=== PATIENT | male | born 1950 | race Caucasian/White ===

== ENCOUNTER → 2016-11-13 | Outpatient (CLI) | payer MEDICARE | LOC: BFHH 12:23 | PROVIDERS: ATTEND Family Medicine | DX: I10 Essential (primary) hypertension (principal); N42.9 Disorder of prostate, unspecified | CPT/HCPCS: 80053; 80061; 84443; 85025; G0103 ==

== ENCOUNTER → 2016-11-16 | Outpatient (CLI) | payer MEDICARE | LOC: GMAM 14:31 | PROVIDERS: ATTEND Family Medicine | DX: D64.9 Anemia, unspecified (principal); R82.99 Other abnormal findings in urine ==

== ENCOUNTER → 2016-12-18 | Outpatient (CLI) | payer MEDICARE | END | disposition home or self-care (01) | LOC: BFHH 16:48 | PROVIDERS: ATTEND Family Medicine | DX: D64.9 Anemia, unspecified (principal) ==

== ENCOUNTER → 2017-01-18 | Outpatient (CLI) | payer MEDICARE | END | disposition home or self-care (01) | LOC: BFHH 13:40 | PROVIDERS: ATTEND Family Medicine | DX: D64.9 Anemia, unspecified (principal) ==

== ENCOUNTER → 2017-03-27 | Outpatient (CLI) | payer MEDICARE | END | disposition home or self-care (01) | LOC: GMAM 14:52 | PROVIDERS: ATTEND Family Medicine | DX: D64.9 Anemia, unspecified (principal); I10 Essential (primary) hypertension ==

== ENCOUNTER → 2017-07-20 | Outpatient (CLI) | payer MEDICARE ==
--- NOTE | 2017-07-21 08:29 | CT ---
PROCEDURE: Head HISTORY: CVA Indication: Same as above Comparison: 05/06/2016 Technique: CT of the head was done without intravenous contrast was done in the orthogonal planes. This exam was performed according to our departmental dose-optimization program, which includes automated exposure control, adjustment of the mA and/or KV according to the patient's size and/or use of iterative reconstruction technique. FINDINGS: There is no intracranial hemorrhage, midline shift, mass effect or acute focal infarct. Stable symmetric prominence of the ventricular system is again noted. Surgical coils are again seen at the level of the third ventricle and the left lateral ventricle If clinical concern exists regarding an acute ischemic/vascular pathology being responsible for patient's symptomatology, an MRI of the brain is more sensitive than the current study, in ruling out such a possibility. There is good stock/white matter differentiation. The mastoid air cells are unremarkable . The paranasal sinuses are unremarkable . There is no visualization of acute fractures involving the calvarium or the skull base. IMPRESSION: There is no intracranial hemorrhage, midline shift, mass effect or acute focal infarct. Stable symmetric prominence of the ventricular system is again noted, unchanged since 07/17/2016. Surgical coils are again seen at the level of the third ventricle and the left lateral ventricle Electronically signed by: Khoa Nicole MD 07/21/2017 8:28 AM CDT Workstation: [id number]
--- NOTE | 2017-07-23 08:54 | US ---
EXAM DESCRIPTION: Carotid Duplex CLINICAL HISTORY: CVA COMPARISON: None TECHNIQUE: Grayscale and color Doppler ultrasound examination of the carotid and vertebral artery systems bilaterally. Maximum peak systolic velocity (PSV) / end diastolic velocity (EDV) measurements were obtained. FINDINGS: RIGHT:Mild calcified plaque identified within the common carotid artery.. The common carotid, proximal, mid and distal internal carotid and external carotid arteries are patent without elevated systolic velocities. Vertebral artery flow is antegrade. LEFT: Mild calcified plaque identified within the common carotid artery.. The common carotid, proximal, mid and distal internal carotid and external carotid arteries are patent without elevated systolic velocities.. Vertebral artery flow is antegrade. IMPRESSION: Mild calcified atherosclerotic disease bilateral common carotid arteries. No hemodynamically significant rate limiting stenosis is present by NASCET criteria. Electronically signed by: Billy James MD 07/23/2017 8:52 AM CDT
== END ==
LOC: MRI 11:02
PROVIDERS: ATTEND Family Medicine
DX: H53.123 Transient visual loss, bilateral (principal); I63.9 Cerebral infarction, unspecified; I65.23 Occlusion and stenosis of bilateral carotid arteries; H53.2 Diplopia; J44.9 Chronic obstructive pulmonary disease, unspecified

== ENCOUNTER → 2017-08-27 | Outpatient (CLI) | payer MEDICARE | END | disposition home or self-care (01) | LOC: GMAM 17:15 | PROVIDERS: ATTEND Family Medicine | DX: R53.83 Other fatigue (principal) ==

== ENCOUNTER → 2018-08-20 | Outpatient (CLI) | payer MEDICARE | LOC: GMAM 13:33 | PROVIDERS: ATTEND Family Medicine | DX: D64.9 Anemia, unspecified (principal); R53.83 Other fatigue ==

== ENCOUNTER → 2018-08-22 | Outpatient (CLI) | payer MEDICARE, OTHER ==
--- NOTE | 2018-08-22 17:27 | CT ---
Procedure: CT LUNG SCREENING Exam Date: 08/22/2018. Ordering Provider: Jose Barajas Clinical Indication: Z87.891 This patient meets eligibility criteria for low-dose CT lung cancer screening. Comparison: Chest CT scan 07/23/2018. Technique: Using a multislice scanner, sequential helical axial imaging was obtained in the thorax, 2.5 mm thickness, 2.5 mm separation, from the level of the thoracic inlet through the lung bases without IV contrast. A low dose protocol was utilized: CTDI: 1.76 mGy. 120. kVp. 45 mA. 2D sagittal and coronal reconstructed images, 6.0 mm thickness, were obtained. This exam was performed according to our departmental dose optimization program which includes use of automated exposure control, adjustment of the mA and/or kV according to patient size and/or use of iterative reconstruction technique. FINDINGS: Lungs and large airways: 1.8 x 0.8 cm semisolid complex associated with asymmetric pleural thickening projecting into the right apex, from the posterior pleura, compared to the contralateral left apex. The nodular components more dense than the adjacent pleural thickening, and measure 7 mm and 6 mm. Axial sequence, images 8-10. Solid nodule abutting the right anterolateral upper lobe associated with pleural thickening measuring 6 mm on image 26. 3 mm solid nodule associated with pleural thickening posterior medial left upper lobe just above the apex images 14-17. Bilateral emphysematous blebs in a centrilobular pattern. Bibasilar scarring. Minimal perihilar peribronchial wall cuffing. No infiltrate or mass bilaterally. Mild hyperinflation.. Pleura: Pleural abnormalities as previously noted. No effusion or pneumothorax bilaterally. Mediastinum and madiha: evaluation limited by low dose technique and lack of IV contrast. Azygos nodes short axis diameter 10 mm. Right paratracheal nodes short axis diameter 11 mm. Other smaller paratracheal nodes. AP window nodes short axis diameter 8 mm. Right hilar short axis lymph node 10 mm. Subcarinal lymph node short axis XI mm. Smaller left hilar nodes. Heart and great vessels: Atherosclerotic calcifications in the proximal brachiocephalic vessels aortic arch and descending thoracic aorta. Coronary artery calcifications. Chest wall, lower neck, axillae: Evaluation also limited by same factors as described above. Small lymph nodes in the neck base bilateral axilla but no soft tissue masses on the chest wall. Upper abdomen: Included peritoneal cavity with no fluid. Bones: Evaluation limited by screening MIP technique. Multiple levels of spondylosis on the resting spine. Arthrosis bilateral sternoclavicular joints. No distinct lytic or blastic bone lesions bilaterally. IMPRESSION: 1. 1.8 cm semisolid complex which is associated with the right posterior apical pleura. 7 mm and 6 mm solid components. 6 mm solid nodule also associated with the pleura of the anterior lateral right upper lobe. Bilateral centrilobular emphysema more prevalent in the upper lung prabhakar. Borderline enlarged nodes in the mediastinum and hilum. Please see below for Lung RADS category and FOLLOW-UP.* *Lung RADS category Category 4a - Findings for which additional diagnostic testing and/or tissue sampling is recommended (5 - 15% malignancy probability). Nodules: Part solid nodule measuring more than 6mm in total with a solid component 6mm to less than 8mm, or with a new or growing less than 4mm solid component. Follow-up: Please return for a Low Dose Chest CT in 3 months for re-evaluation. PET/CT may be used when there is an 8 mm or greater solid component. Electronically signed by: Erick Harman MD 08/22/2018 5:25 PM CDT
== END ==
LOC: CT 09:00
PROVIDERS: ATTEND Family Medicine
DX: Z87.891 Personal history of nicotine dependence (principal)

== ENCOUNTER 2018-10-25 16:25 | Emergency (ER) | payer MEDICARE, OTHER ==
[2018-10-25] MEDS ORDERED: SODIUM CHLORIDE 0.9% 1000ML 1,000 ML IVS ONE (17:02)
--- NOTE | 2018-10-25 17:05 | ED.PDOC ---
History of Present Illness - General Chief Complaint: Respiratory Problem Stated Complaint: SHORTNESS OF BREATH Time Seen by Provider: 10/25/18 16:30 Source: patient, family - History of Present Illness Comments: Has had cough x 2 days and today has had fever , weakness, and confusion Cough Quality/Degree: productive cough Possible Cause: chronic episodes Improving Factors: nothing Worsening Factors: nothing Associated Symptoms: chest pain/soreness, cough, fever/chills, headache, shortness of breath Allergies/Adverse Reactions: Allergies Alprazolam Allergy (Verified 06/01/18 19:51) Hydromorphone [From Dilaudid] Allergy (Verified 06/01/18 19:51) Home Medications: Ambulatory Orders Acetaminophen [Tylenol] 650 mg PO Q6H PRN tab 06/04/18 Albuterol Sulfate Nebs [Proventil Nebs] 2.5 mg NEB Q4H PRN #120 vial 06/04/18 Cefdinir 300 mg PO BID #14 capsule 06/04/18 Escitalopram [Lexapro] 10 mg PO DAILY #30 tab 06/04/18 Ferrous Sulfate [Feosol Tab] 325 mg PO BIDFD #60 tab 06/04/18 Folic Acid 1 mg PO DAILY #30 tab 06/04/18 Gentamicin 0.3% Ophth Ruth Ann [Garamycin Opthalmic Solution] 1 drop BOTH_EYES QID drops 06/04/18 Ipratropium/Albuterol [Duoneb] 3 ml NEB RTQID #120 vial 06/04/18 Nicotine Patch 14 mg [Habitrol Patch 14mg] 1 ea TD DAILY patch 06/04/18 Polyethylene Glycol 3350 [Miralax] 17 gm PO DAILY pckt 06/04/18 levoFLOXacin [Levaquin] 500 mg PO DAILY #7 tab 10/25/18 Review of Systems - Review of Systems Constitutional: States: fever EENTM: States: no symptoms reported Respiratory: States: cough, short of breath Cardiology: States: chest pain Gastrointestinal/Abdominal: Denies: abdominal pain, diarrhea, nausea, vomiting Genitourinary: States: no symptoms reported Musculoskeletal: States: no symptoms reported Skin: States: no symptoms reported Neurological: States: headache Endocrine: States: no symptoms reported Hematologic/Lymphatic: States: no symptoms reported Past Medical History (General) - Patient Medical History Hx Seizures: No Hx Stroke: Yes Hx Asthma: Yes Hx of COPD: Yes Hx Cardiac Disorders: No - per family Hx Congestive Heart Failure: No Hx Pacemaker: No Hx Hypertension: No Hx Thyroid Disease: No Hx Diabetes: No Hx Gastroesophageal Reflux: No Hx Renal Disease: No Hx Cancer: No Hx of HIV: No Hx Hepatitis C: No Hx MRSA: No Surgical History: other - Vaccination History Hx Tetanus, Diphtheria Vaccination: No Hx Influenza Vaccination: Yes Hx Pneumococcal Vaccination: Yes - 2018 - Social History Hx Tobacco Use: Yes Hx Alcohol Use: Yes - in past Hx Substance Use: No Hx Substance Use Treatment: No Hx Depression: No Hx Physical Abuse: No Hx Emotional Abuse: No - Activities of Daily Living Care Home/Assisted [facility] (if applicable)[facility] Family Medical History - Family History Mother Family History: No Known Physical Exam - Physical Exam General Appearance: Alert, Obvious distress Eye Exam: bilateral normal ENT Exam: pharynx normal, other - dry mucosa Neck: non-tender, full range of motion Respiratory: normal breath sounds, rhonchi Cardiovascular/Chest: normal peripheral pulses, regular rate, rhythm, no edema Gastrointestinal/Abdominal: normal bowel sounds, non tender, soft Extremity: normal range of motion, non-tender, normal inspection, no pedal edema Neurologic: alert, normal mood/affect, oriented x 3 Skin Exam: normal color, warm/dry Departure - Departure Clinical Impression: COPD (chronic obstructive pulmonary disease) Qualifiers: COPD type: COPD with acute lower respiratory infection Qualified Code(s): J44.0 - Chronic obstructive pulmonary disease with acute lower respiratory infection Disposition: Discharge to SNF Condition: Fair Departure Forms: ED Discharge - Pt. Copy, Patient Portal Self Enrollment Referrals: Lee Johnson MD [Primary Care Provider] - 1-2 Weeks Prescriptions: levoFLOXacin [Levaquin] 500 mg PO DAILY #7 tab Home Medications: Ambulatory Orders Acetaminophen [Tylenol] 650 mg PO Q6H PRN tab 06/04/18 Albuterol Sulfate Nebs [Proventil Nebs] 2.5 mg NEB Q4H PRN #120 vial 06/04/18 Cefdinir 300 mg PO BID #14 capsule 06/04/18 Escitalopram [Lexapro] 10 mg PO DAILY #30 tab 06/04/18 Ferrous Sulfate [Feosol Tab] 325 mg PO BIDFD #60 tab 06/04/18 Folic Acid 1 mg PO DAILY #30 tab 06/04/18 Gentamicin 0.3% Ophth Ruth Ann [Garamycin Opthalmic Solution] 1 drop BOTH_EYES QID drops 06/04/18 Ipratropium/Albuterol [Duoneb] 3 ml NEB RTQID #120 vial 06/04/18 Nicotine Patch 14 mg [Habitrol Patch 14mg] 1 ea TD DAILY patch 06/04/18 Polyethylene Glycol 3350 [Miralax] 17 gm PO DAILY pckt 06/04/18 levoFLOXacin [Levaquin] 500 mg PO DAILY #7 tab 10/25/18
--- NOTE | 2018-10-25 17:11 | RAD ---
EXAM DESCRIPTION: Chest,1 View CLINICAL HISTORY: Chest discomfort COMPARISON: Chest radiograph dated June 03, 2018 TECHNIQUE: Single upright portable frontal view the chest FINDINGS: Cardiomediastinal silhouette and pulmonary vascularity are within normal limits. Lung volumes are hyperinflated, compatible with COPD. Lungs show no confluent infiltrates. No pleural effusion. No pneumothorax. No acute osseous abnormality. IMPRESSION: 1. No acute cardiopulmonary process. 2. COPD. Electronically signed by: Daron Granda MD 10/25/2018 5:09 PM [facility]
[2018-10-25] MEDS ORDERED: IPRATROPIUM/ALBUTEROL 3 ML VIAL NEB ONE (17:15)
[2018-10-25] MEDS ORDERED: ACETAMINOPHEN 500 MG TAB ONE (17:55)
[2018-10-25] MEDS ORDERED: ACETAMINOPHEN 500 MG TAB PO ONE (17:57)
[2018-10-25] MEDS ORDERED: levoFLOXacin 750MG IV 750 MG in PREMIX BAG 1 BAG IVPB ONE (19:08)
[2018-10-25 20:54] VITALS: O2SAT 94
[2018-10-25 21:53] VITALS: BP 106/54; TEMP 99.1
== END 2018-10-25 21:10 ==
LOC: ER 16:25
DX: J44.0 Chronic obstructive pulmonary disease with (acute) lower respiratory infection (principal); Z87.891 Personal history of nicotine dependence; Z86.73 Personal history of transient ischemic attack (TIA), and cerebral infarction without residual deficits; Z79.899 Other long term (current) drug therapy; Z88.8 Allergy status to other drugs, medicaments and biological substances
CPT/HCPCS: 36415; 36600; 71045; 80053; 82803; 82805; 85025; 87040; 87502; 94640; J1956; J7030; J7620

== ENCOUNTER 2018-11-19 09:52 | Inpatient (IN) | payer MEDICARE ==
--- NOTE | 2018-11-19 10:48 | RAD ---
EXAM DESCRIPTION: Chest,1 View CLINICAL HISTORY: sob, confusion COMPARISON: 25 October 2018 TECHNIQUE: AP portable chest FINDINGS: The lungs are free of acute infiltrate. A background of chronic interstitial lung disease is noted. The heart is within range of normal. No pleural fluid is seen. IMPRESSION: Findings suggestive of chronic obstructive pulmonary disease are observed. No acute infiltrate is detected. Electronically signed by: Daron Dacosta MD 11/19/2018 10:47 AM [facility]
[2018-11-19] MEDS ORDERED: IPRATROPIUM/ALBUTEROL 3 ML VIAL NEB ONE (11:11)
[2018-11-19] MEDS ORDERED: SODIUM CHLORIDE 0.9% 1000ML 500 ML IVS ONE (11:11)
[2018-11-19] MEDS ORDERED: methylPREDNISolone SODIUM SUC 125 MG/2 ML VIAL IV ONE (11:57)
[2018-11-19] MEDS ORDERED: AZITHROMYCIN IV 500 MG in SODIUM CHLORIDE 0.9% 250ML 250 ML IVPB ONE (11:57)
[2018-11-19] MEDS ORDERED: CEFEPIME 2 GM in SODIUM CHL 0.9% 50ML MIN-BAG+ 50 ML IVPB ONE (11:57)
--- NOTE | 2018-11-19 12:05 | ED.PDOC ---
History of Present Illness - General Chief Complaint: Respiratory Problem Stated Complaint: cough and congestion with some low grade fever Time Seen by Provider: 11/19/18 09:59 Source: patient Exam Limitations: no limitations - History of Present Illness Initial Comments: the patient is 68-year-old male with end-stage COPD presenting to the emergency room secondary to confusion and fevers for the last 1-3 days. He has also had a productive cough. He does have fairly advanced COPD and does have optional oxygen at the senior living. It appears however that the last few months he has not been wearing his oxygen. Oxygen saturations checked earlier today while he was off of oxygen showed saturations down around 83-85% on room air. He is requiring about 2-1/2 L to maintain oxygen saturation greater than 90% here. The patient did have some significant confusion upon arrival here but once we got Oxygen after 30 minutes to an hour his confusion seems to have r esolved. He does have diffuse wheezes and significant decreased air movement bilaterally. He also does have scattered rales though is difficult to tell how much of this part is new. Reported fevers are up to 102 from the senior living by secondhand information. Timing/Duration: unsure Severity: moderate Improving Factors: nothing, other - Oxygen Worsening Factors: nothing Associated Symptoms: fever/chills, shortness of breath Allergies/Adverse Reactions: Allergies Alprazolam Allergy (Verified 06/01/18 19:51) Hydromorphone [From Dilaudid] Allergy (Verified 06/01/18 19:51) Home Medications: Ambulatory Orders Acetaminophen [Tylenol] 650 mg PO Q6H PRN tab 06/04/18 Albuterol Sulfate Nebs [Proventil Nebs] 2.5 mg NEB Q4H PRN #120 vial 06/04/18 Cefdinir 300 mg PO BID #14 capsule 06/04/18 Escitalopram [Lexapro] 10 mg PO DAILY #30 tab 06/04/18 Ferrous Sulfate [Feosol Tab] 325 mg PO BIDFD #60 tab 06/04/18 Folic Acid 1 mg PO DAILY #30 tab 06/04/18 Gentamicin 0.3% Ophth Ruth Ann [Garamycin Opthalmic Solution] 1 drop BOTH_EYES QID drops 06/04/18 Ipratropium/Albuterol [Duoneb] 3 ml NEB RTQID #120 vial 06/04/18 Nicotine Patch 14 mg [Habitrol Patch 14mg] 1 ea TD DAILY patch 06/04/18 Polyethylene Glycol 3350 [Miralax] 17 gm PO DAILY pckt 06/04/18 levoFLOXacin [Levaquin] 500 mg PO DAILY #7 tab 10/25/18 Review of Systems - Review of Systems Constitutional: States: fever, malaise EENTM: States: nose congestion Respiratory: States: cough, short of breath, wheezing Cardiology: States: no symptoms reported Gastrointestinal/Abdominal: States: no symptoms reported Genitourinary: States: no symptoms reported Musculoskeletal: States: no symptoms reported Skin: States: no symptoms reported Neurological: States: other - mild confusion Endocrine: States: no symptoms reported All other Systems: No Change from Baseline Past Medical History (General) - Patient Medical History Hx Seizures: No Hx Stroke: Yes Hx Asthma: Yes Hx of COPD: Yes Hx Cardiac Disorders: No - per family Hx Congestive Heart Failure: No Hx Pacemaker: No Hx Hypertension: No Hx Thyroid Disease: No Hx Diabetes: No Hx Gastroesophageal Reflux: No Hx Renal Disease: No Hx Cancer: No Hx of HIV: No Hx Hepatitis C: No Hx MRSA: No - Vaccination History Hx Tetanus, Diphtheria Vaccination: Yes Hx Influenza Vaccination: Yes Hx Pneumococcal Vaccination: Yes Immunizations Up to Date: Yes - Social History Hx Tobacco Use: Yes Hx Alcohol Use: No Hx Substance Use: No Hx Substance Use Treatment: No Hx Depression: No Hx Physical Abuse: No Hx Emotional Abuse: No - Activities of Daily Living Detention/[facility]isted [facility] (if applicable)[facility] Family Medical History - Family History Mother Family History: No Known Physical Exam - Physical Exam General Appearance: Alert, Frail, Ill Appearing Eye Exam: right normal, left other - he keeps his left eye closed most the time Ears, Nose, Throat: hearing grossly normal - chronically decreased bilaterally, normal pharynx, nasal congestion Neck: full range of motion, supple Respiratory: accessory muscle use - moderate, crackles, rales, rhonchi, wheezing Cardiovascular/Chest: normal peripheral pulses, regular rate, rhythm, no edema Peripheral Pulses: radial,right: 2+, radial,left: 2+, dorsalis pedis,right: 2+, dorsalis pedis,left: 2+ Gastrointestinal/Abdominal: non tender, soft Rectal Exam: deferred Back Exam: no CVA tenderness, no vertebral tenderness Extremity: normal range of motion, non-tender, normal inspection, no pedal edema, normal capillary refill Neurologic: printmaker II-XII nml as tested, alert, normal mood/affect, oriented x 3 Skin Exam: normal color Comments: Vital Signs - 24 hr 11/19/18 11/19/18 11/19/18 10:08 10:16 11:36 Temperature 98.8 F Pulse Rate 82 Pulse Rate [ 78 monitor] Respiratory 20 20 18 Rate Blood Pressure 140/62 [LA] O2 Sat by Pulse 86 L 96 Oximetry Progress - Progress Progress: 11/19/18 12:07 the patient is a 68-year-old male presenting with what appears to be a hypoxic encephalopathy. His mental status did clear significantly after an hour of appropriate oxygen application. The patient appears to have a least a significant COPD exacerbation going. He does need to remain on at least a couple of liters of oxygen for the next few days. He has received breathing treatments, steroids, cefepime and azithromycin. Blood and sputum cultures are being done and a urine is currently being collected. He has tested negative for influenza. Admit for further care. - Results/Orders Results/Orders: chest x-rays consistent with chronic changes from COPD. No obvious large lobar pneumonia. Laboratory Tests 11/19/18 11/19/18 11/19/18 10:22 10:22 10:22 WBC 11.7 H RBC 4.13 L Hgb 12.3 L Hct 39.1 L MCV 94.7 H MCH 29.7 MCHC 31.4 L RDW 14.6 H Plt Count 174 MPV 9.3 Absolute Neuts (auto) 9.30 H Absolute Lymphs (auto) 0.60 L Absolute Monos (auto) 1.70 H Absolute Eos (auto) 0.10 Absolute Basos (auto) 0.00 Neutrophils % 79.3 H Lymphocytes % 5.0 L Monocytes % 14.6 H Eosinophils % 0.7 L Basophils % 0.4 Sodium 138 Potassium 4.2 Chloride 101 Carbon Dioxide 29 Anion Gap 12.2 BUN 20 H Creatinine 0.73 BUN/Creatinine Ratio 27.4 H Random Glucose 122 H Serum Osmolality 279.6 Lactic Acid 1.0 Calcium 8.7 Total Bilirubin 0.5 AST 27 ALT 21 Alkaline Phosphatase 100 Creatine Kinase 56 CK-MB (CK-2) 2.6 CK-MB (CK-2) % Not Reportable Troponin I < 0.02 B-Natriuretic Peptide 300.0 H* Serum Total Protein 6.8 Albumin 3.2 Globulin 3.6 H Albumin/Globulin Ratio 0.9 L Rapid flu is negative. Departure - Departure Clinical Impression: COPD with acute exacerbation, Hypoxic encephalopathy Disposition: Admit Patient Referrals: Lee Johnson MD [Primary Care Provider] - 1-2 Weeks Home Medications: Ambulatory Orders Acetaminophen [Tylenol] 650 mg PO Q6H PRN tab 06/04/18 Albuterol Sulfate Nebs [Proventil Nebs] 2.5 mg NEB Q4H PRN #120 vial 06/04/18 Cefdinir 300 mg PO BID #14 capsule 06/04/18 Escitalopram [Lexapro] 10 mg PO DAILY #30 tab 06/04/18 Ferrous Sulfate [Feosol Tab] 325 mg PO BIDFD #60 tab 06/04/18 Folic Acid 1 mg PO DAILY #30 tab 06/04/18 Gentamicin 0.3% Ophth Ruth Ann [Garamycin Opthalmic Solution] 1 drop BOTH_EYES QID drops 06/04/18 Ipratropium/Albuterol [Duoneb] 3 ml NEB RTQID #120 vial 06/04/18 Nicotine Patch 14 mg [Habitrol Patch 14mg] 1 ea TD DAILY patch 06/04/18 Polyethylene Glycol 3350 [Miralax] 17 gm PO DAILY pckt 06/04/18 levoFLOXacin [Levaquin] 500 mg PO DAILY #7 tab 10/25/18 Decision To Admit - Decistion To Admit Decision to Admit Reason: Medical Nature Decision to Admit Date: 11/19/18 Decision to Admit Time: 12:08
[2018-11-19] MEDS ORDERED: CEFEPIME 2 GM VIAL ONE ×2 (12:10→22:47)
[2018-11-19] MEDS ORDERED: SODIUM CHLORIDE 0.9% 250ML 250 ML ONE (12:10)
[2018-11-19] MEDS ORDERED: SODIUM CHL 0.9% 50ML MIN-BAG+ 50 ML IVPB ONE ×2 (12:10→22:47)
[2018-11-19] MEDS ORDERED: AZITHROMYCIN IV 500 MG VIAL IVPB ONE (12:10)
--- NOTE | 2018-11-19 13:16 | HP ---
SUPERVISING PHYSICIAN: Clemente Banerjee M.D. CHIEF COMPLAINT: Cough and congestion with a fever. HISTORY OF PRESENT ILLNESS: Mr. Rashid is a 68 year-old male patient that lives at [facility]. He has a history of end stage chronic obstructive pulmonary disease and he presented to the Emergency Room today secondary to confusion and fevers that have been occurring over the last 3 days. He was also noted to have a productive cough and has been using some oxygen at the [facility]. It has been noted that the patient apparently has not been using his oxygen in the last month and his oxygen saturations today were showing off oxygen to be around 83 to 85%. In the E. R., he was requiring 2.5 liters to maintain saturations of 90%. On arrival to the Emergency Room it was noted he was showing significant confusion when not on oxygen, but within 30 minutes of placement on oxygen his confusion resolved. He was also noted to have significant wheezing and decreased air movement bilaterally with scattered rales. There was reported fevers in the [facility] up to 102. His x-ray in the E. R. per radiology interpretation showed findings suggestive chronic obstructive pulmonary disease observed, but no acute infiltrate was detected. Laboratory studies showed he had a leukocytosis of 11,700 with a left shift. Hemoglobin was 12.3, hematocrit 39.1. Chemistries showed BNP elevated at 300, otherwise troponin was normal at less than 0.02 and electrolytes were showing to be within normal limits. Lactic acid was 1. Given the patient's confusion off oxygen and findings consistent with an exacerbation of COPD, Dr. Tacho Johnson, E. R. physician, requested the patient be admitted for ongoing evaluation and further treatment. He also had an Influenza swab that was negative. Prior to admission he was given breathing treatments, steroids and started on antibiotics with Cefepime and azithromycin with concerns for healthcare acquired pneumonia. The patient was admitted in stable condition. PAST MEDICAL HISTORY: 1. Chronic obstructive pulmonary disease. 2. 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 3. Dementia with depression. PAST SURGICAL HISTORY: 1. Cataract removal. 2. 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 CURRENT MEDICATIONS: 1. Vitamin C 1 tablet daily. 2. Debrox otic 6.5% both ears daily as needed. 3. Albuterol nebulizers 2.5 mg every 4 hours as needed. 4. Tylenol 650 mg every 6 hours as needed. 5. Artificial Tears both eyes as needed every 6 hours. 6. Folic acid 1 mg daily. 7. Ferrous tablet 325 mg daily. 8. Polyethylene glycol 1450 one dose daily. 9. Breo Ellipta one inhalation daily. 10. Escitalopram oxalate 10 mg daily. 11. Spiriva Respimat 2.5 mcg daily. ALLERGIES: ALPRAZOLAM AND HYDROMORPHONE. FAMILY HISTORY: Positive for COPD and alcoholism. SOCIAL HISTORY: The patient lives at [facility]. 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 He is . Has 2 children. He does have a history of alcohol usage quite heavily but quit in 2013. He is a current smoker of 1 to 5 cigarettes per day. REVIEW OF SYSTEMS: CONSTITUTIONAL: Positive for fever reported up to 102 with general malaise. No reported unintentional weight loss. Noted some generalized weakness. HEENT: History of double vision from past hemorrhagic stroke as noted in his history. Positive for nasal congestion. Negative for ear aches or sore throat. RESPIRATORY: Positive for cough, shortness of breath and wheezing. CARDIOVASCULAR: Negative for any chest pains, palpitations, syncopal episodes or peripheral edema. GASTROINTESTINAL: Negative for nausea, vomiting, diarrhea, constipation or abdominal pains. GENITOURINARY: Denies any dysuria, hematuria, polyuria or other urinary symptoms. NEUROLOGIC: Negative for ataxia, headaches, seizure activity, syncopal episodes. PHYSICAL EXAMINATION: VITAL SIGNS: Temperature 98.8, pulse 78, blood pressure 140/62, respirations 20, satting 86% on room air, improving to 96% on nasal cannula at 2 liters after a breathing treatment. Weight 58.7 kg which is significantly lower than previous admission on 06/01/18 at which time he weighed 70.4 kg. GENERAL: The patient does appear ill, frail, somewhat cathartic. He is very unkempt but he appears to be in no distress. He is alert. HEENT: Tympanic membranes were partially occluded with cerumen bilaterally. Oropharynx was pink with dry mucosal membranes but no lesions or rashes. 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 He does have notably increased hearing loss. NECK: Supple with full range of motion. No jugular venous distention. Non- tender. CHEST: Lung sounds were notable for crackles, rales, rhonchi and wheezing throughout. CARDIOVASCULAR: Regular rate and rhythm without appreciable murmurs, gallops, or rubs. ABDOMEN: Soft, non-tender. Positive bowel sounds. EXTREMITIES: No edema, clubbing or cyanosis. Nail beds both on bilateral upper extremities and lower extremities show advanced onychomycosis. NEUROLOGIC: Cranial nerves II-XII are grossly intact. He is alert and oriented times three. Facial features were symmetrical except for his left eye remains closed on exam. No other neurological deficits are noted. LABORATORY: CBC shows leukocytosis of 11,700 with hemoglobin 12.3, hematocrit 39.1, platelet count 174,000. RBC indices indicated a microcytic/hypochromic presentation likely due to chronic iron deficiency. Differential does show a left shift. Chemistries show normal electrolytes with BUN 20, creatinine 0.73, lactic acid 1.0. Liver functions showing to be within normal limits. Troponin less than 0.02. BNP was elevated at 300. Urinalysis showed just 15 of ketones, otherwise within normal limits. MICROBIOLOGY: Influenza A and B by PCR was negative. RADIOLOGY: Portable chest x-ray per radiology interpretation showed findings suggestive of chronic obstructive pulmonary disease but no acute infiltrate was detected. ASSESSMENT: 1. Hypoxic encephalopathy due to chronic obstructive pulmonary disease exacerbation improving with oxygen. 2. Exacerbation of chronic obstructive pulmonary disease with concerns for developing healthcare acquired pneumonia resulting in hypoxemia and underlying symptoms as noted in #1. 3. History of dementia and depression. 4. History of cerebrovascular accident with left eye vision loss. 5. Onychomycosis of both upper and lower extremities. 6. History of dementia and depression. PLAN: The patient is going to be admitted to the hospital for ongoing treatment of exacerbation of chronic obstructive pulmonary disease. Again, there is some concern for possible healthcare associated pneumonia, therefore will continue with more aggressive antibiotic management with Cefepime and azithromycin. He will be on aggressive pulmonary hygiene with DuoNeb treatments q.i.d. and aggressive pulmonary toiletry. Will resume his home medications once those have been updated and verified. I will go ahead and start him on some fluids with some D5 half normal saline with 20 of potassium at 80. He will be on DVT prophylaxis as per protocol. Will plan to repeat labs and x-rays in the morning. He will be provided O2 as needed and likely will need to continue with O2 therapy once discharged. Will anticipate his length of stay to be at least 2 to 3 days. Until the patient can transition to outpatient management will continue to monitor and treat as needed. #[id number] [facility]
[2018-11-19] MEDS ORDERED: SODIUM CHLORIDE 0.9% (FLUSH) 10 ML SYG IV PRN (14:44)
[2018-11-19] MEDS ORDERED: ALBUTEROL SULFATE 2.5 MG/3 ML VIAL NEB PRN (14:44)
[2018-11-19] MEDS ORDERED: IV SET AND CAP CHANGE INJ INJ SCH (15:00)
[2018-11-19] MEDS: KCL 20MEQ/D5 1/2NS 1,000 ML IVS PRN (15:29)
[2018-11-19] MEDS: IPRATROPIUM/ALBUTEROL 3 ML VIAL INH SCH ×2 (16:20→20:35)
[2018-11-19] MEDS ORDERED: CARBOXYMETHYLCELLULOSE 0.5% OPHTH SOL 0.4 ML UD ONE (22:45)
[2018-11-19] MEDS: ARTIFICIAL TEARS BOTH_EYES SCH (22:48)
[2018-11-19] MEDS ORDERED: CEFEPIME 2 GM in SODIUM CHL 0.9% 50ML MIN-BAG+ 50 ML IVPB SCH (23:30)
[2018-11-20] MEDS: ARTIFICIAL TEARS BOTH_EYES SCH ×2 (03:15→09:14)
[2018-11-20] MEDS: KCL 20MEQ/D5 1/2NS 1,000 ML IVS PRN (04:14)
--- NOTE | 2018-11-20 07:08 | RAD ---
PROCEDURE: XR Chest, 2 Views CLINICAL INDICATION: The patient is 68 years old and is Male; Pneumonia TECHNIQUE: Frontal and lateral views of the chest. COMPARISON: One day earlier and from 11/08/2018 FINDINGS: LUNGS: The lungs are clear and free of focal consolidation. Lungs are hyperinflated. There is flattening of the hemidiaphragms on the lateral view with increased A-P diameter and biapical lucency. This is compatible with the presence of chronic obstructive pulmonary disease. Pulmonary vascularity is normal. Mild prominence of the interstitial markings are noted. PLEURAL SPACE: There is a trace RIGHT pleural effusion noted. It is better seen on lateral view. There is NO pneumothorax. HEART: The heart size is top normal MEDIASTINUM: The mediastinal contour is unremarkable. BONES/JOINTS: There are degenerative changes of the spine identified. No acute abnormality. TUBES, LINES AND DEVICES: There are electrocardiogram leads present. IMPRESSION: 1. The lungs are clear and free of focal consolidation. 2. There is a trace RIGHT pleural effusion noted. It is better seen on lateral view. Electronically signed by: Jarod Meadows MD 11/20/2018 7:06 AM [employer]
[2018-11-20] MEDS: IPRATROPIUM/ALBUTEROL 3 ML VIAL INH SCH ×4 (07:56→20:28)
[2018-11-20] MEDS ORDERED: NON-FORMULARY MEDICATION 1 EA MIS (Fluticasone Furoate-Vilanterol [Breo Ellipta 100-25 Mcg IN SCH (09:00)
[2018-11-20] MEDS ORDERED: NON-FORMULARY MEDICATION 1 EA MIS (Tiotropium Bromide Monohydrate [Spiriva Respimat] 2.5 M IN SCH (09:00)
[2018-11-20] MEDS ORDERED: POLYETHYLENE GLYCOL XX SCH (09:00)
[2018-11-20] MEDS: ESCITALOPRAM 10 MG TAB PO SCH (09:06)
[2018-11-20] MEDS: FOLIC ACID 1 MG TAB PO SCH (09:06)
[2018-11-20] MEDS: FERROUS SULFATE 325 MG TAB PO SCH (09:06)
[2018-11-20] MEDS: ENOXAPARIN SODIUM 40 MG/0.4 ML SYG SUBCU SCH (09:07)
[2018-11-20] MEDS ORDERED: SODIUM CHLORIDE 0.9% 250ML 250 ML ONE (10:07)
[2018-11-20] MEDS ORDERED: AZITHROMYCIN IV 500 MG VIAL IVPB ONE (10:08)
[2018-11-20] MEDS: AZITHROMYCIN IV 500 MG in SODIUM CHLORIDE 0.9% 250ML 250 ML IVPB SCH (10:13)
[2018-11-20] MEDS ORDERED: POLYVINYL ALCOHOL 1.4% OPHTH SOL 1 DROP BOTH_EYES SCH (11:00)
[2018-11-20] MEDS ORDERED: POLYVINYL ALCOHOL 1.4% OPHTH SOL 1 DROP BOTH_EYES PRN (12:18)
[2018-11-20] MEDS ORDERED: SODIUM CHL 0.9% 50ML MIN-BAG+ 50 ML IVPB ONE ×2 (12:34→19:28)
[2018-11-20] MEDS ORDERED: CEFEPIME 2 GM VIAL ONE ×2 (12:34→19:28)
[2018-11-20] MEDS: guaiFENesin ER TAB 600 MG TAB PO SCH ×2 (12:39→20:30)
[2018-11-20] MEDS: CEFEPIME 2 GM in SODIUM CHL 0.9% 50ML MIN-BAG+ 50 ML IVPB SCH (12:45)
[2018-11-20] MEDS: BENZONATATE PERLES 100 MG CAP PO SCH (20:31)
--- NOTE | 2018-11-20 21:53 | PN ---
DATE: 11/20/18 SUPERVISING PHYSICIAN: Clemente Banerjee M.D. SUBJECTIVE: The patient is lying in bed watching television. States he feels much better. He complains of some shortness of breath with exertion but otherwise denies nausea, vomiting or chest pain. It was reported he had a very large bowel movement today. OBJECTIVE: VITAL SIGNS: Temperature 97.9, heart rate 81, blood pressure 116/64, respiratory rate 20, O2 sat is 93 on 2 liters nasal cannula. It has dropped as low as 88 on 2 liters nasal cannula. RESPIRATORY: Diminished breath sounds throughout with an expiratory wheeze in the right lower lung field. He is slightly tachypneic at times. CARDIAC: Regular rate and rhythm. GASTROINTESTINAL: Abdomen is soft, nondistended, non-tender. Bowel sounds are positive. NEUROLOGIC: He is awake. He is alert to person only. LABORATORY: Electrolytes are basically within normal limits with the exception of his calcium is slightly low at 8.2. WBCs have normalized to 9.3 with hemoglobin 10.7 and hematocrit 33.6. He does have a left shift on differential. Sputum culture is pending. Chest x-ray shows lungs that are clear and free of focal consolidation and there is a trace of right pleural effusion noted. All other labs and films have been reviewed via the EMR. ASSESSMENT: 1. Hypoxic encephalopathy due to chronic obstructive pulmonary disease exacerbation improving with oxygen. 2. Exacerbation of chronic obstructive pulmonary disease with concerns for developing healthcare acquired pneumonia resulting in hypoxemia and underlying symptoms as noted in #1. 3. History of dementia and depression. 4. History of cerebrovascular accident with left eye vision loss. 5. Onychomycosis of both upper and lower extremities. 6. History of dementia and depression. PLAN: We will continue present supportive care. He will continue on his Cefepime. He has only received 1 IV steroid dose and at this point I think he is progressing clinically well enough that he does not need them, but I will reevaluate that tomorrow. His Spiriva and Breo from the residential have been restarted. I have discontinued his primary IV fluids and will recheck his lab in the morning. I have also given him some Mucinex. I will also order some Tessalon Perles. We will continue to monitor him closely and follow as needed. Dr. Banerjee is the collaborating physician available for consultation. #[id number] [facility]
[2018-11-21] MEDS: CEFEPIME 2 GM in SODIUM CHL 0.9% 50ML MIN-BAG+ 50 ML IVPB SCH ×3 (00:06→23:30)
[2018-11-21] MEDS: ACETAMINOPHEN 325 MG TAB PO PRN ×2 (01:30→17:26)
[2018-11-21] MEDS ORDERED: SODIUM CHLORIDE 0.9% 250ML 250 ML ONE (07:50)
[2018-11-21] MEDS ORDERED: AZITHROMYCIN IV 500 MG VIAL IVPB ONE (07:51)
[2018-11-21] MEDS ORDERED: NON-FORMULARY MEDICATION 1 EA MIS (Tiotropium Bromide Monohydrate [Spiriva Respimat] 2.5 M IN SCH (08:00)
[2018-11-21] MEDS: ESCITALOPRAM 10 MG TAB PO SCH (08:29)
[2018-11-21] MEDS: ENOXAPARIN SODIUM 40 MG/0.4 ML SYG SUBCU SCH (08:29)
[2018-11-21] MEDS: FOLIC ACID 1 MG TAB PO SCH (08:29)
[2018-11-21] MEDS: guaiFENesin ER TAB 600 MG TAB PO SCH ×2 (08:29→21:04)
[2018-11-21] MEDS: POLYETHYLENE GLYCOL 3350 17 GM PCKT PO SCH (08:30)
[2018-11-21] MEDS: FERROUS SULFATE 325 MG TAB PO SCH (08:30)
[2018-11-21] MEDS: BENZONATATE PERLES 100 MG CAP PO SCH ×3 (08:32→21:04)
[2018-11-21] MEDS: NON-FORMULARY MEDICATION 1 EA MIS (Fluticasone Furoate-Vilanterol [Breo Ellipta 100-25 Mcg IN SCH (08:48)
[2018-11-21] MEDS: IPRATROPIUM/ALBUTEROL 3 ML VIAL INH SCH ×4 (08:48→20:05)
[2018-11-21] MEDS: TIOTROPIUM INHALER INH SCH (08:48)
[2018-11-21] MEDS: AZITHROMYCIN IV 500 MG in SODIUM CHLORIDE 0.9% 250ML 250 ML IVPB SCH (09:59)
[2018-11-21] MEDS ORDERED: CEFEPIME 2 GM VIAL ONE ×2 (12:53→20:59)
[2018-11-21] MEDS ORDERED: SODIUM CHL 0.9% 50ML MIN-BAG+ 50 ML IVPB ONE ×2 (12:53→20:59)
--- NOTE | 2018-11-21 13:25 | PN ---
SUPERVISING PHYSICIAN: Aaron Banerjee MD DATE: 11/21/18 SUBJECTIVE: The patient is lying in bed. He is confused although he does say he feels worse today. He has some shortness of breath. He denies any chest pain, nausea or vomiting. OBJECTIVE: VITAL SIGNS: Temperature 97.9. Heart rate 72. Blood pressure 129/64. Respiratory rate 20. O2 saturation 92% on 1 liter nasal cannula. RESPIRATORY: Diminished breath sounds throughout. He has some scattered rhonchi. No wheezing noted. He is slightly tachypneic and speaks in short phrases. CARDIAC: Regular rate and rhythm. GASTROINTESTINAL: Abdomen is soft, nondistended, nontender. Bowel sounds are positive. NEUROLOGIC: Awake, alert and oriented to person only. LABORATORY: Electrolytes are basically within normal limits. BUN slightly low at 9.2. AST 67, ALT 87. WBCs 10.1, hemoglobin 10.3, hematocrit 33.3. Differential is normal on his CBC. We are still awaiting his sputum culture. All other labs and films have been reviewed via the EMR. ASSESSMENT: 1. Hypoxic encephalopathy due to chronic obstructive pulmonary disease exacerbation improving with oxygen. 2. Exacerbation of chronic obstructive pulmonary disease with concerns for developing healthcare acquired pneumonia resulting in hypoxemia and underlying symptoms as noted in #1. 3. History of dementia and depression. 4. History of cerebrovascular accident with left eye vision loss. 5. Onychomycosis of both upper and lower extremities. 6. History of dementia and depression. 7. Elevated liver enzymes. PLAN: We will continue present supportive care including good pulmonary hygiene. I have consulted physical therapy for safety for discharge. We are continuing to monitor his sputum culture which has not been resulted yet. For some reason, his AST and ALT slightly elevated overnight and he has no history per our EMR with elevated liver enzymes, so I will repeat his CMP in the morning as well as chest x-ray and hopefully we can discharge him tomorrow back to [facility]. We will continue to monitor the patient closely and follow as needed. #[id number] [facility]
--- NOTE | 2018-11-22 07:22 | RAD ---
CHEST 11/22/2018 CLINICAL HISTORY: COPD COMPARISON: 11/20/2018 TECHNIQUE: AP and lateral Chest. FINDINGS: The cardiac size is normal. Lungs are hyperinflated with flattening of the right and left hemidiaphragm. There is minimal biapical pleural thickening. Coarse interstitial opacities are stable. There is slight blunting of the costophrenic angles posteriorly which is likely related to the hyperinflation rather than true pleural fluid Unremarkable soft tissues. Mild thoracic spondylosis. IMPRESSION: 1. COPD. Chronic interstitial lung changes. No acute disease. Electronically signed by: Merlyn Clark DO 11/22/2018 7:21 AM [facility]
[2018-11-22] MEDS ORDERED: SODIUM CHLORIDE 0.9% 250ML 250 ML ONE (07:23)
[2018-11-22] MEDS ORDERED: AZITHROMYCIN IV 500 MG VIAL IVPB ONE (07:24)
[2018-11-22] MEDS ORDERED: ALUMINUM & MAGNESIUM HYDROXIDE 30 ML UD PO PRN (08:33)
[2018-11-22] MEDS: TIOTROPIUM INHALER INH SCH (08:35)
[2018-11-22] MEDS: NON-FORMULARY MEDICATION 1 EA MIS (Fluticasone Furoate-Vilanterol [Breo Ellipta 100-25 Mcg IN SCH (08:35)
[2018-11-22] MEDS: IPRATROPIUM/ALBUTEROL 3 ML VIAL INH SCH ×2 (08:35→13:20)
[2018-11-22] MEDS: POLYETHYLENE GLYCOL 3350 17 GM PCKT PO SCH (08:37)
[2018-11-22] MEDS: ESCITALOPRAM 10 MG TAB PO SCH (08:37)
[2018-11-22] MEDS: ENOXAPARIN SODIUM 40 MG/0.4 ML SYG SUBCU SCH (08:37)
[2018-11-22] MEDS: guaiFENesin ER TAB 600 MG TAB PO SCH (08:37)
[2018-11-22] MEDS: BENZONATATE PERLES 100 MG CAP PO SCH (08:37)
[2018-11-22] MEDS: FERROUS SULFATE 325 MG TAB PO SCH (08:38)
[2018-11-22] MEDS: FOLIC ACID 1 MG TAB PO SCH (08:38)
[2018-11-22] MEDS: AZITHROMYCIN IV 500 MG in SODIUM CHLORIDE 0.9% 250ML 250 ML IVPB SCH (10:23)
[2018-11-22] MEDS ORDERED: CEFEPIME 2 GM VIAL ONE (11:58)
[2018-11-22] MEDS ORDERED: SODIUM CHL 0.9% 50ML MIN-BAG+ 50 ML IVPB ONE (11:58)
[2018-11-22] MEDS: CEFEPIME 2 GM in SODIUM CHL 0.9% 50ML MIN-BAG+ 50 ML IVPB SCH (12:32)
[2018-11-22 13:48] VITALS: BP 130/70; TEMP 98; O2SAT 92
--- NOTE | 2018-11-22 17:24 | DS ---
SUPERVISING PHYSICIAN: Clemente Banerjee M.D. DISCHARGE DIAGNOSIS: 1. Hypoxic encephalopathy due to chronic obstructive pulmonary disease exacerbation improving with oxygen. 2. Exacerbation of chronic obstructive pulmonary disease with concerns for developing healthcare acquired pneumonia resulting in hypoxemia and underlying symptoms as noted in #1. 3. History of dementia and depression. 4. History of cerebrovascular accident with left eye vision loss. 5. Onychomycosis of both upper and lower extremities. 6. History of dementia and depression. 7. Elevated liver enzymes. HISTORY OF PRESENT ILLNESS: This is a 68 year-old male patient who is a resident of [facility]. He has a history of end stage chronic obstructive pulmonary disease and came to the Emergency Room secondary to confusion and elevated temperature that had been occurring over 3 days prior to his admission. He had a productive cough and has been using some oxygen at the custodial. Although he is O2 dependent, the patient has apparently not been using his oxygen in the last month and his O2 saturations were showing to be around 83 to 85% at the custodial. In the E. R., he was requiring 2.5 liters to maintain saturations of 90%. He was also showing significant confusion as well as wheezing and decreased air movement bilaterally with scattered rales. At the custodial he was reported to have a fever up to 102. His x-ray showed findings that were suggestive of chronic obstructive pulmonary disease but no acute infiltrate was detected. Lab studies showed he had a leukocytosis of 11,700 with a left shift. Hemoglobin was 12.3, hematocrit 39.1. Chemistry showed BNP elevated at 300. Troponin was normal at less than 0.02 and electrolytes were within normal limits. Lactic acid was 1. Due to the patient's confusion off oxygen and exacerbation of COPD, he was started on Cefepime and azithromycin with concerns for healthcare acquired pneumonia. He was admitted to the hospital. HOSPITAL COURSE: The patient was treated aggressively with pulmonary hygiene, breathing treatments, Cefepime and azithromycin. He was also given some IV steroids. Over the next day or so, he continued to improve. He had less shortness of breath. He continued to be slightly confused but he was at his baseline. He could answer most simple questions without any problems. His home medications of Spiriva and Breo were restarted as well as his other medications. He was given some Mucinex. His chest x-ray during his stay showed COPD with chronic interstitial lung changes. White count normalized to 10,100 and his differential was within normal limits. H&H was stable at 10.3 and 33.3. Electrolytes continued to be within normal limits except he did have a slightly low calcium at 8.3. He will be discharged to [facility] today in stable condition. It is to be noted that his final sputum culture showed no WBCs, rare gram positive cocci with abundant mixed normal respiratory yanni. DISCHARGE PLAN: The patient will be discharged to [facility] in stable condition. He is to resume his previous activity and diet. His previous medications are to be restarted with the addition of Cefepime 2 grams IV every 12 hours for 6 additional days. He has 1 additional day of treatment of azithromycin. He is to followup with his primary care physician within 2 weeks and return to the hospital for any further problems or complications. DISCHARGE MEDICATIONS: 1. Albuterol. 2. Vitamin C. 3. Spiriva. 4. Polyethylene glycol. 5. Breo ellipta. 6. Citalopram. 7. Artificial Tears. 8. Tylenol. 9. Debrox otic. 10. Folic acid. 11. Ferrous sulfate. 12. Cefepime. 13. Azithromycin. #[id number] [facility]
== END 2018-11-22 14:00 | DRG 190 ==
LOC: ER 09:52 → MS 13:14
PROVIDERS: ADMIT Nurse Practitioner Family; ATTEND Nurse Practitioner Family
DX: J44.1 Chronic obstructive pulmonary disease with (acute) exacerbation (principal); J18.9 Pneumonia, unspecified organism; G93.1 Anoxic brain damage, not elsewhere classified; J44.0 Chronic obstructive pulmonary disease with (acute) lower respiratory infection; Y95 Nosocomial condition; I69.398 Other sequelae of cerebral infarction; H54.62 Unqualified visual loss, left eye, normal vision right eye; F03.90 Unspecified dementia, unspecified severity, without behavioral disturbance, psychotic disturbance, mood disturbance, and anxiety; F32.9 Major depressive disorder, single episode, unspecified; F17.210 Nicotine dependence, cigarettes, uncomplicated; B35.1 Tinea unguium; Z88.5 Allergy status to narcotic agent

== ENCOUNTER → 2018-12-24 | Outpatient (CLI) | payer MEDICARE, OTHER ==
--- NOTE | 2018-12-24 17:39 | CT ---
Procedure: CT LUNG SCREENING Exam Date: 12/24/2018. Ordering Provider: Jose Barajas Clinical Indication: HISTORY OF TOBACCO DEPENDENCY This patient meets eligibility criteria for low-dose CT lung cancer screening. Comparison: Low-dose CT lung cancer screening examination 08/22/2018. Technique: Using a multislice scanner, sequential helical axial imaging was obtained in the thorax, 2.5 mm thickness, 2.5 mm separation, from the level of the thoracic inlet through the lung bases without IV contrast. A low dose protocol was utilized: CTDI: 1.76 mGy. 120. kVp. 45 mA. DLP 65.6 mGy centimeters. 2D sagittal and coronal reconstructed images, 6.0 mm thickness, were obtained. This exam was performed according to our departmental dose optimization program which includes use of automated exposure control, adjustment of the mA and/or kV according to patient size and/or use of iterative reconstruction technique. Nodule measurements under 10 mm are given as mean value of 3 axes diameters. FINDINGS: Lungs and large airways: Again noted is a semisolid lesion in the posterior right lung apex with close approximation to the posterior pleura, more dense than the pleura, and extending inferiorly with areas of air density. Approximate dimensions of the solid portion are 1.6 x 0.8 cm, stable since the prior study, and again no contralateral density of similar size in the left apex. Stable dense tissue abutting the medial left lung apex measuring 10 x 6 mm.. 6 mm solid nodule abutting the pleura or pleural-based nodule, abutting the anterior lateral right upper lobe and associated with pleural thickening is stable on axial image 32. [place] 4 mm nodule posterior medial left upper lobe below the apex with extension to posterior medial pleura, axial images 16-20 is stable. Bilateral centrilobular emphysematous blebs again noted. Pleura and space: Bilateral focal areas of pleural thickening mostly upper lobes is stable. Mediastinum and madiha: evaluation limited by low dose technique and lack of IV contrast. Right pretracheal node above the level of the aortic arch short axis is 1.2 cm. AP window and azygous node, and right hilar short axis diameters stable. No new soft tissue masses. Heart and great vessels: Evaluation limited by low-dose technique and lack of IV contrast. Atherosclerotic calcifications are seen on the prior study. Chest wall, lower neck, axillae: Evaluation also limited by same factors as described above. Lymph nodes described on the prior report at the base of the neck and axilla stable. Upper abdomen: No free air or fluid in the included peritoneal space. No fatty stranding. Question of small fatty hernias bilateral posterior hemidiaphragms stable. Osseous structures: Evaluation limited by low dose MIP technique. Stable bony changes seen on the prior study. IMPRESSION: Stable pleural-based nodules in the bilateral upper lobes. Stable emphysematous changes. No new abnormal nodule. No focal infiltrate. [facility] Best Practice recommendations:. Please see below for Lung RADS category and FOLLOW-UP.* *Lung RADS category Category 3 - Probably benign (1-2% malignancy probability), short term follow-up suggested. Nodules: Solid nodule(s) 6mm to less than 8mm at baseline, or new 4mm to under 6mm solid nodule. Part solid nodule total diameter 6mm to less than 8mm with solid component less than 6mm, or new less than 6mm total diameter nodule] [ground glass nodule(s) 20mm or greater. Follow-up: Please return for a Low Dose Chest CT in 6 months for re-evaluation. Electronically signed by: Erick Harman MD 12/24/2018 5:36 PM [facility]
== END ==
LOC: CT 11-20 13:59
PROVIDERS: ATTEND Family Medicine
DX: Z87.891 Personal history of nicotine dependence (principal); R91.8 Other nonspecific abnormal finding of lung field

== ENCOUNTER 2019-04-05 16:16 | Inpatient (IN) | payer MEDICARE, OTHER ==
[2019-04-05] MEDS ORDERED: IPRATROPIUM/ALBUTEROL 3 ML VIAL NEB ONE (16:33)
--- NOTE | 2019-04-05 17:14 | RAD ---
EXAM DESCRIPTION: Chest,1 View CLINICAL HISTORY: 68 years Male sob, wheezing COMPARISON: None TECHNIQUE: AP view of the chest was obtained. FINDINGS: Cardiac size is within normal limits. Central vessels are not increased. No infiltrates or effusions seen. No consolidation. No pneumothorax. IMPRESSION: No active disease. Electronically signed by: Swetha Sharp MD 04/05/2019 5:12 PM CDT
[2019-04-05] MEDS ORDERED: predniSONE 20 MG TAB PO ONE (17:23)
[2019-04-05] MEDS ORDERED: levoFLOXacin 500 MG TAB PO ONE (17:23)
[2019-04-05] MEDS ORDERED: ACETAMINOPHEN-CAFF-BUTALBITAL 1 EA TAB PO ONE (17:23)
--- NOTE | 2019-04-05 17:56 | ED.PDOC ---
History of Present Illness - General Chief Complaint: Respiratory Problem Stated Complaint: SOB x 2 hours Time Seen by Provider: 04/05/19 16:27 Source: patient Exam Limitations: no limitations - History of Present Illness Initial Comments: the patient's 68-year-old male presenting to the emergency room secondary to what appears to be a COPD exacerbation. The patient lives at home at this time. He does have some chronic deficits from his previous stroke primarily some left-sided weakness and eye difficulties. He also has some mild chronic dysarthria. The patient does have known COPD and has been oxygen dependent in the past however over the last 6 months he has not been on oxygen. He does have very thickened nails which makes a pulse oximetry unreliable. He does feel much better on 2 L of oxygen as far as ease of breathing. He does have wheezes and rhonchi that can be heard across the room. He has markedly increased work of breathing and decreased air movement. He does have a tripod position upon arrival. He does not know if he had a fever but he has had increased sputum production. Timing/Duration: other - 2 days Severity: moderate Improving Factors: nothing Worsening Factors: movement Associated Symptoms: malaise, shortness of breath, weakness Allergies/Adverse Reactions: Allergies Alprazolam Allergy (Verified 06/01/18 19:51) Hydromorphone [From Dilaudid] Allergy (Verified 06/01/18 19:51) Home Medications: Ambulatory Orders Albuterol Sulfate Nebs [Proventil Nebs] 2.5 mg NEB Q4H PRN #120 vial 06/04/18 Fluticasone Furoate-Vilanterol [Breo Ellipta 100-25 Mcg/INH] 1 inh IN QA 11/19/18 Tiotropium Rosebud Monohydrate [Spiriva Respimat] 2.5 mcg IN QA 11/19/18 Review of Systems - Review of Systems Constitutional: States: malaise, weakness EENTM: States: no symptoms reported Respiratory: States: cough, short of breath, wheezing Cardiology: States: no symptoms reported Gastrointestinal/Abdominal: States: no symptoms reported Genitourinary: States: no symptoms reported Musculoskeletal: States: back pain - chronic Skin: States: no symptoms reported Neurological: States: see HPI - hronic All other Systems: No Change from Baseline Past Medical History (General) - Patient Medical History Hx Seizures: No Hx Stroke: Yes Hx Asthma: Yes Hx of COPD: Yes Hx Cardiac Disorders: No Hx Congestive Heart Failure: No Hx Pacemaker: No Hx Hypertension: No Hx Thyroid Disease: No Hx Diabetes: No Hx Gastroesophageal Reflux: No Hx Renal Disease: No Hx Cancer: No Hx of HIV: No Hx Hepatitis C: No Hx MRSA: No Surgical History: other - Vaccination History Hx Tetanus, Diphtheria Vaccination: No Hx Influenza Vaccination: Yes Hx Pneumococcal Vaccination: Yes - Social History Hx Tobacco Use: Yes Hx Alcohol Use: Yes Hx Substance Use: No Hx Substance Use Treatment: No Hx Depression: No Hx Physical Abuse: No Hx Emotional Abuse: No - Female History Patient is a Female of Child Bearing Age (10 -59 yrs old): No Patient : No Family Medical History - Family History Mother Family History: Unknown Living Status: Unknown Physical Exam - Physical Exam General Appearance: Alert, Frail, Obvious distress, Ill Appearing Eye Exam: right normal, left other - chronic changes. He wears a patch. Ears, Nose, Throat: hearing grossly normal, other - poor dentition. speech is somewhat dysarthric but that is a chronic finding Neck: full range of motion, supple Respiratory: respiratory distress, decreased breath sounds, accessory muscle use, crackles, rales, rhonchi, wheezing Cardiovascular/Chest: normal peripheral pulses, no edema, tachycardia Peripheral Pulses: radial,right: 2+, radial,left: 2+ Gastrointestinal/Abdominal: non tender - he is very thin, soft Rectal Exam: deferred Back Exam: no CVA tenderness, no vertebral tenderness Extremity: non-tender, normal inspection, no pedal edema, normal capillary refill Neurologic: alert, normal mood/affect, oriented x 3, other - hronic neurological changes related to his stroke. Skin Exam: normal color Comments: Vital Signs - 24 hr 04/05/19 04/05/19 04/05/19 16:34 16:41 16:56 Temperature 98.9 F Pulse Rate 95 H Pulse Rate [R 97 H ear] Respiratory 28 H 28 H 20 Rate Blood Pressure 154/74 [Left Arm] O2 Sat by Pulse 91 L 91 L Oximetry Progress - Progress Progress: 04/05/19 18:02 the patient is a 68-year-old male presenting with what appears to be a significant COPD exacerbation. The patient has been started on antibiotics and steroids. He is receiving breathing treatments. These will need to be continued frequently overnight at least. He is symptomatically improved with supplemental oxygen at this point so we will continue it. He is a CO2 retainer, though essentially compensated at this point, so we certainly do not want to over oxygenate the patient and suppress his respiratory drive. Blood culture has been performed. Admit for treatment and monitoring overnight. the patient is certainly very frail given his past medical history. There is a high probability of deterioration if sent home. Family and patient are in agreement with the plan. - Results/Orders Results/Orders: 04/05/19 16:58 BLOOD CULTURE Stat chest x-ray shows no lobar pneumonia. There are changes of COPD. Laboratory Results - last 24 hr 04/05/19 04/05/19 04/05/19 16:34 16:58 16:58 WBC 9.6 RBC 4.89 Hgb 10.0 L Hct 34.7 L MCV 70.8 L MCH 20.5 L MCHC 28.9 L RDW 19.9 H Plt Count 216 MPV 8.9 Absolute Neuts (auto) 6.20 Absolute Lymphs (auto) 1.40 Absolute Monos (auto) 1.10 H Absolute Eos (auto) 0.80 H Absolute Basos (auto) 0.10 Neutrophils % 64.6 Lymphocytes % 15.0 L Monocytes % 11.1 H Eosinophils % 7.9 H Basophils % 1.4 Normal RBC Morphology Stain quality accept pCO2 60 H pO2 170 H* HCO3 31.2 ABG pH 7.330 L ABG O2 Saturation 100.4 H ABG Base Excess 4.8 ABG Deoxyhemoglobin -0.3 L Oxyhemoglobin % 94.9 Carboxyhemoglobin % 3.0 H Methemoglobin % Sat 2.4 H Calc Total Hemoglobin 9.2 L Sodium 136 Potassium 4.7 Chloride 99 L Carbon Dioxide 29 Anion Gap 12.7 BUN 14 Creatinine 0.84 BUN/Creatinine Ratio 16.7 Random Glucose 125 H Serum Osmolality 273.9 L Calcium 8.7 Total Bilirubin 0.5 AST 18 ALT 10 Alkaline Phosphatase 85 Creatine Kinase 57 CK-MB (CK-2) 2.6 CK-MB (CK-2) % Not Reportable Troponin I < 0.02 B-Natriuretic Peptide 167.0 H Serum Total Protein 7.7 Albumin 3.8 Globulin 3.9 H Albumin/Globulin Ratio 1.0 L Departure - Departure Clinical Impression: Acute bronchitis with COPD Disposition: Admit Patient Departure Forms: ED Discharge - Pt. Copy, Patient Portal Self Enrollment Referrals: Lee Johnson MD [Primary Care Provider] - 1-2 Weeks Home Medications: Ambulatory Orders Albuterol Sulfate Nebs [Proventil Nebs] 2.5 mg NEB Q4H PRN #120 vial 06/04/18 Fluticasone Furoate-Vilanterol [Breo Ellipta 100-25 Mcg/INH] 1 inh IN QA 11/19/18 Tiotropium Rosebud Monohydrate [Spiriva Respimat] 2.5 mcg IN QA 11/19/18 Decision To Admit - Decistion To Admit Decision to Admit Reason: Medical Nature Decision to Admit Date: 04/05/19 Decision to Admit Time: 18:04
[2019-04-05] MEDS ORDERED: cefTRIAXone SODIUM 1 GM VIAL IM ONE (17:58)
[2019-04-05] MEDS ORDERED: methylPREDNISolone SODIUM SUC 40 MG/ML VIAL IV ONE (17:58)
[2019-04-05] MEDS ORDERED: AZITHROMYCIN IV 500 MG in SODIUM CHLORIDE 0.9% 250ML 250 ML IVPB ONE (17:58)
--- NOTE | 2019-04-05 18:22 | HP ---
SUPERVISING PHYSICIAN: Jalil Ontiveros MD CHIEF COMPLAINT: Shortness of breath. HISTORY OF PRESENT ILLNESS: This is a 68 year-old male patient who came to the Emergency Room at approximately 4:30 with shortness of breath the last two hours prior to arrival. He does have some chronic deficits from a previous stroke which includes some left-sided weakness and difficulty with his vision in his left eye, otherwise was without any problems. Apparently, he has a significant history for chronic obstructive pulmonary disease and he continues to smoke, however, he states he is not going to smoke anymore after today. In the Emergency Room, he was evaluated with a chest x-ray and labs. It did not appear he had pneumonia but, in fact, does have chronic obstructive pulmonary disease exacerbation. His arterial blood gases showed C02 retention which is clinically compensated which is consistent with chronic respiratory failure. He was given nebulizers and steroids in the Emergency Room is subsequently improved but still has some dyspnea. Therefore, he was referred for admission. The patient is alert and oriented. PAST MEDICAL HISTORY: 1. Chronic obstructive pulmonary disease. 2. Previous stroke after an AV malformation repair. 3. Dementia with depression. PAST SURGICAL HISTORY: 1. Cataract removal. 2. 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 CURRENT MEDICATIONS: Please see the electronic record once the medications are verified. ALLERGIES: Alprazolam and hydromorphone. FAMILY HISTORY: Chronic obstructive pulmonary disease and alcoholism. SOCIAL HISTORY: The patient is a smoker. He has cut down over the years. He cannot remember how long he has been smoking. No alcohol currently but he used to drink pretty heavily. 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 He is , has three children. REVIEW OF SYSTEMS: CONSTITUTIONAL: No fever, no chills, no recent weight loss or weight gain. . HEENT: He has vision problems in the left eye but the right eye is okay but that is chronic. No nasal drainage, no sore throat.. RESPIRATORY: Positive for cough, no hemoptysis, no pleuritic for shortness of breath and wheezing. CARDIOVASCULAR: No chest pain, palpitations, peripheral edema. GASTROINTESTINAL: No nausea, vomiting, diarrhea, constipation or abdominal pains. GENITOURINARY: No dysuria, hematuria, or flank pain. . NEUROLOGIC: Negative for syncope, seizures or paresthesias. HEMATOLOGIC: No easy bruising or transfusion reaction. ENDOCRINE: No polydipsia, polyuria or heat or cold intolerance. SKIN: No rashes, lesions or wounds. PHYSICAL EXAMINATION: VITAL SIGNS: Blood pressure 122/68, heart rate 93, respiratory rate 24, temperature 98.2, oxygen saturation 93% on room air. GENERAL: The patient is a 68 year-old male patient who is in mild to moderate respiratory distress at this time. NEUROLOGICAL: The patient is alert and oriented.. CHEST: Lungs with diffuse wheezing on expiration bilaterally. No rhonchi. CARDIOVASCULAR: Regular rate and rhythm, normal S1, S2. ABDOMEN: Soft, positive bowel sounds. No tenderness to palpation. : Deferred. EXTREMITIES: Lower extremities with no significant edema. 2+ pulses, capillary refill less than 2 seconds. LABORATORY: White count 9.6, hemoglobin 10.0, hematocrit 34.7, platelet count 216,000. There is no left shift. Arterial blood gases showed pH of 7.33, PCo2 of 60, P02 of 170, bicarb 31.2, base excess of 4.8 with 02 saturation of 100% on nasal cannula. Chemistries: sodium 136, potassium 4.7, chloride 99, C02 of 29, BUN 14, creatinine 0.84, glucose 125, calcium 8.7, BNP 167. Chest x-ray showed no pulmonary vascular congestion or infiltrates. ASSESSMENT: 1. Chronic obstructive pulmonary disease exacerbation. 2. Previous CVA with residual left-sided weakness. 3. Continuous nicotine dependence. 4. History of dementia with depression. PLAN: At this time, the patient will be admitted to the hospital for chronic obstructive pulmonary disease exacerbation. I will place him on empiric antibiotics as well as scheduled nebulizer therapy and scheduled steroids. Will taper the steroids and transfer to p.o. prednisone once he has improved symptomatically. Utilizing Lovenox for DVT prophylaxis and will start a PPI for GI prophylaxis. Will recheck labs in the morning as well as a chest x-ray to insure that he does not have any development of an infiltrate. I anticipate the patient will be here for approximately 48 hours for stabilizing of chronic obstructive pulmonary disease exacerbation. #[id number] [facility]
[2019-04-05] MEDS ORDERED: SODIUM CHLORIDE 0.9% 250ML 250 ML ONE (18:26)
[2019-04-05] MEDS ORDERED: AZITHROMYCIN IV 500 MG VIAL IVPB ONE (18:26)
[2019-04-05] MEDS ORDERED: cefTRIAXone SODIUM 1 GM in SODIUM CHL 0.9% 50ML MIN-BAG+ 50 ML IVPB ONE (18:48)
[2019-04-05] MEDS ORDERED: SODIUM CHLORIDE 0.9% (FLUSH) 10 ML SYG IV PRN (19:36)
[2019-04-05] MEDS ORDERED: ALBUTEROL SULFATE 2.5 MG/3 ML VIAL NEB PRN (19:36)
[2019-04-05] MEDS: IV SET AND CAP CHANGE INJ INJ SCH (20:00)
[2019-04-05] MEDS ORDERED: ENOXAPARIN SODIUM 40 MG/0.4 ML SYG SUBCU SCH (20:00)
[2019-04-05] MEDS ORDERED: SODIUM CHL 0.9% 50ML MIN-BAG+ 50 ML IVPB ONE (20:49)
[2019-04-05] MEDS ORDERED: cefTRIAXone SODIUM 1 GM VIAL ONE (20:49)
[2019-04-05] MEDS: IPRATROPIUM/ALBUTEROL 3 ML VIAL INH SCH (20:55)
[2019-04-05] MEDS: methylPREDNISolone SODIUM SUC 40 MG/ML VIAL IV SCH (23:23)
[2019-04-06] MEDS: IPRATROPIUM/ALBUTEROL 3 ML VIAL INH SCH ×3 (02:13→08:25)
[2019-04-06] MEDS: methylPREDNISolone SODIUM SUC 40 MG/ML VIAL IV SCH ×3 (06:10→17:31)
[2019-04-06] MEDS: OMEPRAZOLE CAP 20 MG CAP PO SCH (06:11)
--- NOTE | 2019-04-06 06:38 | RAD ---
EXAM: XR Chest, 1 View CLINICAL HISTORY: The patient is 68 years old and is Male; COPD TECHNIQUE: Frontal view of the chest. COMPARISON: Chest radiograph from 04/05/2019 FINDINGS: LUNGS: The lungs are mildly hyperinflated but clear. No consolidation visualized. PLEURAL SPACE: Unremarkable. No pneumothorax. HEART: No significant enlargement of the cardiac silhouette. MEDIASTINUM: Unremarkable. BONES/JOINTS: The bones are unchanged. IMPRESSION: No acute findings visualized in the chest. Electronically signed by: Kaela Sparks MD 04/06/2019 6:36 AM CDT
[2019-04-06] MEDS: IPRATROPIUM/ALBUTEROL 3 ML VIAL NEB SCH ×4 (08:25→20:08)
[2019-04-06] MEDS: ARFORMOTEROL TARTRATE 15 MCG/2 ML NEB NEB SCH ×2 (09:45→20:08)
--- NOTE | 2019-04-06 11:34 | PN ---
DATE: 04/06/19 SUPERVISING PHYSICIAN: Jalil Ontiveros M.D. SUBJECTIVE: He is breathing a little bit better than he was doing when he came in. He is currently on a breathing treatment. He is coughing and has had really nothing productive so far. OBJECTIVE: Blood pressure 116/63, heart rate 95, respiratory rate 14, temperature 97.6, oxygen saturation 93%. GENERAL: Mr. Rashid is a 68 year-old male patient in no active distress currently. NEUROLOGIC: The patient is alert and oriented. LUNGS: With diffuse wheezing on expiration which sounds a little bit better than he did in the E. R. last night. CARDIOVASCULAR: The patient has a regular rate and rhythm. Normal S1 and S2. ABDOMEN: Soft. Positive bowel sounds. EXTREMITIES: Lower extremities with no edema. Chest x-ray shows no active disease at this time. White blood cell count 4.0, hemoglobin 9.3, hematocrit 33.3, platelet count 198. Chemistry shows sodium 138, potassium 5.2, chloride 101, CO2 is 29, BUN 17, creatinine 0.84, glucose 131, calcium 8.5. ASSESSMENT: 1. Chronic obstructive pulmonary disease exacerbation. 2. Previous cerebrovascular accident with residual left sided weakness. 3. Continuous nicotine dependency. 4. History of dementia with depression. PLAN: At this time due to diffuse wheezing, will not reduce his steroids today. I will continue his empiric antibiotics as well. I will repeat his labs tomorrow. Chest x-ray does not need to be repeated due to consecutive x-rays with no infiltrate. As he improves we can taper the steroids, but he is not quite ready for that yet today. #[id number] [facility]
[2019-04-06] MEDS ORDERED: cefTRIAXone SODIUM 1 GM VIAL ONE (17:26)
[2019-04-06] MEDS ORDERED: SODIUM CHL 0.9% 50ML MIN-BAG+ 50 ML IVPB ONE (17:26)
[2019-04-06] MEDS ORDERED: SODIUM CHLORIDE 0.9% 250ML 250 ML ONE (17:26)
[2019-04-06] MEDS ORDERED: AZITHROMYCIN IV 500 MG VIAL IVPB ONE (17:27)
[2019-04-06] MEDS: cefTRIAXone SODIUM 1 GM in SODIUM CHL 0.9% 50ML MIN-BAG+ 50 ML IVPB SCH (17:34)
[2019-04-06] MEDS: AZITHROMYCIN IV 500 MG in SODIUM CHLORIDE 0.9% 250ML 250 ML IVPB SCH (19:00)
[2019-04-06] MEDS: ENOXAPARIN SODIUM 40 MG/0.4 ML SYG SUBCU SCH (20:56)
[2019-04-07] MEDS: methylPREDNISolone SODIUM SUC 40 MG/ML VIAL IV SCH ×3 (00:30→14:36)
[2019-04-07] MEDS: IPRATROPIUM/ALBUTEROL 3 ML VIAL NEB SCH ×6 (00:51→20:31)
[2019-04-07] MEDS: OMEPRAZOLE CAP 20 MG CAP PO SCH (06:04)
[2019-04-07] MEDS ORDERED: TIOTROPIUM INHALER INH SCH (08:00)
[2019-04-07] MEDS: ARFORMOTEROL TARTRATE 15 MCG/2 ML NEB NEB SCH ×2 (08:19→20:31)
--- NOTE | 2019-04-07 17:02 | PN ---
DATE: 04/07/19 SUPERVISING PHYSICIAN: Lee Johnson MD SUBJECTIVE: The patient is still short of breath with any lengthy conversation. We did attempt an ambulation study, however, he was only maintaining 86% on room air sitting at the edge of the bed. We did have a lengthy discussion that he needs home 02. He voiced understanding and does not know if he will be able to afford home 02. OBJECTIVE: VITAL SIGNS: Temperature 97.6, pulse 90, blood pressure 116/63, respirations 18, saturation 85% on room air, 93% on nasal cannula 2-1/2 liters at rest. Weight 58.3 kg. GENERAL: The patient is unkept but appears to be in no acute disease at time of exam. CHEST: Lung sounds continue with diffuse wheezing, more so on expiration and inspiratory effort and diminished throughout. HEART: Regular rate and rhythm. ABDOMEN: Soft, non-tender, positive bowel sounds. EXTREMITIES: Without cyanosis, clubbing, or edema. NEUROLOGIC: He is alert and oriented x3. RADIOLOGY: No additional radiographic studies today. LABORATORY: White count today is up to 13,000, hemoglobin 8.4, hematocrit 30.0. RBC indices indicate a microcytic hyperchromic presentation with a platelet count of 170,000. Differential does show a left shift. Chemistries today show a potassium of 5.2, anion gap 11, BUN 31, creatinine 142. MICROBIOLOGY: Blood cultures remain negative at 24 hours. ASSESSMENT: 1. Acute exacerbation of chronic obstructive pulmonary disease showing slow clinical improvement and requiring ongoing systemic corticosteroids with no current signs of pneumonia. 2. Microcytic anemia with history Iron Deficiency Anemia on iron therapy 2. Leukocytosis probably due to #1 and corticosteroid administration with no current signs of ongoing pneumonia. 3. Previous cerebrovascular accident with residual left sided weakness. 4. Nicotine addiction. . 5. History of dementia with depression. PLAN: Since he is continuing to have some wheezing and desaturates easily after we reduced the steroids yesterday, I am going to increase him to 60 mg Solu-Medrol every 6 hours for 2 doses and reevaluate in the morning. I have also added Pulmicort to his nebulizer treatments. We will repeat a chest x-ray in the morning to insure he is not developing an infiltrate given his white count is elevated but more likely is response to steroids. We will try to taper his steroids off and hopefully discharge tomorrow or Sunday. He is probably going to need 02 at home on discharge. We will need to continue to help arrange for this. At this point, he financially feels like he cannot afford it. Hopefully if he does improve well enough he can be discharged without supplemental oxygen. Until he can transition to outpatient therapy on oral medications, we will continue to monitor and treat as needed. #[id number] [facility]
[2019-04-07] MEDS ORDERED: SODIUM CHL 0.9% 50ML MIN-BAG+ 50 ML IVPB ONE (17:19)
[2019-04-07] MEDS ORDERED: cefTRIAXone SODIUM 1 GM VIAL ONE (17:19)
[2019-04-07] MEDS ORDERED: SODIUM CHLORIDE 0.9% 250ML 250 ML ONE (17:19)
[2019-04-07] MEDS ORDERED: AZITHROMYCIN IV 500 MG VIAL IVPB ONE (17:20)
[2019-04-07] MEDS: cefTRIAXone SODIUM 1 GM in SODIUM CHL 0.9% 50ML MIN-BAG+ 50 ML IVPB SCH (17:30)
[2019-04-07] MEDS: methylPREDNISolone SODIUM SUC 125 MG/2 ML VIAL IV SCH ×2 (17:30→23:28)
[2019-04-07] MEDS: AZITHROMYCIN IV 500 MG in SODIUM CHLORIDE 0.9% 250ML 250 ML IVPB SCH (18:05)
[2019-04-07] MEDS: NON-FORMULARY MEDICATION 1 EA MIS (Fluticasone Furoate-Vilanterol [Breo Ellipta 100-25 Mcg IN SCH ×2 (19:15→19:16)
[2019-04-07] MEDS: BUDESONIDE NEBS 0.5 MG/2 ML INH NEB SCH (20:31)
[2019-04-07] MEDS: ENOXAPARIN SODIUM 40 MG/0.4 ML SYG SUBCU SCH (21:15)
[2019-04-08] MEDS: IPRATROPIUM/ALBUTEROL 3 ML VIAL NEB SCH ×6 (00:05→20:48)
[2019-04-08] MEDS ORDERED: ACETAMINOPHEN 325 MG TAB PO PRN (02:39)
[2019-04-08] MEDS: OMEPRAZOLE CAP 20 MG CAP PO SCH (06:08)
[2019-04-08] MEDS ORDERED: ACETAMINOPHEN 325 MG TAB PO ONE (07:34)
[2019-04-08] MEDS ORDERED: diphenhydrAMINE HCL 50 MG/ML VIAL IV ONE (07:34)
[2019-04-08] MEDS ORDERED: SODIUM CHLORIDE 0.9% 500ML 500 ML IVS SCH (08:00)
[2019-04-08] MEDS ORDERED: TIOTROPIUM INHALER INH SCH (08:00)
[2019-04-08] MEDS: ARFORMOTEROL TARTRATE 15 MCG/2 ML NEB NEB SCH ×2 (08:30→20:48)
[2019-04-08] MEDS: BUDESONIDE NEBS 0.5 MG/2 ML INH NEB SCH ×2 (08:30→20:48)
[2019-04-08] MEDS: TIOTROPIUM INHALER INH SCH (13:00)
[2019-04-08] MEDS ORDERED: SODIUM CHLORIDE 0.9% 250ML 250 ML ONE (18:18)
[2019-04-08] MEDS ORDERED: SODIUM CHL 0.9% 50ML MIN-BAG+ 50 ML IVPB ONE (18:19)
[2019-04-08] MEDS ORDERED: AZITHROMYCIN IV 500 MG VIAL IVPB ONE (18:19)
[2019-04-08] MEDS ORDERED: cefTRIAXone SODIUM 1 GM VIAL ONE (18:19)
[2019-04-08] MEDS: cefTRIAXone SODIUM 1 GM in SODIUM CHL 0.9% 50ML MIN-BAG+ 50 ML IVPB SCH (18:21)
[2019-04-08] MEDS: AZITHROMYCIN IV 500 MG in SODIUM CHLORIDE 0.9% 250ML 250 ML IVPB SCH (18:57)
--- NOTE | 2019-04-08 20:59 | PN ---
DATE: 04/08/19 SUPERVISING PHYSICIAN: Lee Johnson M.D. SUBJECTIVE: The patient still remains short of breath but he is anemic as noted with his labs this morning, therefore he is going to get 2 units of packed RBCs. He has been afebrile overnight. He is still with the ongoing discussion of his need for oxygen at home. Archana is currently working on the situation to secure the need if possible. OBJECTIVE: VITAL SIGNS: Temperature 98.1, pulse 99, blood pressure 130/66, respirations 18, satting 96% on 2.5 liters nasal cannula. Weight is 60.1 kg. GENERAL: The patient appears to be in no acute distress. He is unkempt, disheveled but alert. CHEST: Lung sounds are slightly improved today, just diminished towards the bases. No obvious wheezing. HEART: Regular rate and rhythm. ABDOMEN: Soft, non-tender. Positive bowel sounds. EXTREMITIES: Without any clubbing, cyanosis or edema. NEUROLOGIC: He is alert and oriented times three. No additional radiographic studies were completed today. LABORATORY: H&H has dropped to 7.8 and 28.0 overnight with a white count staying the same at 13,000. Differential is showing a continued left shift. RBC indices indicate a microcytic anemia. Chemistries show normal electrolytes with BUN 36, creatinine 1.05, calcium 8.3, magnesium 2.2. MICROBIOLOGY: Blood cultures remain negative at 3 days. ASSESSMENT: 1. Acute exacerbation of chronic obstructive pulmonary disease requiring aggressive corticosteroid management. No current signs of pneumonia and showing some improvement clinically today. 2. Microcytic anemia with history Iron Deficiency Anemia on iron therapy showing a hemoglobin of 7.8 requiring transfusion of 2 units of packed RBCs. 3. 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 4. History of dementia with depression. 5. History of chronic nicotine addiction. PLAN: I am going to go ahead and transfuse 2 units of packed RBCs today his current hemoglobin. Hopefully this will improve his oxygenation and maybe not result in a need for home O2. He will need a home O2 study again in the morning. Again he is refusing to pay for his oxygen, but I have reinforced to him again that he more likely will need it. I did increase his steroids yesterday to 60 every 6 hours for 2 doses and he is now transitioned to p.o. prednisone. He remains on azithromycin and Rocephin. Hopefully be able to discharge tomorrow. At this point there is no clinical evidence of acute loss resulting in his hemoglobin change and he has not apparently been taking his iron therapy. I talked to Dr. Johnson. Will resume iron on discharge and again recheck his H&H tomorrow. Should he show improvement, more likely he will be able to discharge to continue with outpatient management. Until then will continue to monitor and treat as needed. #[id number] [facility]
[2019-04-08] MEDS: ENOXAPARIN SODIUM 40 MG/0.4 ML SYG SUBCU SCH (21:03)
[2019-04-08] MEDS: IV SET AND CAP CHANGE INJ INJ SCH (21:06)
[2019-04-09] MEDS: IPRATROPIUM/ALBUTEROL 3 ML VIAL NEB SCH ×6 (02:07→20:01)
[2019-04-09] MEDS: OMEPRAZOLE CAP 20 MG CAP PO SCH (06:12)
--- NOTE | 2019-04-09 07:30 | RAD ---
EXAM DESCRIPTION: Chest,2 Views CLINICAL HISTORY: 68 years Male copd COMPARISON: Portable chest dated 04/06/2019 TECHNIQUE: PA and lateral views of the chest are obtained. Heart: The heart is normal in size and configuration. Vasculature: []There is no evidence of aortic aneurysm or acute findings. The pulmonary vascularity is normal. Mediastinum: Unremarkable otherwise. No evidence of mass or adenopathy. Lungs: Lungs are hyperinflated and hyperlucent indicating centrilobular emphysema. There is diffuse interstitial prominence There is mild peribronchial thickening. There is no focal consolidation in the lungs. Pleural spaces: There is blunting of the bilateral costophrenic angles suggesting very small pleural effusions. There are no pneumothoraces. Osseous structures: There is no evidence of acute fracture, osseous destruction or osteoblastic lesions. Degenerative changes are present in the spine and shoulders. Tubes and catheters: None Upper abdomen: No acute findings. Chest wall: Unremarkable. IMPRESSION: Centrilobular emphysema. Nonspecific interstitial prominence may be acute or chronic as from interstitial edema or an acute lower respiratory tract viral illness versus fibrosis. There is no evidence of acute consolidative pneumonia. Minimal pleural effusions in the setting of centrilobular emphysema can indicate cardiac insufficiency. Electronically signed by: Jailene Samaniego MD 04/09/2019 7:29 AM CDT
[2019-04-09] MEDS ORDERED: (Fluticasone Furoate-Vilanterol [Breo Ellipta 100-25 Mcg IN SCH (08:00)
[2019-04-09] MEDS: predniSONE 20 MG TAB PO SCH (08:22)
[2019-04-09] MEDS: TIOTROPIUM INHALER INH SCH (08:22)
[2019-04-09] MEDS: ARFORMOTEROL TARTRATE 15 MCG/2 ML NEB NEB SCH ×2 (08:22→20:00)
[2019-04-09] MEDS: FERROUS GLUCONATE 325 MG TAB PO SCH ×2 (08:22→18:03)
[2019-04-09] MEDS: BUDESONIDE NEBS 0.5 MG/2 ML INH NEB SCH ×2 (08:22→20:00)
--- NOTE | 2019-04-09 12:01 | PN ---
SUPERVISING PHYSICIAN: Lee Johnson MD DATE: 04/09/19 SUBJECTIVE: The patient is lying in bed. He says he is very weak and short of breath. Earlier, he had refused to pay for his home oxygen, but after discussing the importance of having oxygen as well as possible readmission without his O2, he decided he would pay for it. He also said he continues to feel weak, but feels like it may be slightly improving. OBJECTIVE: VITAL SIGNS: Temperature 99. Heart rate 93. Blood pressure 138/71. Respiratory rate 20. O2 saturation 90% on 2.5 liters nasal cannula. RESPIRATORY: Diminished breath sounds throughout. He is slightly tachypneic at times, especially when speaking. CARDIAC: Regular rate and rhythm. GASTROINTESTINAL: Abdomen is soft, nondistended, nontender. Bowel sounds are positive. NEUROLOGIC: Awake, alert and oriented times three. LABORATORY: Hemoglobin 10.4, hematocrit 36. Electrolytes are basically within normal limits with the exception of calcium slightly low at 8.1. Preliminary blood cultures show no growth after 3 days. Chest x-ray shows central lobular emphysema, nonspecific interstitial prominence, may be acute or chronic, as from interstitial edema or acute lower respiratory tract viral illness versus fibrosis. There is no evidence of acute consolidative pneumonia. Minimal pleural effusions in the setting of central lobular emphysema can indicate cardiac insufficiency. All other labs and films have been reviewed via the EMR. ASSESSMENT: 1. Acute exacerbation of chronic obstructive pulmonary disease requiring aggressive corticosteroid management. No current signs of pneumonia and showing some improvement clinically. 2. Microcytic anemia with history iron deficiency anemia on iron therapy showing a hemoglobin of 7.8 requiring transfusion of 2 units of packed RBCs. 3. 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 4. History of dementia with depression. 5. History of chronic nicotine addiction. PLAN: We will continue present supportive care. I will recheck his hemoglobin and hematocrit in the morning. Otherwise, his other labs are stable. I have ordered his home oxygen and hopefully that can be set up this afternoon or in the morning as he has agreed to pay the monthly fee at [facility] which is $30 a month. He already has a followup with Dr. Johnson. We will continue to monitor his cultures and follow him closely as needed. #[id number] [facility]
[2019-04-09] MEDS ORDERED: cefTRIAXone SODIUM 1 GM VIAL ONE (17:57)
[2019-04-09] MEDS ORDERED: SODIUM CHL 0.9% 50ML MIN-BAG+ 50 ML IVPB ONE (17:57)
[2019-04-09] MEDS ORDERED: SODIUM CHLORIDE 0.9% 250ML 250 ML ONE (17:58)
[2019-04-09] MEDS ORDERED: AZITHROMYCIN IV 500 MG VIAL IVPB ONE (17:58)
[2019-04-09] MEDS: cefTRIAXone SODIUM 1 GM in SODIUM CHL 0.9% 50ML MIN-BAG+ 50 ML IVPB SCH (18:03)
[2019-04-09] MEDS: AZITHROMYCIN IV 500 MG in SODIUM CHLORIDE 0.9% 250ML 250 ML IVPB SCH (18:38)
[2019-04-09] MEDS: ENOXAPARIN SODIUM 40 MG/0.4 ML SYG SUBCU SCH (20:43)
[2019-04-10] MEDS: IPRATROPIUM/ALBUTEROL 3 ML VIAL NEB SCH ×3 (00:02→08:52)
[2019-04-10] MEDS: OMEPRAZOLE CAP 20 MG CAP PO SCH (06:07)
[2019-04-10] MEDS ORDERED: (Fluticasone Furoate-Vilanterol [Breo Ellipta 100-25 Mcg INH SCH (08:00)
[2019-04-10] MEDS: FERROUS GLUCONATE 325 MG TAB PO SCH (08:14)
[2019-04-10] MEDS: predniSONE 20 MG TAB PO SCH (08:14)
[2019-04-10] MEDS: TIOTROPIUM INHALER INH SCH (08:52)
[2019-04-10] MEDS: BUDESONIDE NEBS 0.5 MG/2 ML INH NEB SCH (08:52)
[2019-04-10] MEDS: ARFORMOTEROL TARTRATE 15 MCG/2 ML NEB NEB SCH (08:52)
[2019-04-10 10:12] VITALS: BP 138/71; TEMP 98.7; O2SAT 91
--- NOTE | 2019-04-10 11:53 | DS ---
SUPERVISING PHYSICIAN: Lee Johnson MD DISCHARGE DIAGNOSIS: 1. Acute exacerbation of chronic obstructive pulmonary disease requiring aggressive corticosteroid management. No current signs of pneumonia and showing some improvement clinically. 2. Microcytic anemia with history iron deficiency anemia on iron therapy showing a hemoglobin of 7.8 requiring transfusion of 2 units of packed red blood cells. 3. 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 4. History of dementia with depression. 5. History of chronic nicotine addiction. HISTORY OF PRESENT ILLNESS: This is a 68-year-old male patient who presented to the Emergency Room on the date of admission with shortness of breath that started approximately two hours prior to arrival. He does have some chronic deficits from a previous stroke which include some left-sided weakness and difficulty with his vision in his left eye, otherwise was without any problems. He also has a significant history of chronic obstructive pulmonary disease, although he continues to smoke. He did say he was going to quit smoking. Chest x-ray and labs were done in the Emergency Room. His initial vital signs showed temperature 98.9, heart rate 97, blood pressure 165/74. He was tachypneic with a respiratory rate of 28. His O2 saturations were 91% on 4 liters of oxygen per nasal cannula. Lab was done and his WBCs were 9.6 with hemoglobin of 10, hematocrit 34.7. Blood gas showed CO2 60, but with supplemental oxygen, his pO2 was 170. His pH was 7.33. His bicarb was 31.2. Sodium 36, potassium 4.7, chloride 99, carbon dioxide 29, BUN 14, creatinine 0.84, glucose 125. BNP 167. Chest x-ray showed no active disease. He was given multiple nebulizers treatments as well as steroids in the Emergency Room and was referred for admission at that time. The patient was admitted to the Medical/Surgical Floor in stable condition. HOSPITAL COURSE: The patient was given Rocephin and azithromycin. He also was put on an IV steroid taper. He was given Lovenox for DVT prophylaxis as well as proton pump inhibitor for GI prophylaxis. His home medications were restarted. As he improved, his Solu-Medrol was discontinued and he was placed on a p.o. prednisone taper. He continued with good pulmonary hygiene. He slowly improved. An ambulation study was done for O2 qualification which he met the home oxygen qualifications. Initially, the patient refused to pay for his home O2. It was discussed that he desaturates very easily and that it would be difficult for him to do well if he went home without his oxygen. At this point, he has been tapered to oral steroid therapy. He has agreed to pay for oxygen at home, which is approximately $30 a month. He will be discharged home today in stable condition. LABORATORY: Sodium remained stable between 136 and 141 during his stay. Potassium did get as 5.2 and today is 4. Chloride was low on admission at 99 and today is 106. BUN did get as high as 36, but today is 29. Creatinine remained stable during his stay. It did get as high as 1.05, today it is 0.74. Glucose ran between 117 and 142. Magnesium was 2.2. Liver function tests were within normal limits. MICROBIOLOGY: Preliminary blood cultures showed no growth after 4 days. Flu swab for influenza A and B by PCR were both negative. RADIOLOGY: X-rays remained stable throughout his stay. His last chest x-ray showed central lobular emphysema, nonspecific interstitial prominence, may be acute or chronic as from interstitial edema or an acute lower respiratory tract viral illness versus fibrosis. There is no evidence of acute consolidative pneumonia. Minimal pleural effusions in the setting of central lobular emphysema can indicate insufficiency. DISCHARGE PLAN: The patient will be discharged home in stable condition. He will now have home oxygen and has agreed to pay for that. He has refused home health, but primary care referral was initiated here in the hospital to assist with his activities of daily living. He will continue with his previous home medications. He received 4 doses of Zithromax 500 mg IV as well as 4 doses of Rocephin IV here in the hospital. I have discharged him on his previous medications as well as 7 days of Keflex and a prednisone taper. He was worried about the cost and the cost at [facility] should be less than $16. He has a followup with his primary care physician, Dr. Johnson on 04/16/19 at 3 PM. He was instructed to return to the hospital or call Dr. Johnson's office for any problems or complications. DISCHARGE MEDICATIONS: 1. Albuterol nebulizers. 2. Spiriva. 3. Breo Ellipta. 4. Cephalexin. 5. Prednisone taper. #[id number] [facility]
== END 2019-04-10 12:29 | disposition home or self-care (01) | DRG 191 ==
LOC: ER 16:16 → MS 18:20
PROVIDERS: ADMIT Nurse Practitioner; ATTEND Family Medicine
PROC: 30233N1 Transfusion of Nonautologous Red Blood Cells into Peripheral Vein, Percutaneous Approach (ICD-10-PCS; principal; 2019-04-08)
DX: J44.1 Chronic obstructive pulmonary disease with (acute) exacerbation (principal); I69.354 Hemiplegia and hemiparesis following cerebral infarction affecting left non-dominant side; J96.12 Chronic respiratory failure with hypercapnia; D50.9 Iron deficiency anemia, unspecified; F03.90 Unspecified dementia, unspecified severity, without behavioral disturbance, psychotic disturbance, mood disturbance, and anxiety; F32.9 Major depressive disorder, single episode, unspecified; F17.210 Nicotine dependence, cigarettes, uncomplicated; Z88.8 Allergy status to other drugs, medicaments and biological substances; Z88.5 Allergy status to narcotic agent; J44.0 Chronic obstructive pulmonary disease with (acute) lower respiratory infection; J20.9 Acute bronchitis, unspecified

== ENCOUNTER 2019-07-06 14:57 | Emergency (ER) | payer MEDICARE ==
[2019-07-06] MEDS ORDERED: IPRATROPIUM/ALBUTEROL 3 ML VIAL INH ONE (15:07)
[2019-07-06] MEDS ORDERED: levoFLOXacin 500MG IV 500 MG in PREMIX BAG 1 BAG IVPB ONE (15:07)
[2019-07-06] MEDS ORDERED: SODIUM CHLORIDE 0.9% (FLUSH) 10 ML SYG IV PRN (15:07)
[2019-07-06] MEDS ORDERED: methylPREDNISolone SODIUM SUC 125 MG/2 ML VIAL IV ONE (15:09)
--- NOTE | 2019-07-06 15:12 | ED.PDOC ---
History of Present Illness - General Time Seen by Provider: 07/06/19 15:07 - History of Present Illness Initial Comments: 69 y/o male with h/o COPD on home O2 is here with severe sob since 1 day : getting worse now associated with wheezes , no cough or fever Allergies/Adverse Reactions: Allergies Alprazolam Allergy (Verified 04/08/19 21:19) Unknown Hydromorphone [From Dilaudid] Allergy (Verified 04/08/19 21:19) Unknown Home Medications: Ambulatory Orders Albuterol Sulfate Nebs [Proventil Nebs] 2.5 mg NEB Q4H PRN #120 vial 06/04/18 Fluticasone Furoate-Vilanterol [Breo Ellipta] 1 inh IN DAILY 07/06/19 Prednisone 50 mg PO DAILY 7 Days #7 tab 07/06/19 Review of Systems - Review of Systems Constitutional: States: see HPI, weakness EENTM: States: no symptoms reported Respiratory: States: see HPI Cardiology: States: no symptoms reported Gastrointestinal/Abdominal: States: no symptoms reported Genitourinary: States: no symptoms reported Musculoskeletal: States: no symptoms reported Skin: States: no symptoms reported Neurological: States: no symptoms reported Endocrine: States: no symptoms reported Hematologic/Lymphatic: States: no symptoms reported All other Systems: Reviewed and Negative Past Medical History (General) - Patient Medical History Hx Seizures: No Hx Stroke: No Hx Asthma: Yes Hx of COPD: Yes Hx Cardiac Disorders: No Hx Congestive Heart Failure: No Hx Pacemaker: No Hx Hypertension: No Hx Thyroid Disease: No Hx Diabetes: No Hx Gastroesophageal Reflux: No Hx Renal Disease: No Hx Cancer: No Hx of HIV: No Hx Hepatitis C: No Hx MRSA: No - Vaccination History Hx Tetanus, Diphtheria Vaccination: No Hx Influenza Vaccination: Yes Hx Pneumococcal Vaccination: Yes - Social History Hx Tobacco Use: Yes Hx Alcohol Use: No Hx Substance Use: No Hx Substance Use Treatment: No Hx Depression: No Hx Physical Abuse: No Hx Emotional Abuse: No - Female History Patient : No Family Medical History - Family History Mother Family History: Unknown Living Status: Unknown Physical Exam - Physical Exam General Appearance: Anxious, Ill Appearing Eyes, Ears, Nose, Throat Exam: PERRL/EOMI, normal ENT inspection Neck: full range of motion, supple Respiratory: chest non-tender, respiratory distress, decreased breath sounds Cardiovascular/Chest: normal peripheral pulses, regular rate, rhythm Gastrointestinal/Abdominal: non tender, soft, no organomegaly Extremity: normal range of motion, non-tender, normal inspection Neurologic: no motor/sensory deficits, alert, normal mood/affect Skin Exam: normal color, warm/dry Lymphatic: no adenopathy Progress - Progress Progress: 07/06/19 16:56 Pt reviewed and he is much better after breathing tx .SOB improved - EKG/XRAY/CT EKG: no ST T wave changes XRAY: chest Xray Comments: Normal CT: Normal Departure - Departure Clinical Impression: Acute exacerbation of chronic obstructive airways disease, COPD with acute exacerbation Time of Disposition: 16:58 Disposition: Discharge to Home or Self Care Condition: Good Instructions: DI for Hypoxia, DI for Asthma -- Adult Diet: resume usual diet Referrals: Lee Johnson MD [Primary Care Provider] - 1-2 Weeks Prescriptions: Prednisone 50 mg PO DAILY 7 Days #7 tab Home Medications: Ambulatory Orders Albuterol Sulfate Nebs [Proventil Nebs] 2.5 mg NEB Q4H PRN #120 vial 06/04/18 Fluticasone Furoate-Vilanterol [Breo Ellipta] 1 inh IN DAILY 07/06/19 Prednisone 50 mg PO DAILY 7 Days #7 tab 07/06/19 Additional Instructions: Refer to Pulmonology
[2019-07-06] MEDS ORDERED: levoFLOXacin 500MG IV 100 ML IVPB ONE (15:28)
--- NOTE | 2019-07-06 15:58 | RAD ---
EXAM DESCRIPTION: Chest, x-ray 1 View CLINICAL HISTORY: sob COMPARISON: April 09, 2019 FINDINGS: Cardiac silhouette is within normal limits. There is no focal parenchymal or pleural disease. There is no acute osseous process visualized. IMPRESSION: No evidence of acute cardiopulmonary disease. Electronically signed by: Roger Ibarra MD 07/06/2019 3:56 PM CDT
--- NOTE | 2019-07-06 17:22 | CT ---
PROCEDURE: CTA Chest CLINICAL HISTORY: 69 years Male elevated d dimer COMPARISON: CT chest lung screening study from 12/24/2018. TECHNIQUE: Contiguous axial images obtained through the chest during the infusion of IV contrast. Reformatted images obtained. MIP reformatted images obtained. This exam was performed according to our department optimization program which includes automated exposure control, adjustment of the mA and/or kv according to patient size and/or use of iterative reconstruction technique. FINDINGS: The visualized upper abdominal organs appear unremarkable. Coronary artery calcifications. Small pericardial effusion. Small lymph nodes in the mediastinum. These appear similar compared to the prior study. Mild atherosclerotic changes in the thoracic aorta. No pulmonary emboli are identified. No consolidating infiltrates or pleural effusions. No pneumothorax. Scarring in the lung apices. Spiculated nodular density along the anterolateral chest wall on image 22/110 which is similar compared to the prior study. There is also pleural-based nodular density in the left upper lung on axial image 13/110 which appears similar. There are emphysematous changes most pronounced in the upper lungs. IMPRESSION: No pulmonary emboli are identified. Spiculated appearing nodular density along the anterior lateral chest wall on the right and pleural-based nodular density in the left upper lung on the left. The lesions appear stable compared to the previous study. Follow-up in one year is recommended. Emphysematous changes. Electronically signed by: Sawyer Arana MD 07/06/2019 5:21 PM CDT
[2019-07-06 18:03] VITALS: BP 128/69; TEMP 98.6; O2SAT 95
== END 2019-07-06 18:02 | disposition home or self-care (01) ==
LOC: ER 14:57
DX: J44.1 Chronic obstructive pulmonary disease with (acute) exacerbation (principal); Z99.81 Dependence on supplemental oxygen; Z87.891 Personal history of nicotine dependence; Z79.899 Other long term (current) drug therapy; Z88.8 Allergy status to other drugs, medicaments and biological substances; Z88.5 Allergy status to narcotic agent
CPT/HCPCS: 36415; 71045; 71275; 80053; 83880; 84484; 85025; 85379; 87040; 93005; 94640; 94760; J1956; J2930; J7620

== ENCOUNTER 2019-10-28 09:29 | Emergency (ER) | payer MEDICARE ==
[2019-10-28] MEDS ORDERED: AZITHROMYCIN 250 MG TAB PO ONE (09:41)
[2019-10-28] MEDS ORDERED: IPRATROPIUM/ALBUTEROL 3 ML VIAL NEB ONE ×2 (09:41→11:08)
[2019-10-28] MEDS ORDERED: DEXAMETHASONE 1 MG/ML BTTL PO ONE (09:41)
[2019-10-28] MEDS ORDERED: ACETAMINOPHEN 500 MG TAB PO ONE (09:43)
--- NOTE | 2019-10-28 09:47 | ED.PDOC ---
History of Present Illness - General Chief Complaint: Respiratory Problem Stated Complaint: shortness of breath Time Seen by Provider: 10/28/19 09:34 Source: patient, family - History of Present Illness Initial Comments: 69 M +pmh presents with family to ED c/o 2 days of progressively worsening SOB with associated CP and headache. Pt has COPD and is on 4-5L O2 by nasal canula for maintenance at all times but has been unable to control his symptoms. Pt has taken x2 nebulized albuterol treatments today with no relief. + h/o similar sx's. He currently denies n/v/d, f/c, abd pain, bodyaches, and/or acute changes in bowels/urination. Pt is otherwise without other complaints. Allergies/Adverse Reactions: Allergies Alprazolam Allergy (Verified 04/08/19 21:19) Unknown Hydromorphone [From Dilaudid] Allergy (Verified 04/08/19 21:19) Unknown Home Medications: Ambulatory Orders RX: Albuterol Sulfate Nebs [Proventil Nebs] 2.5 mg NEB Q4H PRN #120 vial 06/04/18 Fluticasone Furoate-Vilanterol [Breo Ellipta] 1 inh IN DAILY 07/06/19 Albuterol Sulfate [Proair Hfa] 2 puff INH Q6H PRN 10/28/19 Azithromycin [Zithromax Z-John] 250 mg PO DAILY 5 Days #6 tab 10/28/19 Benzonatate Perles [Tessalon Perles] 200 mg PO Q8HR PRN #30 cap 10/28/19 RX: Prednisone 10 mg PO DAILY #1 john 10/28/19 Tiotropium Girard Monohydrate [Spiriva Handihaler] 18 mcg INH DAILY 10/28/19 Review of Systems - Review of Systems Constitutional: Denies: chills, diaphoresis, fever EENTM: Denies: double vision, throat pain Respiratory: States: cough, short of breath Cardiology: States: chest pain. Denies: palpitations, syncope Gastrointestinal/Abdominal: Denies: abdominal pain, constipation, diarrhea, nausea, vomiting Genitourinary: Denies: dysuria, frequency Musculoskeletal: Denies: back pain, joint pain, neck pain Skin: Denies: rash Neurological: States: headache. Denies: numbness Endocrine: Denies: unexplained weight gain Past Medical History (General) - Patient Medical History Hx Seizures: No Hx Stroke: No Hx Asthma: Yes Hx of COPD: Yes Hx Cardiac Disorders: No Hx Congestive Heart Failure: No Hx Pacemaker: No Hx Hypertension: No Hx Thyroid Disease: No Hx Diabetes: No Hx Gastroesophageal Reflux: No Hx Renal Disease: No Hx Cancer: No Hx of HIV: No Hx Hepatitis C: No Hx MRSA: No - Vaccination History Hx Tetanus, Diphtheria Vaccination: No Hx Influenza Vaccination: Yes Hx Pneumococcal Vaccination: Yes - Social History Hx Tobacco Use: Yes Hx Alcohol Use: No Hx Substance Use: No Hx Substance Use Treatment: No Hx Depression: No Hx Physical Abuse: No Hx Emotional Abuse: No - Female History Patient : No Family Medical History - Family History Mother Family History: Unknown Living Status: Unknown Physical Exam - Physical Exam General Appearance: Alert, Other - Mild distress, thin Eyes, Ears, Nose, Throat Exam: PERRL/EOMI, pharynx normal, other - no scleral icterus Neck: non-tender, supple Respiratory: respiratory distress - mild, accessory muscle use - trace, wheezing - diffuse, expiratory, other - no rales, rhonchi, and/or stridor Cardiovascular/Chest: regular rate, rhythm, no edema, no gallop, no JVD, no murmur Gastrointestinal/Abdominal: normal bowel sounds, non tender, soft, no pulsatile mass Rectal Exam: deferred Extremity: normal inspection, no pedal edema Neurologic: no motor/sensory deficits, alert, normal mood/affect, oriented x 3 Skin Exam: warm/dry, pallor - mild Progress - Progress Progress: Presents with COPD exacerbation. I will evaluate labs, imaging, EKG, provide appropriate pharmacotherapy, and continue to monitor/reassess. Disposition will depend on findings and pt's clinical course in ED. Multiple rechecks of pt throughout ED course. Pt continued to show improvement throughout course with resolution of respiratory distress, improved air movement with decreased wheezing on auscultation. Pt voiced feeling better and wanting to go home. I discussed diagnosis along with my clinical findings. I have instructed pt and family member on ED return precautions, discharge, follow up, education, and prescriptions. Pt and family member voice understanding, agree with plan, and all questions answered. - Results/Orders Results/Orders: EKG @1004: ED physician read @1005: NSR @ 94 with artifact. Nl axis, intervals wnl, no ST elevations/depressions, nonspecific ST/T-wave changes. No STEMI. Compared with 07/06/2019 EKG: no changes concerning for acute ischemia. Laboratory Tests 10/28/19 10/28/19 10/28/19 09:57 09:57 09:57 WBC 11.2 H RBC 3.65 L Hgb 10.1 L Hct 33.3 L MCV 91.4 MCH 27.7 MCHC 30.3 L RDW 17.6 H Plt Count 200 MPV 8.7 Absolute Neuts (auto) 8.70 H Absolute Lymphs (auto) 0.90 L Absolute Monos (auto) 1.10 H Absolute Eos (auto) 0.40 Absolute Basos (auto) 0.10 Neutrophils % 77.9 Lymphocytes % 7.7 L Monocytes % 9.7 H Eosinophils % 3.8 Basophils % 0.9 Sodium 138 Potassium 4.4 Chloride 100 L Carbon Dioxide 30 Anion Gap 12.4 BUN 15 Creatinine 0.81 BUN/Creatinine Ratio 18.5 Random Glucose 100 Serum Osmolality 276.6 Calcium 8.9 Magnesium 1.8 Troponin I < 0.02 EXAM DESCRIPTION: Chest,1 View CLINICAL HISTORY: 69 years Male, SOB COMPARISON: CT chest dated July 06, 2019 chest radiograph dated November 2018. TECHNIQUE: AP radiograph of the chest was obtained. FINDINGS: The trachea appears midline. The cardiomediastinal silhouette is within normal limits. The pulmonary vascular appears unremarkable. No acute consolidation or pleural effusion. Emphysematous changes are noted. Right lower lobe atelectatic densities are noted. IMPRESSION: 1. Emphysematous changes with no acute consolidation or pleural effusion. 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 Copy, Patient Portal Self Enrollment Instructions: Exacerbation of COPD (DC) Diet: resume usual diet Referrals: Lee Johnson MD [Primary Care Provider] - 1-2 Weeks Prescriptions: Benzonatate Perles [Tessalon Perles] 200 mg PO Q8HR PRN #30 cap PRN Reason: Cough Azithromycin [Zithromax Z-John] 250 mg PO DAILY 5 Days #6 tab RX: Prednisone 10 mg PO DAILY #1 john Home Medications: Ambulatory Orders RX: Albuterol Sulfate Nebs [Proventil Nebs] 2.5 mg NEB Q4H PRN #120 vial 06/04/18 Fluticasone Furoate-Vilanterol [Breo Ellipta] 1 inh IN DAILY 07/06/19 Albuterol Sulfate [Proair Hfa] 2 puff INH Q6H PRN 10/28/19 Azithromycin [Zithromax Z-John] 250 mg PO DAILY 5 Days #6 tab 10/28/19 Benzonatate Perles [Tessalon Perles] 200 mg PO Q8HR PRN #30 cap 10/28/19 RX: Prednisone 10 mg PO DAILY #1 john 10/28/19 Tiotropium Girard Monohydrate [Spiriva Handihaler] 18 mcg INH DAILY 10/28/19
[2019-10-28] MEDS ORDERED: DEXAMETHASONE INJ 10 MG/ML VIAL PO ONE (09:58)
--- NOTE | 2019-10-28 10:37 | RAD ---
EXAM DESCRIPTION: Chest,1 View CLINICAL HISTORY: 69 years Male, SOB COMPARISON: CT chest dated July 06, 2019 chest radiograph dated November 2018. TECHNIQUE: AP radiograph of the chest was obtained. FINDINGS: The trachea appears midline. The cardiomediastinal silhouette is within normal limits. The pulmonary vascular appears unremarkable. No acute consolidation or pleural effusion. Emphysematous changes are noted. Right lower lobe atelectatic densities are noted. IMPRESSION: 1. Emphysematous changes with no acute consolidation or pleural effusion. Electronically signed by: Epi Talbert MD 10/28/2019 10:36 AM [facility]
[2019-10-28 13:12] VITALS: BP 108/62; TEMP 98.2; O2SAT 96
== END 2019-10-28 12:12 | disposition home or self-care (01) ==
LOC: ER 09:29
DX: J44.1 Chronic obstructive pulmonary disease with (acute) exacerbation (principal); Z87.891 Personal history of nicotine dependence; Z79.899 Other long term (current) drug therapy; Z88.8 Allergy status to other drugs, medicaments and biological substances; Z88.5 Allergy status to narcotic agent
CPT/HCPCS: 36415; 71045; 80048; 83735; 84484; 85025; 93005; 94640; J1100; J7620; Q0144

== ENCOUNTER 2019-11-01 15:27 | Inpatient (IN) | payer MEDICARE ==
[2019-11-01] MEDS ORDERED: IPRATROPIUM/ALBUTEROL 3 ML VIAL NEB ONE (15:53)
[2019-11-01] MEDS ORDERED: methylPREDNISolone SODIUM SUC 125 MG/2 ML VIAL IV ONE (15:53)
[2019-11-01] MEDS ORDERED: SODIUM CHLORIDE 0.9% 1000ML 1,000 ML IVS PRN (15:53)
--- NOTE | 2019-11-01 15:56 | ED.PDOC ---
History of Present Illness - General Chief Complaint: Respiratory Problem Stated Complaint: cough Time Seen by Provider: 11/01/19 15:43 Source: patient, RN notes reviewed, Vital Signs reviewed, family Exam Limitations: no limitations Additional Information: this is a 69-year-old gentleman who presents today with his granddaughter with complaints of shortness of breath and cough. He was seen here on [facility] and declined admission for his copd exacerbation. He was sent home on zpak and prednisone. He states that he has had chills but no fever. He is unsure if he had a flu shot this year. His granddaughter states that he called her to come and check on him and that is unusual for him. When she arrived he did not have his oxygen on. She reports that he is still a smoker. She states that the family is considering prison placement for him. They deny that he has had any recent GI symptoms. He denies any pain anywhere presently. He also denies having any recent swelling. - History of Present Illness Allergies/Adverse Reactions: Allergies Alprazolam Allergy (Verified 11/01/19 16:01) Unknown Hydromorphone [From Dilaudid] Allergy (Verified 11/01/19 16:01) Unknown Home Medications: Ambulatory Orders Albuterol Sulfate Nebs [Proventil Nebs] 2.5 mg NEB Q4H PRN #120 vial 06/04/18 Fluticasone Furoate-Vilanterol [Breo Ellipta] 1 inh IN DAILY 07/06/19 Albuterol Sulfate [Proair Hfa] 2 puff INH Q6H PRN 10/28/19 Azithromycin [Zithromax Z-John] 250 mg PO DAILY 5 Days #6 tab 10/28/19 Benzonatate Perles [Tessalon Perles] 200 mg PO Q8HR PRN #30 cap 10/28/19 Prednisone 10 mg PO DAILY #1 john 10/28/19 Tiotropium Savage Monohydrate [Spiriva Handihaler] 18 mcg INH DAILY 10/28/19 Review of Systems - Review of Systems Constitutional: States: chills, malaise. Denies: fever EENTM: States: no symptoms reported, other - wears a patch over his right eye, previous avm Respiratory: States: cough, short of breath, wheezing. Denies: orthopnea, stridor Cardiology: States: no symptoms reported. Denies: chest pain, edema, palpitations Gastrointestinal/Abdominal: States: no symptoms reported Genitourinary: States: no symptoms reported Musculoskeletal: States: no symptoms reported Skin: States: no symptoms reported, other - dystrophic nails Neurological: States: no symptoms reported, other - confusion when not wearing his oxygen Endocrine: States: no symptoms reported Hematologic/Lymphatic: States: no symptoms reported All other Systems: Reviewed and Negative Past Medical History (General) - Patient Medical History Hx Seizures: No Hx Stroke: No Hx Asthma: Yes Hx of COPD: Yes Hx Cardiac Disorders: No Hx Congestive Heart Failure: No Hx Pacemaker: No Hx Hypertension: No Hx Thyroid Disease: No Hx Diabetes: No Hx Gastroesophageal Reflux: No Hx Renal Disease: No Hx Cancer: No Hx of HIV: No Hx Hepatitis C: No Hx MRSA: No - Vaccination History Hx Tetanus, Diphtheria Vaccination: No Hx Influenza Vaccination: Yes Hx Pneumococcal Vaccination: Yes - Social History Hx Tobacco Use: Yes Hx Alcohol Use: No Hx Substance Use: No Hx Substance Use Treatment: No Hx Depression: No Hx Physical Abuse: No Hx Emotional Abuse: No - Female History Patient : No Family Medical History - Family History Mother Family History: Unknown Living Status: Unknown Physical Exam - Physical Exam General Appearance: Alert, No apparent distress Eye Exam: left other - wears a patch ENT Exam: normal ENT inspection, other - dry op Neck: non-tender, full range of motion, supple, normal inspection, trachea midline Respiratory: chest non-tender, no respiratory distress, no accessory muscle use, rales, rhonchi, wheezing, expiration, other - noted bilaterally Cardiovascular/Chest: normal peripheral pulses, regular rate, rhythm, no edema, no gallop, no JVD, no murmur Gastrointestinal/Abdominal: normal bowel sounds, non tender, soft, no organomegaly Extremity: normal range of motion, non-tender, normal inspection, no pedal edema, no calf tenderness Neurologic: manager shift II-XII nml as tested, no motor/sensory deficits, alert, normal mood/affect, oriented x 3 Skin Exam: other - dystrophic nails noted, Lymphatic: no adenopathy Progress - Progress Progress: 11/01/19 16:04 MDM: Patient differential includes pneumonia, COPD exacerbation, fluid, respiratory failure, electrolyte disturbance, leukocytosis, influenza. Patient will be evaluated with x-rays as well as laboratory studies. We will get blood cultures on him as well. Will start IV Solu-Medrol and DuoNeb's. Patient will likely be admitted for further evaluation and treatment. He is a failed outpatient treatment of COPD exacerbation. 11/01/19 16:37 Initiating abx treatment. 11/01/19 17:32 Notified pt and family that we are just waiting on his flu test. His Sa02 is now 97 % on 2L nc. 11/01/19 17:38 11/01/19 18:07 Discussed case with LAZ Hernandez and he is in agreement to admit for further treatment of copd exacerbation. - Results/Orders Results/Orders: TECHNIQUE: AP view of the chest was obtained. FINDINGS: Cardiac size is within normal limits. Central vessels are not increased. Right hilar fullness now identified. No infiltrates or effusions seen. No consolidation. No pneumothorax. IMPRESSION: Right hilar fullness which may be related to prominent vasculature however underlying adenopathy not excluded. Correlation with standard PA view of the chest would be suggested for further characterization. No new infiltrates seen. Chronic change. Electronically signed by: Swetha Sharp MD 11/01/2019 4:34 PM [employer] Negative FLU a and b Departure - Departure Clinical Impression: COPD with acute exacerbation, Hypoxemia Dyspnea Qualifiers: Dyspnea type: shortness of breath Qualified Code(s): R06.02 - Shortness of breath; R06.00 - Dyspnea, unspecified; R06.01 - Orthopnea Time of Disposition: 18:09 Disposition: Admit Patient Departure Forms: ED Discharge - Pt. Copy, Patient Portal Self Enrollment Referrals: Lee Johnson MD [Primary Care Provider] - 1-2 Weeks Home Medications: Ambulatory Orders Albuterol Sulfate Nebs [Proventil Nebs] 2.5 mg NEB Q4H PRN #120 vial 06/04/18 Fluticasone Furoate-Vilanterol [Breo Ellipta] 1 inh IN DAILY 07/06/19 Albuterol Sulfate [Proair Hfa] 2 puff INH Q6H PRN 10/28/19 Azithromycin [Zithromax Z-John] 250 mg PO DAILY 5 Days #6 tab 10/28/19 Benzonatate Perles [Tessalon Perles] 200 mg PO Q8HR PRN #30 cap 10/28/19 Prednisone 10 mg PO DAILY #1 john 10/28/19 Tiotropium Savage Monohydrate [Spiriva Handihaler] 18 mcg INH DAILY 10/28/19 Decision To Admit - Decistion To Admit Decision to Admit Reason: Admit from ER Decision to Admit Date: 11/01/19 Decision to Admit Time: 18:06
[2019-11-01] MEDS ORDERED: PIPERACILLIN/TAZOBACTAM 4.5 GM in SODIUM CHLORIDE 0.9% 100ML 100 ML IVPB ONE (16:36)
--- NOTE | 2019-11-01 16:36 | RAD ---
EXAM DESCRIPTION: Chest,1 View CLINICAL HISTORY: 69 years Male sob COMPARISON: October 28, 2019. TECHNIQUE: AP view of the chest was obtained. FINDINGS: Cardiac size is within normal limits. Central vessels are not increased. Right hilar fullness now identified. No infiltrates or effusions seen. No consolidation. No pneumothorax. IMPRESSION: Right hilar fullness which may be related to prominent vasculature however underlying adenopathy not excluded. Correlation with standard PA view of the chest would be suggested for further characterization. No new infiltrates seen. Chronic change. Electronically signed by: Swetha Sharp MD 11/01/2019 4:34 PM [facility]
[2019-11-01] MEDS ORDERED: SODIUM CHLORIDE 0.9% 100ML 0 ML IVPB ONE (16:44)
[2019-11-01] MEDS ORDERED: PIPERACILLIN/TAZOBACTAM 2.25 GM VIAL IVPB ONE (16:44)
--- NOTE | 2019-11-01 19:11 | HP ---
SUPERVISING PHYSICIAN: WING MUSTAFA MD CHIEF COMPLAINT: Shortness of breath. HISTORY OF PRESENT ILLNESS: Mr. Rashid is a 69 year-old male patient who lives at home with his granddaughter. The patient is a very poor historian and no family is present at time of admission, therefore, history was obtained from Emergency Room charts and past medical records. He was brought to the Emergency Room with complaints of worsening shortness of breath and increasing cough. He was seen in the Emergency Room on and evaluated and was offered admission for exacerbation of chronic obstructive pulmonary disease and he declined at that time. He was sent home on Z-John and prednisone. He noted he started having some chills but denied any actual fever. His granddaughter endorses that he called her to come check on him which is not usual for him. When she arrived, she noted that his oxygen was not on which he is 02 dependent and he still smokes. She brought him to the Emergency Room for evaluation at which time he was found to be off 02, saturation in the low 70s and in the high 80s back on 2 liter nasal cannula. After breathing treatments he was showing improvement into the low 90s. Laboratory studies showed he had a normal white count with an early left shift. Chemistries showed an elevated C02 at 33 with BUN 19, creatinine 0.67. Lactic acid was normal at 2.2. A chest x-ray was completed and per radiology interpretation there was note of right hilar fullness which could represent prominent vasculature, however, underlying adenopathy could not be excluded. In the Emergency Room, he was treated with Duoneb treatments, given a dose of Solu-Medrol and antibiotic coverage initially with Zosyn. Given that he failed outpatient treatment plan within the last week and been on antibiotic coverage and has advanced chronic obstructive pulmonary disease and is showing some mental status changes in regards to his normal baseline, the patient is going to be admitted for further evaluation and treatment of underlying exacerbation of chronic obstructive pulmonary disease. He is admitted in stable condition. PAST MEDICAL HISTORY: 1. Chronic obstructive pulmonary disease, 02 dependent. 2. 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 3. Dementia with depression. PAST SURGICAL HISTORY: 1. Cataract removal. 2. 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 CURRENT MEDICATIONS: Please see updated list of verified medications that accompanies medical record. Medications were not updated at time of admission. ALLERGIES: Alprazolam and hydromorphone. FAMILY HISTORY: Positive for chronic obstructive pulmonary disease and alcoholism. SOCIAL HISTORY: The patient is a current smoker. He is unable to tell me how long he has been smoking. He does not drink alcohol currently but has drank heavily in the past. 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 He is , has three children and apparently lives by himself but is cared for by his granddaughter. REVIEW OF SYSTEMS: CONSTITUTIONAL: Denied fevers but positive for chills. Patient is unsure if he has lost any weight. HEENT: He has vision problems in the left eye due to past stroke and wears an eye patch. Reported no vision changes in the right eye. No sore throat, earaches, nasal congestion, headaches. RESPIRATORY: Positive for ongoing cough as noted in hematocrit of but no hemoptysis. He does have some wheezing with a nonproductive cough. CARDIOVASCULAR: Denies chest pain, palpitations, syncopal episodes or peripheral edema. GASTROINTESTINAL: Denies nausea, vomiting, diarrhea, constipation or abdominal pains. GENITOURINARY: Denies dysuria, hematuria, or polyuria. NEUROLOGIC: Negative for syncope episodes, seizures or paresthesias, ataxia or other focal neurological deficits. HEMATOLOGIC: No easy bruising or transfusion reaction. SKIN: No reported rashes, lesions or changes. PHYSICAL EXAMINATION: VITAL SIGNS: Temperature 97.6, pulse 76, blood pressure 147/66, respirations are significant at 24 to 26 with room air, oxygen saturations ranging from 75 to 85, improving with nasal cannula and breathing treatment to 93% on 2 liter nasal cannula. Admission weight 54 kg. GENERAL: The patient appears to be in no acute obvious distress. He is unkept. He is alert. He is very thin in appearance. HEENT: Left eye has a patch. Oropharynx is pink with notably dry mucous membranes. NECK: Supple, non-tender with full range of motion. CHEST: Lung sounds were diminished towards the bases with notable inspiratory and expiratory wheezing bilaterally. No rhonchi or rales noted. CARDIOVASCULAR: Regular rate and rhythm without appreciable murmurs, rubs, or gallops. ABDOMEN: Soft, non-tender, positive bowel sounds. EXTREMITIES: Without cyanosis, clubbing, or edema. SKIN: Warm, dry and pink with no dystrophic nails to both hands. NEUROLOGIC: Cranial nerves II through XII are grossly intact. He is alert to himself, has difficulty answering questions but family members are not present at time of exam. He does not appear to be confused but has some difficulty articulating his thoughts. LABORATORY: White count 9.600, hemoglobin 11.3, hematocrit 37.0, platelet count 210,000. Differential shows a developing left shift. Chemistries show normal sodium and potassium. His carbon dioxide is elevated at 33. BUN 19, creatinine 0.67, lactic acid 2.2. Liver functions all within normal limits. MICROBIOLOGY: Influenza A and B by PCR was negative. RADIOLOGY: Chest x-ray, single view, shows right hilar fullness which may be related to chronic vasculature, however, underlying adenopathy is not excluded. No infiltrates are seen. There is note of chronic changes. ASSESSMENT: 1. Hypoxic encephalopathy due to chronic obstructive pulmonary disease with exacerbation with hypercapnic presentation on a patient 02 dependent and having failed recent treatment within the last week. 2. Exacerbation of chronic obstructive pulmonary disease without any signs of pneumonia currently, having failed to respond to recent treatment for exacerbation. 3. History of dementia with depression. 4. History of cerebrovascular accident with left eye vision loss. 5. Onychomycosis of both upper and lower extremities. PLAN: The patient is going to be admitted to the hospital for continued treatment and evaluation of exacerbation of chronic obstructive pulmonary disease. At this point, he does not appear to have any signs or symptoms of pneumonia, although he has failed the treatment plan. This does appear to be more of an exacerbation, although we will continue to cover with antibiotics given his history and previous treatment with antibiotics in the past. He will be on aggressive pulmonary hygiene with Duoneb treatments and aggressive toiletry. We will resume his home medications once they are updated and verified. Will go ahead and start him on some IV fluids with D5 normal saline at 80 an hour. He will be on DVT prophylaxis per protocol. We will repeat his labs and x-rays in the morning. He will remain on 02 as he is 02 dependent. I would anticipate his length of stay to be at least 2 to 3 days. At this point, I think his course of treatment is going to be antibiotics and steroids. He was given Solu-Medrol 125 mg. Will continue with 60 mg every 6 hours for 3 doses and reevaluate in the morning with anticipation of transitioning him to oral prednisone at discharge. Until we can discharge him to outpatient management, we will continue to monitor and treat as needed. #[id number] [facility]
[2019-11-01] MEDS ORDERED: ACETAMINOPHEN 325 MG TAB PO PRN (19:54)
[2019-11-01] MEDS ORDERED: ALBUTEROL SULFATE 2.5 MG/3 ML VIAL NEB PRN (19:54)
[2019-11-01] MEDS ORDERED: SODIUM CHLORIDE 0.9% (FLUSH) 10 ML SYG IV PRN (19:54)
[2019-11-01] MEDS ORDERED: ONDANSETRON INJ 4 MG/2 ML VIAL IV PRN (19:54)
[2019-11-01] MEDS ORDERED: IV SET AND CAP CHANGE INJ INJ SCH (20:00)
[2019-11-01] MEDS ORDERED: IPRATROPIUM/ALBUTEROL 3 ML VIAL INH SCH (20:00)
[2019-11-01] MEDS ORDERED: cefTRIAXone SODIUM 1 GM VIAL ONE (21:13)
[2019-11-01] MEDS ORDERED: SODIUM CHLORIDE 0.9% 100ML 100 ML IVPB ONE (21:14)
[2019-11-01] MEDS: cefTRIAXone SODIUM 1 GM in SODIUM CHL 0.9% 50ML MIN-BAG+ 50 ML IVPB SCH (21:14)
[2019-11-01] MEDS ORDERED: SODIUM CHLORIDE 0.9% 50ML 50 ML ONE (21:15)
[2019-11-01] MEDS: BUDESONIDE NEBS 0.5 MG/2 ML INH NEB SCH (21:24)
[2019-11-01] MEDS: DEX 5% W/NACL 0.45% 1000ML 1,000 ML IVS PRN (21:39)
[2019-11-01] MEDS ORDERED: AZITHROMYCIN IV 500 MG VIAL IVPB ONE (21:57)
[2019-11-01] MEDS ORDERED: SODIUM CHLORIDE 0.9% 250ML 250 ML ONE (21:57)
[2019-11-01] MEDS: AZITHROMYCIN IV 500 MG in SODIUM CHLORIDE 0.9% 250ML 250 ML IVPB SCH (21:59)
[2019-11-01] MEDS: methylPREDNISolone SODIUM SUC 125 MG/2 ML VIAL IV SCH (22:26)
[2019-11-02] MEDS: methylPREDNISolone SODIUM SUC 125 MG/2 ML VIAL IV SCH ×3 (00:28→17:47)
[2019-11-02] MEDS ORDERED: PANTOPRAZOLE SODIUM IV 40 MG VIAL ONE (03:54)
[2019-11-02] MEDS: PANTOPRAZOLE SODIUM IV 40 MG VIAL IV SCH (06:37)
[2019-11-02] MEDS ORDERED: BUDESONIDE NEBS 0.25 MG/2 ML INH ONE (07:29)
[2019-11-02] MEDS: BUDESONIDE NEBS 0.5 MG/2 ML INH NEB SCH ×2 (08:33→20:28)
[2019-11-02] MEDS: IPRATROPIUM/ALBUTEROL 3 ML VIAL NEB SCH ×4 (08:33→20:28)
--- NOTE | 2019-11-02 09:40 | RAD ---
EXAM: XR Chest, 2 Views CLINICAL HISTORY: Pneumonia TECHNIQUE: Frontal and lateral views of the chest. COMPARISON: 11/01/2019 and CTA chest 07/06/2019. FINDINGS: Lungs: Stable prominent right hilar vasculature. Stable emphysematous disease and chronic interstitial scarring. No confluent consolidation. Pleural space: Unremarkable. No pneumothorax. Heart: Unremarkable. No cardiomegaly. Mediastinum: Unremarkable. Bones/joints: Unremarkable. IMPRESSION: No acute findings in the chest. Stable chronic changes. Electronically signed by: Kristan Luna MD 11/02/2019 9:39 AM [employer]
[2019-11-02] MEDS: DEX 5% W/NACL 0.45% 1000ML 1,000 ML IVS PRN (13:01)
[2019-11-02] MEDS ORDERED: SODIUM CHLORIDE 0.9% 250ML 250 ML ONE (19:40)
[2019-11-02] MEDS ORDERED: SODIUM CHL 0.9% 50ML MIN-BAG+ 50 ML IVPB ONE (19:40)
[2019-11-02] MEDS ORDERED: cefTRIAXone SODIUM 1 GM VIAL ONE (19:41)
[2019-11-02] MEDS ORDERED: AZITHROMYCIN IV 500 MG VIAL IVPB ONE (19:41)
[2019-11-02] MEDS: cefTRIAXone SODIUM 1 GM in SODIUM CHL 0.9% 50ML MIN-BAG+ 50 ML IVPB SCH (19:45)
--- NOTE | 2019-11-02 20:04 | PN ---
DATE: 11/02/19 SUPERVISING PHYSICIAN: Abraham Lane M.D. SUBJECTIVE: The patient is much more alert and oriented this morning. He said he rested overnight and feels much better. He is still significantly short of breath and has a productive cough. OBJECTIVE: VITAL SIGNS: He remains afebrile with temperature 97.8, pulse 71, blood pressure 140/72, respirations 18, satting 94% on 2 liters nasal cannula. GENERAL: The patient appears to be in no acute distress. His appearance is unkempt. CHEST: Lung sounds are quite diminished towards the bases but no obvious wheezing is noted today. There is no rhonchi or rales. HEART: Regular rate and rhythm. ABDOMEN: Soft, non-tender. Positive bowel sounds. EXTREMITIES: Without any edema. NEUROLOGIC: He is alert and oriented times three with no obvious focal motor deficits. LABORATORY: White count 3,700, hemoglobin 9.7, hematocrit 31.2, platelet count 203,000. Differential does show a developing left shift. Chemistries today show normal electrolytes, BUN 25, creatinine 0.72, calcium 8.6. MICROBIOLOGY: Influenza A and B by PCR is negative. Blood cultures are pending. RADIOLOGY: Repeat chest x-ray this morning per radiology interpretation showed no acute findings in the chest. No confluent consolidations. ASSESSMENT: 1. Hypoxic encephalopathy on admission due to chronic obstructive pulmonary disease exacerbation with hypercapnic presentation on a patient 02 dependent having failed to respond to recent treatment as an outpatient. 2. Exacerbation of chronic obstructive pulmonary disease having failed to respond to recent treatment as an outpatient showing good response to parenteral antibiotics and current treatment plan. 3. History of dementia with depression. 4. Severe deconditioning from chronic illness and exacerbated by acute illness within the last week. 5. History of previous cerebrovascular accident with left eye vision loss. 6. Onychomycosis of both upper and lower extremities. PLAN: Will continue with current plan at this point with aggressive pulmonary hygiene and antibiotic coverage with Rocephin and azithromycin. I will continue with Solu-Medrol at 60 mg every 6 hours for an additional 3 doses and hopefully be able to titrate him to oral prednisone within the next 24 hours. He is significantly deconditioned and due to his dementia he is nowhere safe at home by himself. I think he would benefit from a Social consultation and physical therapy in efforts to put him in a senior living unit if possible once he is clinically stable. His family is in agreement to this. He is also in agreement to it, although he is a little confused he is aware of the situation and he knows he is not safe at home. I have not had seen his family today to discuss their options of which facility they would want to pursue. We can deal with that tomorrow. I have ordered a Social consultation as well as a Physical Therapy consultation. Until we can transition him to outpatient management will continue to monitor and treat as needed. #[id number] [facility]
[2019-11-02] MEDS: ENOXAPARIN SODIUM 40 MG/0.4 ML SYG SUBCU SCH (20:10)
[2019-11-02] MEDS: AZITHROMYCIN IV 500 MG in SODIUM CHLORIDE 0.9% 250ML 250 ML IVPB SCH (20:31)
[2019-11-03] MEDS: methylPREDNISolone SODIUM SUC 125 MG/2 ML VIAL IV SCH ×2 (00:04→06:20)
[2019-11-03] MEDS: DEX 5% W/NACL 0.45% 1000ML 1,000 ML IVS PRN ×2 (04:04→19:33)
[2019-11-03] MEDS: PANTOPRAZOLE SODIUM IV 40 MG VIAL IV SCH (06:25)
[2019-11-03] MEDS: IPRATROPIUM/ALBUTEROL 3 ML VIAL NEB SCH ×4 (08:45→20:15)
[2019-11-03] MEDS: BUDESONIDE NEBS 0.5 MG/2 ML INH NEB SCH ×2 (08:45→20:15)
--- NOTE | 2019-11-03 18:28 | PCM.PROG ---
PCM Subjective - Review of Systems Events since last encounter: The patient feels as though he is breathing better. No events overnight per nurses. He is in no distress. Tolerating diet well. Objective - Exam Vitals and I&O: Vital Signs Temp 98.5 F 11/03/19 17:53 Pulse 79 11/03/19 17:53 Resp 20 11/03/19 17:53 BP 128/64 11/03/19 17:53 Pulse Ox 97 11/03/19 17:53 Intake & Output 11/02/19 11/03/19 11/03/19 18:59 06:59 18:59 Intake Total 1500 1250 620 Output Total 450 950 275 Balance 1050 300 345 Weight 121 lb 9.6 oz 127 lb 8 oz Intake: IV 1000 1000 D5 1/2NS 1000ml 1,000 ML 1000 1000 @ 80 mls/hr IVS .QD PRN Rx#:[id number] Oral 500 250 620 Output: Urine 450 950 275 Other: # Voids 1 1 General: Alert, Cooperative, No acute distress HEENT: Mucous membr. moist/pink, Other - Patch over left eye Neck: Supple, No JVD Lungs: Other - diffusely diminished, but otherwise CTA Cardiovascular: Regular rate, Normal S1, Normal S2 Abdomen: Normal bowel sounds, Soft, No tenderness Extremities: No edema Psych/Mental Status: Other - confused - Results Results: Laboratory Results WBC 3.7 K/mm3 (4.8-10.8) L 11/02/19 05:48 RBC 3.51 M/mm3 (4.70-6.10) L 11/02/19 05:48 Hgb 9.7 gm/dL (14.0-18.0) L 11/02/19 05:48 Hct 31.2 % (42.0-52.0) L 11/02/19 05:48 MCV 88.9 fl (80.0-94.0) 11/02/19 05:48 MCH 27.7 pg (27.0-31.0) 11/02/19 05:48 MCHC 31.2 g/dL (33.0-37.0) L 11/02/19 05:48 RDW 17.5 % (11.5-14.5) H 11/02/19 05:48 Plt Count 203 K/mm3 (130-400) 11/02/19 05:48 MPV 9.3 fl (7.40-10.4) 11/02/19 05:48 Absolute Neuts (auto) 3.30 K/uL (1.8-6.8) 11/02/19 05:48 Absolute Lymphs (auto) 0.30 K/uL (1.0-3.4) L 11/02/19 05:48 Absolute Monos (auto) 0.00 K/uL (0.2-0.8) L 11/02/19 05:48 Absolute Eos (auto) 0.00 K/uL (0.0-0.4) 11/02/19 05:48 Absolute Basos (auto) 0.00 K/uL (0.0-0.1) 11/02/19 05:48 Neutrophils % 89.7 % (42.0-78.0) H 11/02/19 05:48 Lymphocytes % 8.9 % (20.0-50.0) L 11/02/19 05:48 Monocytes % 1.2 % (2.0-9.0) L 11/02/19 05:48 Eosinophils % 0.0 % (1.0-5.0) L 11/02/19 05:48 Basophils % 0.2 % (0.0-2.0) 11/02/19 05:48 Sodium 137 mmol/L (135-145) 11/02/19 05:48 Potassium 4.0 mmol/L (3.6-5.0) 11/02/19 05:48 Chloride 101 mmol/L (101-111) 11/02/19 05:48 Carbon Dioxide 29 mmol/L (21-31) 11/02/19 05:48 Anion Gap 11.0 (12-18) L 11/02/19 05:48 BUN 25 mg/dL (7-18) H D 11/02/19 05:48 Creatinine 0.72 mg/dL (0.6-1.3) 11/02/19 05:48 BUN/Creatinine Ratio 34.7 (10-20) H 11/02/19 05:48 Random Glucose 214 mg/dL (70-105) H D 11/02/19 05:48 Serum Osmolality 284.6 mOsm/L (275-295) 11/02/19 05:48 Lactic Acid 2.2 mmol/L (0.5-2.2) 11/01/19 15:52 Calcium 8.6 mg/dL (8.4-10.2) 11/02/19 05:48 Total Bilirubin 0.8 mg/dL (0.2-1.0) 11/01/19 15:52 AST 24 IU/L (10-42) 11/01/19 15:52 ALT 11 IU/L (10-60) 11/01/19 15:52 Alkaline Phosphatase 49 IU/L (42-121) 11/01/19 15:52 Serum Total Protein 6.8 gm/dL (6.4-8.2) 11/01/19 15:52 Albumin 3.7 g/dl (3.2-5.5) 11/01/19 15:52 Globulin 3.1 gm/dL (2.3-3.5) 11/01/19 15:52 Albumin/Globulin Ratio 1.2 (1.1-1.9) 11/01/19 15:52 Assessment/Plan - Assessment Assessment: 1. COPD exacerbation. 2. Acute delirium on chronic dementia. 3. Disuse myopathy. 4. History of stroke with left eye vision loss. - Plan for Current Visit Plan: Will continue nebs and supportive care. Plan for Melquiades Romero after discharge given his inability to care for himself at home due to dementia, COPD, and diminished physical conditioning. Goal for discharge tomorrow.
[2019-11-03] MEDS ORDERED: SODIUM CHL 0.9% 50ML MIN-BAG+ 50 ML IVPB ONE (19:09)
[2019-11-03] MEDS ORDERED: SODIUM CHLORIDE 0.9% 250ML 250 ML ONE (19:09)
[2019-11-03] MEDS ORDERED: cefTRIAXone SODIUM 1 GM VIAL ONE (19:10)
[2019-11-03] MEDS ORDERED: AZITHROMYCIN IV 500 MG VIAL IVPB ONE (19:10)
[2019-11-03] MEDS: cefTRIAXone SODIUM 1 GM in SODIUM CHL 0.9% 50ML MIN-BAG+ 50 ML IVPB SCH (20:31)
[2019-11-03] MEDS: AZITHROMYCIN IV 500 MG in SODIUM CHLORIDE 0.9% 250ML 250 ML IVPB SCH (21:15)
[2019-11-03] MEDS: ENOXAPARIN SODIUM 40 MG/0.4 ML SYG SUBCU SCH (21:15)
[2019-11-04] MEDS: PANTOPRAZOLE SODIUM IV 40 MG VIAL IV SCH (06:00)
[2019-11-04] MEDS: IPRATROPIUM/ALBUTEROL 3 ML VIAL NEB SCH ×3 (08:51→15:57)
[2019-11-04] MEDS: BUDESONIDE NEBS 0.5 MG/2 ML INH NEB SCH (08:51)
[2019-11-04 14:16] VITALS: O2SAT 97
--- NOTE | 2019-11-04 14:36 | PCM.PROG ---
PCM Subjective - Review of Systems Events since last encounter: Patient is breathing fine, no complaints this morning. No significant shortness of breath. Tolerating diet well. Objective - Exam Vitals and I&O: Vital Signs Temp 97.8 F 11/04/19 12:00 Pulse 92 H 11/04/19 12:50 Resp 16 11/04/19 12:50 BP 142/80 11/04/19 12:00 Pulse Ox 97 11/04/19 12:50 Intake & Output 11/03/19 11/04/19 11/04/19 18:59 06:59 18:59 Intake Total 1620 400 350 Output Total 275 800 575 Balance 1345 -400 -225 Weight 129 lb Intake: IV 1000 50 D5 1/2NS 1000ml 1,000 ML 1000 @ 80 mls/hr IVS .QD PRN Rx#:[id number] Rocephin 1 GM In NS 50ml 50 MINI-BAG+ 50 ML @ 100 mls /hr IVPB Q24H ANDREA Rx#: [id number] Oral 620 350 350 Output: Urine 275 800 575 Other: # Voids 1 1 General: Cooperative, No acute distress HEENT: PERRLA, Mucous membr. moist/pink Neck: Supple, No JVD Lungs: Other - diminished Cardiovascular: Regular rate, Normal S1, Normal S2 Abdomen: Normal bowel sounds, Soft, No tenderness Extremities: No edema Psych/Mental Status: Other - confused - Results Results: Assessment/Plan - Assessment Assessment: 1. COPD exacerbation. 2. Delirium on chronic dementia. 3. Disuse myopathy. 4. History of a stroke with left eye vision loss. - Plan for Current Visit Plan: I have stopped the IV antibiotics, and the IV fluid. I have resumed home inhalers. He was denied [facility] and [facility]. So, we are awaiting family decision for placement.
[2019-11-04 16:20] VITALS: BP 145/82; TEMP 97.1
[2019-11-04] MEDS ORDERED: TIOTROPIUM INHALER INH SCH (16:27)
--- NOTE | 2019-11-04 20:39 | DS ---
SUPERVISING PHYSICIAN: Lee Johnson M.D. ADMISSION DIAGNOSIS: 1. Hypoxic encephalopathy due to chronic obstructive pulmonary disease with exacerbation with hypercapnic presentation on a patient O2 dependent and having failed recent treatment within the last week. 2. Exacerbation of chronic obstructive pulmonary disease without any signs of pneumonia having failed to respond to recent treatment for exacerbation. 3. History of dementia with depression. 4. History of cerebrovascular accident with left vision loss. 5. Onychomycosis of both the upper and lower extremities. DISCHARGE DIAGNOSIS: 1. Chronic obstructive pulmonary disease exacerbation, improved. 2. Delirium on chronic dementia, improved. 3. Disuse myopathy. 4. History of stroke with left eye vision loss. HOSPITAL COURSE: This is a 69 year-old male patient who is debilitated from his chronic obstructive pulmonary disease. He lives at home with his granddaughter. He is a poor historian. He has chronic dementia. He came into the Emergency Room with shortness of breath including cough. Apparently he was seen in the Emergency Room on as well but declined admission at that time. When he arrived he had O2 saturations in the 70s and 80s on 2 liters nasal cannula. After breathing treatments and steroids, the patient did have improvement. Chest x-ray was not indicative of any pneumonia. He was referred for admission for those reasons. In the inpatient setting the patient was placed on medications and steroids, and step amato improved. He is also on empiric antibiotics with azithromycin and Rocephin. He step amato improved, however given his debilitation and inability to care for himself, it was felt that he should go to the [facility]. [facility] done to [facility] but they ended up declining him. The same was done at [facility], also they declined him as well. Therefore on the day of discharge today the family decided to take him home to utilize home health. He is being discharged in stable condition. I have resumed his home medications. There is no need for outpatient antibiotics at this time. Additionally, there is no need for any kind of tapering steroids as the patient responded to the IV steroids and has not been on them for the last 24 hours or so. He will need to followup with his primary care physician in the next 1 to 2 weeks. #[id number] [facility]
[2019-11-05] MEDS ORDERED: OMEPRAZOLE CAP 20 MG CAP PO SCH (06:30)
[2019-11-05] MEDS ORDERED: TIOTROPIUM INHALER INH SCH (09:00)
[2019-11-05] MEDS ORDERED: NON-FORMULARY MEDICATION 1 EA MIS (Fluticasone Furoate-Vilanterol [Breo Ellipta 100-25 Mcg IN SCH (09:00)
== END 2019-11-04 18:15 | disposition home health service (06) | DRG 190 ==
LOC: ER 15:27 → MS 19:10 → OBSVTOIN 19:10
PROVIDERS: ADMIT Nurse Practitioner Family; ATTEND Nurse Practitioner
DX: J44.1 Chronic obstructive pulmonary disease with (acute) exacerbation (principal); Q28.2 Arteriovenous malformation of cerebral vessels; G93.1 Anoxic brain damage, not elsewhere classified; F05 Delirium due to known physiological condition; I69.354 Hemiplegia and hemiparesis following cerebral infarction affecting left non-dominant side; I69.398 Other sequelae of cerebral infarction; F32.9 Major depressive disorder, single episode, unspecified; F03.90 Unspecified dementia, unspecified severity, without behavioral disturbance, psychotic disturbance, mood disturbance, and anxiety; H53.9 Unspecified visual disturbance; B35.1 Tinea unguium; G72.89 Other specified myopathies; F17.210 Nicotine dependence, cigarettes, uncomplicated; Z99.81 Dependence on supplemental oxygen; Z88.5 Allergy status to narcotic agent; Z88.8 Allergy status to other drugs, medicaments and biological substances; Z79.52 Long term (current) use of systemic steroids; Z79.899 Other long term (current) drug therapy

== ENCOUNTER 2019-12-22 07:05 | Inpatient (IN) | payer MEDICARE ==
[2019-12-22] MEDS ORDERED: IPRATROPIUM/ALBUTEROL 3 ML VIAL NEB ONE ×2 (07:12→07:17)
[2019-12-22] MEDS ORDERED: SODIUM CHLORIDE 0.9% 1000ML 1,000 ML ONE (08:01)
[2019-12-22] MEDS ORDERED: methylPREDNISolone SODIUM SUC 125 MG/2 ML VIAL IV ONE (08:21)
[2019-12-22] MEDS ORDERED: CETIRIZINE HCL 10 MG TAB PO ONE ×2 (08:21→08:22)
[2019-12-22] MEDS ORDERED: cefTRIAXone SODIUM 1 GM in SODIUM CHL 0.9% 50ML MIN-BAG+ 50 ML IVPB ONE (08:21)
[2019-12-22] MEDS ORDERED: SODIUM CHL 0.9% 50ML MIN-BAG+ 50 ML IVPB ONE (08:27)
[2019-12-22] MEDS ORDERED: cefTRIAXone SODIUM 1 GM VIAL ONE (08:27)
--- NOTE | 2019-12-22 08:54 | RAD ---
EXAM DESCRIPTION: Chest,1 View CLINICAL HISTORY: COPD FINDINGS/ IMPRESSION: Comparison 11/02/2019 Normal heart size and mediastinal contour. Lungs are hyperinflated, emphysema. Mild perihilar peribronchial thickening, bronchitis No focal alveolar consolidation No pneumothorax. No acute bony abnormality Electronically signed by: Lee Mckeon MD 12/22/2019 8:52 AM [facility]
[2019-12-22] MEDS ORDERED: AZITHROMYCIN IV 500 MG in SODIUM CHLORIDE 0.9% 250ML 250 ML IVPB ONE (08:59)
[2019-12-22] MEDS ORDERED: SODIUM CHLORIDE 0.9% 250ML 250 ML ONE (09:01)
[2019-12-22] MEDS ORDERED: AZITHROMYCIN IV 500 MG VIAL IVPB ONE (09:01)
--- NOTE | 2019-12-22 09:05 | ED.PDOC ---
History of Present Illness - General Chief Complaint: Respiratory Problem Stated Complaint: shortness of breath Time Seen by Provider: 12/22/19 07:16 Source: patient Exam Limitations: no limitations - History of Present Illness Initial Comments: The patient is a 69-year-old male presented emergency room secondary to what appears to be another COPD exacerbation. The patient does have a history of significant COPD and does wear oxygen normally at 2 L. The patient reports that he is had an exacerbation going on for the last week with an increase in productive sputum. He is uncertain about fever. He does feel very short of breath. He does report doing his breathing treatments. His oxygen saturation 78% on the 2 L when EMS arrived. He did receive a Xopenex treatment with EMS and was put on a nonrebreather which did help correct the hypoxia. The patient is cooperative. He does have coarse rhonchi and wheezes that can be heard across the room. Air movement is markedly decreased from normal, but he is at least moving enough air to hear the abnormal sounds. He denies any runny nose or sore throat. No real chest pain except with cough. He does feel weak. He does think he is a little dehydrated. Again symptoms have been progressive over the last week. Timing/Duration: 1 week Severity: severe Improving Factors: nothing Worsening Factors: movement Associated Symptoms: cough, malaise, shortness of breath, weakness Allergies/Adverse Reactions: Allergies Alprazolam Allergy (Verified 12/22/19 07:26) Unknown Hydromorphone [From Dilaudid] Allergy (Verified 12/22/19 07:26) Unknown Home Medications: Ambulatory Orders Albuterol Sulfate Nebs [Proventil Nebs] 2.5 mg NEB Q4H PRN #120 vial 06/04/18 Fluticasone Furoate-Vilanterol [Breo Ellipta 100-25 Mcg/INH] 1 inh IN DAILY 07/06/19 Albuterol Sulfate [Proair Hfa] 2 puff INH Q6H PRN 10/28/19 Benzonatate Perles [Tessalon Perles] 200 mg PO Q8HR PRN #30 cap 10/28/19 Tiotropium [place] Monohydrate [Spiriva Handihaler] 18 mcg INH DAILY 10/28/19 Review of Systems - Review of Systems Constitutional: States: malaise EENTM: States: no symptoms reported Respiratory: States: cough, short of breath, wheezing Cardiology: States: no symptoms reported Gastrointestinal/Abdominal: States: no symptoms reported Genitourinary: States: no symptoms reported Musculoskeletal: States: no symptoms reported Skin: States: no symptoms reported Neurological: States: no symptoms reported Endocrine: States: no symptoms reported Hematologic/Lymphatic: States: no symptoms reported All other Systems: No Change from Baseline Past Medical History (General) - Patient Medical History Hx Seizures: Yes Hx Stroke: Yes Hx Asthma: Yes Hx of COPD: Yes Hx Cardiac Disorders: No Hx Congestive Heart Failure: No Hx Pacemaker: No Hx Hypertension: Yes Hx Thyroid Disease: No Hx Diabetes: No Hx Gastroesophageal Reflux: No Hx Renal Disease: No Hx Cancer: No Hx of HIV: No Hx Hepatitis C: No Hx MRSA: No - Vaccination History Hx Tetanus, Diphtheria Vaccination: No Hx Influenza Vaccination: No Hx Pneumococcal Vaccination: Yes - Social History Hx Tobacco Use: Yes Hx Alcohol Use: No Hx Substance Use: No Hx Substance Use Treatment: No Hx Depression: No Hx Physical Abuse: No Hx Emotional Abuse: No - Female History Patient is a Female of Child Bearing Age (10 -59 yrs old): No Patient : No - Triage Comment ED Triage Comment: pt transported into ED via EMS stretcher. pt on NRB with O2 sat at 100%. pt conversing appropriately and with ease. pt respirations even/shallow at this time. Family Medical History - Family History Mother Family History: Unknown Living Status: Unknown Hx Family;Other: Patient unable to remember this information at this time. Physical Exam - Physical Exam General Appearance: Alert, Obvious distress, Unkempt Eye Exam: bilateral normal Ears, Nose, Throat: hearing grossly normal, other - Poor dentition Neck: full range of motion, supple Respiratory: decreased breath sounds, accessory muscle use, rhonchi, wheezing Cardiovascular/Chest: normal peripheral pulses, no edema, tachycardia Peripheral Pulses: radial,right: 2+, radial,left: 2+ Gastrointestinal/Abdominal: non tender, soft Rectal Exam: deferred Back Exam: no CVA tenderness, no vertebral tenderness Extremity: non-tender, normal inspection, no pedal edema, normal capillary refill Neurologic: chief minister II-XII nml as tested, alert, normal mood/affect, oriented x 3 Skin Exam: normal color Comments: Vital Signs - 24 hr 12/22/19 12/22/19 12/22/19 07:17 07:19 07:39 Temperature 97.7 F Pulse Rate 115 H Pulse Rate [ 115 H 115 H brachial] Respiratory 22 22 Rate Blood Pressure 109/76 [Left Arm] O2 Sat by Pulse 100 98 Oximetry 12/22/19 12/22/19 07:42 08:06 Temperature 97.7 F Pulse Rate 111 H 103 H Pulse Rate [ 103 H brachial] Respiratory 23 20 Rate Blood Pressure 120/71 [Left Arm] O2 Sat by Pulse 97 97 Oximetry Progress - Progress Progress: 12/22/19 09:07 The patient is a 69-year-old male with a significant COPD exacerbation. Initial oxygenation on 2 L at his home was 78% with EMS. He received a Xopenex treatment with EMS in route and 2 DuoNeb treatments here. He is doing a little better, at least keeping oxygen saturations above 90% on 3 and half liters. Chest x-ray shows no obvious pneumonia but white blood cell count is elevated at 14,000. He does have a productive sputum which has been collected. The patient is being placed on Rocephin and azithromycin. Blood culture has been performed. He has received a dose of IV Solu-Medrol additionally. The patient is going to require a breathing treatment every hour to at least for the next day or 2. Obviously no smoking. Admit for continued care. He is also receiving low flow normal saline for mild dehydration related to the COPD exacerbation. No evidence of any CHF exacerbation at this time. [email or web address] [id number] - Results/Orders Results/Orders: Vital Signs - 24 hr 12/22/19 12/22/19 12/22/19 07:17 07:19 07:39 Temperature 97.7 F Pulse Rate 115 H Pulse Rate [ 115 H 115 H brachial] Respiratory 22 22 Rate Blood Pressure 109/76 [Left Arm] O2 Sat by Pulse 100 98 Oximetry 12/22/19 12/22/19 07:42 08:06 Temperature 97.7 F Pulse Rate 111 H 103 H Pulse Rate [ 103 H brachial] Respiratory 23 20 Rate Blood Pressure 120/71 [Left Arm] O2 Sat by Pulse 97 97 Oximetry Abnormal Lab Results 12/22/19 12/22/19 07:15 07:35 WBC 14.3 H RBC 3.98 L Hgb 11.1 L Hct 36.3 L MCHC 30.6 L RDW 18.1 H Absolute Neuts (auto) 8.60 H Absolute Monos (auto) 1.60 H Absolute Eos (auto) 1.90 H Absolute Basos (auto) 0.20 H Lymphocytes % 13.7 L Monocytes % 11.3 H Eosinophils % 13.6 H Anion Gap 11.4 L Laboratory Tests 12/22/19 12/22/19 12/22/19 07:15 07:15 07:35 WBC RBC Hgb Hct MCV MCH MCHC RDW Plt Count MPV Absolute Neuts (auto) Absolute Lymphs (auto) Absolute Monos (auto) Absolute Eos (auto) Absolute Basos (auto) Neutrophils % Lymphocytes % Monocytes % Eosinophils % Basophils % PT 10.1 INR 1.02 PTT (SP) 26.3 Sodium 143 Potassium 4.4 Chloride 107 Carbon Dioxide 29 Anion Gap 11.4 L BUN 16 Creatinine 0.89 BUN/Creatinine Ratio 18.0 Random Glucose 99 Serum Osmolality 286.2 Lactic Acid 0.8 Calcium 9.2 Magnesium 1.8 Total Bilirubin 0.4 AST 18 ALT 12 Alkaline Phosphatase 75 Creatine Kinase 86 CK-MB (CK-2) 4.2 CK-MB (CK-2) % Not Reportable Troponin I < 0.02 B-Natriuretic Peptide 43.0 Serum Total Protein 7.4 Albumin 3.9 Globulin 3.5 Albumin/Globulin Ratio 1.1 TSH 1.70 12/22/19 07:35 WBC 14.3 H RBC 3.98 L Hgb 11.1 L Hct 36.3 L MCV 91.3 MCH 28.0 MCHC 30.6 L RDW 18.1 H Plt Count 276 MPV 8.9 Absolute Neuts (auto) 8.60 H Absolute Lymphs (auto) 1.90 Absolute Monos (auto) 1.60 H Absolute Eos (auto) 1.90 H Absolute Basos (auto) 0.20 H Neutrophils % 60.0 Lymphocytes % 13.7 L Monocytes % 11.3 H Eosinophils % 13.6 H Basophils % 1.4 PT INR PTT (SP) Sodium Potassium Chloride Carbon Dioxide Anion Gap BUN Creatinine BUN/Creatinine Ratio Random Glucose Serum Osmolality Lactic Acid Calcium Magnesium Total Bilirubin AST ALT Alkaline Phosphatase Creatine Kinase CK-MB (CK-2) CK-MB (CK-2) % Troponin I B-Natriuretic Peptide Serum Total Protein Albumin Globulin Albumin/Globulin Ratio TSH Rapid flu was negative. Chest x-ray shows COPD. No obvious large infiltrate. No pneumothorax. No fluid overload. EKG shows sinus tachycardia at 112 bpm. Normal axis. Small Q waves in lead III. Borderline slow R wave progression. No ST segment or T wave changes indicative of acute ischemia. Mild left atrial dilation. Normal QT interval. Departure - Departure Clinical Impression: COPD with acute exacerbation Disposition: Admit Patient Condition: Serious Departure Forms: ED Discharge - Pt. Copy, Patient Portal Self Enrollment Referrals: Lee Maynard MD [Primary Care Provider] - 1-2 Weeks Home Medications: Ambulatory Orders Albuterol Sulfate Nebs [Proventil Nebs] 2.5 mg NEB Q4H PRN #120 vial 06/04/18 Fluticasone Furoate-Vilanterol [Breo Ellipta 100-25 Mcg/INH] 1 inh IN DAILY 07/06/19 Albuterol Sulfate [Proair Hfa] 2 puff INH Q6H PRN 10/28/19 Benzonatate Perles [Tessalon Perles] 200 mg PO Q8HR PRN #30 cap 10/28/19 Tiotropium [place] Monohydrate [Spiriva Handihaler] 18 mcg INH DAILY 10/28/19 Decision To Admit - Decistion To Admit Decision to Admit Reason: Medical Nature Decision to Admit Date: 12/22/19 Decision to Admit Time: 09:09
--- NOTE | 2019-12-22 09:29 | HP ---
SUPERVISING PHYSICIAN: Abraham Lane MD CHIEF COMPLAINT: Wheezing and shortness of breath. HISTORY OF PRESENT ILLNESS: Mr. Rashid is a 69-year-old male patient who presented to the Emergency Room today secondary to increased shortness of breath and questionable chronic obstructive pulmonary disease exacerbation. He does have a longstanding history of significant COPD and normally wears oxygen at home at 2 liters. He does endorse that he has been having exacerbation going on now for a little over a week with increasing productive sputum. He is not certain if he had a fever. He does have significant dyspnea with rest and has been utilizing albuterol updraft treatments. On arrival of EMS this morning with 2 liters nasal cannula, they reported saturation 78%. He was actually given a Xopenex treatment by EMS and put on a non-rebreather which did improve his clinical presentation. On initial presentation, the ER physician noted he had significantly coarse rhonchi with wheezing that could be audibly heard without auscultation of the chest. He had markedly decreased air movement with some tripoding and intercostal retraction. After several breathing treatments, his clinical presentation did improve and he was able to maintain O2 saturation with nasal cannula. Initial chest x-ray in the Emergency Room per radiologic interpretation showed some mild perihilar peribronchial thickening and bronchitis, but no focal alveolar consolidation. His initial laboratory studies showed CBC with leukocytosis of 14,300 with a left shift. Chemistries were essentially within normal limits with a normal lactic acid. He was started on antibiotics with Rocephin and azithromycin for his COPD exacerbation with concerns for developing community acquired pneumonia. He is now going to be admitted for treatment of exacerbation of chronic obstructive pulmonary disease. He was admitted in stable condition. PAST MEDICAL HISTORY: 1. Chronic obstructive pulmonary disease, O2 dependent. 2. Previous stroke with arteriovenous malformation repair with residual left sided weakness. 3. Dementia with depression. PAST SURGICAL HISTORY: 1. Cataract removal bilaterally. 2. Arteriovenous malformation coiling resulting in hemorrhagic stroke. CURRENT MEDICATIONS: 1. Spiriva Handihaler 18 mcg inhaled daily. 2. Breo Ellipta 100-25 mcg 1 inhaled daily. 3. Tessalon Perles 200 mg q.8h. p.r.n. 4. Albuterol nebulizers 2.5 mg q.4h. as needed. 5. Albuterol inhaler 2 puffs as needed q.6h. ALLERGIES: ALPRAZOLAM, HYDROMORPHONE. FAMILY HISTORY: Positive for chronic obstructive pulmonary disease and alcoholism. SOCIAL HISTORY: The patient is a current smoker. Unsure how long he has actually been smoking. He does not drink any alcohol, but does have a longstanding history of excessive alcohol in the past. 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 He is with three children. He lives by himself, but is cared for by his granddaughter. REVIEW OF SYSTEMS: CONSTITUTIONAL: Negative for any fevers, but positive chills. He is not sure if he has had any unintentional weight loss. HEENT: Chronic vision problems with the left eye due to past stroke and he wears a patch, but reports no vision in the right eye. Negative for sore throats, earaches. He does have some nasal congestion. He denies headaches. RESPIRATORY: Positive for cough, but no hemoptysis. He does have some wheezing reportedly with cough, but has not had much production. CARDIOVASCULAR: Negative for chest pain, palpitations, peripheral edema or syncopal episodes. GASTROINTESTINAL: Negative for nausea, vomiting, diarrhea, constipation or abdominal pain. GENITOURINARY: Negative for dysuria, hematuria, polyuria. NEUROLOGIC: Negative for syncopal episodes, seizures, paresthesias, ataxia or other focal deficits other than mentioned current residuals from stroke as noted in history of present illness, past medical history as well as HEENT findings. HEMATOLOGIC: No easy bruising, unexplained bleeding or transfusion reaction. SKIN: No reported rashes, lesions or unexplained changes. PHYSICAL EXAMINATION: VITAL SIGNS: Temperature on presentation to the Emergency Room was 97.7. He was tachycardic at 115 with respirations 22 to 28, saturation 100% on non- rebreather with blood pressure 109/76. Admission weight 57.7 kg. GENERAL: The patient appears to be well-nourished, well-hydrated at time of exam on the Medical/Surgical Floor. He is in no acute distress. He was alert. HEENT: He does wear an eye patch on the left eye. Tympanic membranes clear bilaterally. Oropharynx is pink, moist without any lesions. There is note of poor dentition. NECK: Supple, nontender with full range of motion. No jugular venous distention noted. RESPIRATORY: Decreased breath sounds throughout with no obvious rhonchi, wheezing or rales at time of admission to Medical/Surgical Floor. CARDIOVASCULAR: Regular rate and rhythm without any appreciable murmurs, gallops, or rubs. ABDOMEN: Soft, nontender. Positive bowel sounds. BACK: Without any CVA or vertebral tenderness. EXTREMITIES: There is no cyanosis, clubbing or edema. NEUROLOGIC: Cranial nerves II-XII are grossly intact as tested. Facial features are symmetrical. Extraocular movements are within normal limits expected for the patient with left eye patch and residual effects from previous hemorrhagic stroke. The patient is alert and oriented times three. SKIN: Warm, pink and dry. LABORATORY: CBC showed leukocytosis with white count 14,300, hemoglobin 11.9, hematocrit 36.3, platelet count 276,000. Differential did show a left shift. Coagulation studies showed normal PT, PTT. Chemistries were within normal limits. BUN 16, creatinine 16.8. Liver functions all within normal limits. Troponin less than 0.02. BNP normal at 43. Urinalysis unremarkable. MICROBIOLOGY: Influenza A and B by PCR negative. Blood cultures pending. Sputum culture pending. Urine culture pending. RADIOLOGY: Chest x-ray in the Emergency Room per radiologic interpretation of single view shows no focal alveolar consolidations, just hyperinflated lungs with emphysema and mild perihilar peribronchial thickening with bronchitis. ASSESSMENT: 1. Acute exacerbation of chronic obstructive pulmonary disease with concerns for developing community acquired pneumonia with bronchitis noted on x-ray initially. 2. Leukocytosis with concerns for developing community acquired pneumonia secondary to #1. 3. Chronic nicotine addiction in a current smoker. 4. Hypoxic respiratory failure secondary to #1 with the patient dependent on home O2. 5. History of dementia with depression. 6. History of previous cerebrovascular accident with left eye vision lesion, wearing a patch. 7. Chronic onychomycosis of both upper and lower extremity nail beds. PLAN: The patient is going to be admitted for initiation of treatment for acute exacerbation of chronic obstructive pulmonary disease. He will be on aggressive bronchial hygiene with breathing treatments. Blood cultures were collected. I started him on antibiotics and will continue with Rocephin and azithromycin. We will resume his home medications as those are updated and verified as appropriate to care. He is on DVT prophylaxis per protocol with Lovenox. At this point, he seems to be well hydrated. We will hold off on any additional IV fluids as he is taking oral intake adequately. He will remain on O2 as needed to maintain O2 saturations above 92%. I anticipate his length of stay to be at least two to three days. We will also put him on continued Solu-Medrol as he was given initial dose in the ER and we will do 40 mg IV q.12h. He will also be on Zyrtec for seasonal allergies as he did have quite high eosinophil count on his differential. Until the patient can transition to outpatient management, we will continue to monitor and treat as needed. #[id number] [facility]
[2019-12-22] MEDS ORDERED: ONDANSETRON INJ 4 MG/2 ML VIAL IV PRN (09:58)
[2019-12-22] MEDS ORDERED: IBUPROFEN 400 MG TAB PO PRN (09:58)
[2019-12-22] MEDS ORDERED: ALBUTEROL SULFATE 2.5 MG/3 ML VIAL NEB PRN (09:58)
[2019-12-22] MEDS ORDERED: ACETAMINOPHEN 325 MG TAB PO PRN (09:58)
[2019-12-22] MEDS ORDERED: MAGNESIUM HYDROXIDE 30 ML UD PO PRN (09:58)
[2019-12-22] MEDS ORDERED: IV SET AND CAP CHANGE INJ INJ SCH (10:00)
[2019-12-22] MEDS: IPRATROPIUM/ALBUTEROL 3 ML VIAL INH SCH ×3 (13:12→20:05)
[2019-12-22] MEDS ORDERED: PANTOPRAZOLE SODIUM IV 40 MG VIAL ONE (19:37)
[2019-12-22] MEDS: methylPREDNISolone SODIUM SUC 40 MG/ML VIAL IV SCH (20:31)
[2019-12-22] MEDS: SODIUM CHLORIDE 0.9% (FLUSH) 10 ML SYG IV PRN (20:32)
[2019-12-22] MEDS: ENOXAPARIN SODIUM 40 MG/0.4 ML SYG SUBCU SCH (20:32)
[2019-12-23] MEDS: PANTOPRAZOLE SODIUM IV 40 MG VIAL IV SCH (06:03)
--- NOTE | 2019-12-23 06:06 | RAD ---
EXAM: XR Chest, 2 Views CLINICAL HISTORY: The patient is 69 years old and is Male; Pneumonia TECHNIQUE: Frontal and lateral views of the chest. COMPARISON: Chest radiograph December 22, 2019 FINDINGS: LUNGS: The lungs are hyperinflated with coarse interstitial markings. There is no lobar consolidation. PLEURAL SPACE: Unremarkable. No pneumothorax. HEART: Unremarkable. No cardiomegaly. MEDIASTINUM: Unremarkable. BONES/JOINTS: Unremarkable. IMPRESSION: Stable chest. Electronically signed by: Lexy Hussein MD 12/23/2019 6:04 AM [facility]
[2019-12-23] MEDS: IPRATROPIUM/ALBUTEROL 3 ML VIAL INH SCH ×4 (07:30→21:06)
[2019-12-23] MEDS ORDERED: SODIUM CHL 0.9% 50ML MIN-BAG+ 50 ML IVPB ONE (09:16)
[2019-12-23] MEDS ORDERED: AZITHROMYCIN IV 500 MG VIAL IVPB ONE (09:16)
[2019-12-23] MEDS ORDERED: SODIUM CHLORIDE 0.9% 250ML 250 ML ONE (09:16)
[2019-12-23] MEDS ORDERED: cefTRIAXone SODIUM 1 GM VIAL ONE (09:16)
[2019-12-23] MEDS: methylPREDNISolone SODIUM SUC 40 MG/ML VIAL IV SCH ×2 (09:34→20:33)
[2019-12-23] MEDS: AZITHROMYCIN IV 500 MG in SODIUM CHLORIDE 0.9% 250ML 250 ML IVPB SCH (09:35)
[2019-12-23] MEDS: cefTRIAXone SODIUM 1 GM in SODIUM CHL 0.9% 50ML MIN-BAG+ 50 ML IVPB SCH (09:35)
[2019-12-23] MEDS ORDERED: NON-FORMULARY MEDICATION 1 EA MIS (Fluticasone Furoate-Vilanterol [Breo Ellipta 100-25 Mcg IN SCH (14:30)
--- NOTE | 2019-12-23 15:05 | PN ---
SUPERVISING PHYSICIAN: Abraham Lane MD DATE: 12/23/19 SUBJECTIVE: The patient is sitting up in bed. He continues to have some shortness of breath with exertion. He is also quite worried that he cannot afford his inhalers at home, which are Breo and Spiriva. Archana Javed, our social media specialist, is assisting him with getting his medications and we will try to find an affordable alternative for him. Otherwise, no constipation, abdominal pain, nausea, vomiting or chest pain. OBJECTIVE: VITAL SIGNS: Temperature 98.5. Heart rate 91. Blood pressure 121/60. Respiratory rate 20. O2 saturation 97% on 2 liters nasal cannula. RESPIRATORY: Scattered crackles throughout, diminished at the bases. CARDIAC: Regular rate and rhythm. GASTROINTESTINAL: Abdomen is soft, nondistended, nontender. Bowel sounds are positive. NEUROLOGIC: Awake, alert. He sometimes gets slightly confused with questioning, but is oriented to person and place. LABORATORY: WBCs improved to 9.8 with hemoglobin 9, hematocrit 29.5. He has a left shift on his differential. Electrolytes are basically within normal limits. BUN 23, creatinine 0.82. Preliminary blood cultures show no growth after 24 hours. Sputum culture pending. Urine culture pending. Chest x-ray shows stable chest. All other labs and films have been reviewed via the EMR. ASSESSMENT: 1. Acute exacerbation of chronic obstructive pulmonary disease with concerns for developing community acquired pneumonia with bronchitis noted on x-ray initially. 2. Leukocytosis with concerns for developing community acquired pneumonia secondary to #1. It has improved although he does have a left shift on his differential. 3. Chronic nicotine addiction in a current smoker. 4. Hypoxic respiratory failure secondary to #1 with the patient dependent on home O2. 5. History of dementia with depression. 6. 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 7. Chronic onychomycosis of both upper and lower extremity nail beds. PLAN: We will continue present supportive care. At this point his IV steroids are being titrated down and hopefully he can go on oral prednisone tomorrow. He does not want home health, but he does have Meals on Wheels and those have been stopped at this time while he is in the hospital. I have restarted his home medications and I will attempt to get him on some inhaler medications that he can afford. I will work with Archana Javed in doing that. I have ordered lab for in the morning. I have encouraged him to stop smoking as well as encouraged good pulmonary hygiene. We will continue to monitor the patient closely and follow as needed. #[id number] [facility]
[2019-12-23] MEDS: TIOTROPIUM INHALER INH SCH (15:58)
[2019-12-23] MEDS: SODIUM CHLORIDE 0.9% (FLUSH) 10 ML SYG IV PRN (20:30)
[2019-12-23] MEDS: ENOXAPARIN SODIUM 40 MG/0.4 ML SYG SUBCU SCH (20:31)
[2019-12-24] MEDS: PANTOPRAZOLE SODIUM IV 40 MG VIAL IV SCH (06:15)
[2019-12-24] MEDS ORDERED: AZITHROMYCIN IV 500 MG VIAL IVPB ONE (08:28)
[2019-12-24] MEDS ORDERED: SODIUM CHLORIDE 0.9% 250ML 250 ML ONE (08:28)
[2019-12-24] MEDS ORDERED: cefTRIAXone SODIUM 1 GM VIAL ONE (08:28)
[2019-12-24] MEDS ORDERED: SODIUM CHL 0.9% 50ML MIN-BAG+ 50 ML IVPB ONE (08:28)
[2019-12-24] MEDS: cefTRIAXone SODIUM 1 GM in SODIUM CHL 0.9% 50ML MIN-BAG+ 50 ML IVPB SCH (08:32)
[2019-12-24] MEDS: TIOTROPIUM INHALER INH SCH (08:35)
[2019-12-24] MEDS: IPRATROPIUM/ALBUTEROL 3 ML VIAL INH SCH ×3 (08:35→17:26)
[2019-12-24] MEDS ORDERED: predniSONE 20 MG TAB PO SCH (09:00)
[2019-12-24] MEDS: AZITHROMYCIN IV 500 MG in SODIUM CHLORIDE 0.9% 250ML 250 ML IVPB SCH (10:10)
[2019-12-24 14:23] VITALS: O2SAT 97
[2019-12-24 17:10] VITALS: BP 132/72; TEMP 98.5
--- NOTE | 2019-12-27 12:46 | DS ---
SUPERVISING PHYSICIAN: Abraham Lane MD DISCHARGE DIAGNOSES: 1. Acute exacerbation of chronic obstructive pulmonary disease with concerns for developing community acquired pneumonia with bronchitis noted on x-ray initially. 2. Leukocytosis with concerns for developing community acquired pneumonia secondary to #1. It has improved although he does have a left shift on his differential. 3. Chronic nicotine addiction in a current smoker. 4. Hypoxic respiratory failure secondary to #1 with the patient dependent on home O2. 5. History of dementia with depression. 6. 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 7. Chronic onychomycosis of both upper and lower extremity nail beds. HISTORY OF PRESENT ILLNESS: This is a 69-year-old male patient who presented to the Emergency Room secondary to increased shortness of breath and questionable chronic obstructive pulmonary disease exacerbation. He has a longstanding history of chronic obstructive pulmonary disease and he wears oxygen at home at 2 liters. He has been having symptoms with increasing productive sputum and shortness of breath for three weeks. He was unsure it he had a fever. He does have significant dyspnea with rest and had been utilizing his albuterol treatments. When he arrived to the hospital he was on 2 liters nasal cannula and his oxygen saturation was 78%. He was given a Xopenex treatment by EMS and then placed on a non-rebreather which improved his clinical presentation. The ER physician said he had wheezing that was audibly heard without auscultation of the chest. He had markedly decreased air movement with some tripoding and intercostal retraction. He got several breathing treatments and his clinical presentation did improve slightly and then was able to maintain O2 saturation in the low 90s with 2 liters nasal cannula. Initial chest x-ray showed mild perihilar peribronchial thickening and bronchitis but no focal alveolar consolidation. His initial laboratory studies showed CBC with leukocytosis of 14,300 with a left shift. Chemistries were essentially within normal limits, he had a normal lactic acid. He was started on Rocephin and azithromycin for his chronic obstructive pulmonary disease exacerbation and was admitted to the hospital in stable condition. HOSPITAL COURSE: He was placed on aggressive pulmonary hygiene that included scheduled and p.r.n. nebulizer treatments. His blood cultures were monitored, he was continued on the Rocephin and azithromycin. His home medications were restarted. He is on DVT prophylaxis with Lovenox. Over the next 2 days, his IV steroids were tapered until he was placed on p.o. prednisone. His work of breathing improved. He actually felt like he was at baseline. It is to be noted that [id number] were stopped while he was in the hospital and they were to be contacted to resume those. There was also question if he could afford his inhalers but after research, he needed a nebulizer machine and a prescription for him to go to [facility] to chart picker a nebulizer machine and he will be discharged in stable condition. LABORATORY: His followup WBC was 9,800 with a hemoglobin of 9 and hematocrit of 29.5. His electrolytes were basically within normal limits. His preliminary blood cultures showed no growth. His urine culture was still pending. His sputum culture was still pending. His final chest x-ray showed stable chest. DISCHARGE PLAN: The patient will be discharged home in stable condition. He is to resume his previous diet and increase his activity as tolerated. In addition to his home medication, he is to have azithromycin and Cefdinir as well as a prednisone taper. He has a followup appointment with Dr. Johnson, his primary care physician, on 12/29/2019 at 2:15 PM. At that time, it may be advisable for him to review his culture results as well as to make sure he has all of his inhalers and nebulizer treatments that he has been prescribed. He did termite control representative a prescription for a nebulizer machine. He did say that he would pick it up. He is to return to the hospital or call Dr. Johnson's office for any problems or complications. DISCHARGE MEDICATIONS: 1. Albuterol 2. Breo Ellipta . 3. ProAir HFA 4. Spiriva 5. Zithromax 6. Cefdinir. 7. Prednisone taper #[id number] [facility]
== END 2019-12-24 16:30 | disposition home or self-care (01) | DRG 190 ==
LOC: ER 07:05 → OBSVTOIN 09:25 → MS 09:25
PROVIDERS: ADMIT Nurse Practitioner Family; ATTEND Nurse Practitioner Acute Care
DX: J44.1 Chronic obstructive pulmonary disease with (acute) exacerbation (principal); J18.9 Pneumonia, unspecified organism; J96.91 Respiratory failure, unspecified with hypoxia; I69.354 Hemiplegia and hemiparesis following cerebral infarction affecting left non-dominant side; J44.0 Chronic obstructive pulmonary disease with (acute) lower respiratory infection; F03.90 Unspecified dementia, unspecified severity, without behavioral disturbance, psychotic disturbance, mood disturbance, and anxiety; F32.9 Major depressive disorder, single episode, unspecified; I69.398 Other sequelae of cerebral infarction; H54.62 Unqualified visual loss, left eye, normal vision right eye; B35.1 Tinea unguium; F17.210 Nicotine dependence, cigarettes, uncomplicated; Z99.81 Dependence on supplemental oxygen; Z88.5 Allergy status to narcotic agent; Z88.8 Allergy status to other drugs, medicaments and biological substances; Z79.899 Other long term (current) drug therapy

== ENCOUNTER 2020-03-01 15:51 | Inpatient (IN) | payer MEDICARE ==
[2020-03-01] MEDS ORDERED: IPRATROPIUM/ALBUTEROL 3 ML VIAL NEB ONE ×2 (15:59→16:02)
[2020-03-01] MEDS ORDERED: predniSONE 20 MG TAB PO ONE (16:02)
--- NOTE | 2020-03-01 16:39 | RAD ---
EXAM DESCRIPTION: Chest,1 View CLINICAL HISTORY: 69 years Male, copd ex[place] COMPARISON: Previous study December 23, 2019 TECHNIQUE: AP portable chest. FINDINGS: Heart size is normal with normal pulmonary vascularity. No consolidating infiltrate. No pulmonary mass or worrisome nodule. No pneumothorax or pleural effusion. Bones are unremarkable. IMPRESSION: No acute process is identified in the chest. Electronically signed by: Kirill Torres MD 03/01/2020 4:38 PM CDT
[2020-03-01] MEDS ORDERED: cefTRIAXone SODIUM 1 GM in SODIUM CHL 0.9% 50ML MIN-BAG+ 50 ML IVPB ONE (16:52)
[2020-03-01] MEDS ORDERED: ALBUTEROL SULFATE 2.5 MG/3 ML VIAL NEB ONE (16:57)
--- NOTE | 2020-03-01 17:12 | ED.PDOC ---
History of Present Illness - General Chief Complaint: Respiratory Problem Stated Complaint: shortness of breath Time Seen by Provider: 03/01/20 15:56 Source: patient Exam Limitations: no limitations - History of Present Illness Initial Comments: The patient is a 69-year-old male well-known to the emergency room presenting with another COPD exacerbation. The patient has end-stage lung disease and does have home oxygen therapy. The patient has been unable to control symptoms adequately at home and is even becoming hypoxic with his much as 4 L by nasal cannula. The patient is essentially a short inpatient so should have essentially very low risk for acquiring coronavirus. No fever. No productive cough. His only chest discomfort is from increased work of alessandra Spavistaing. No syncope. He does feel weak in general. The patient is tripoding. Significant accessory muscle use. Significant respiratory distress. He is tachypneic and currently upon arrival on 4 L nasal cannula he is 82%. Timing/Duration: unsure, 1 week Severity: severe Improving Factors: nothing Worsening Factors: movement Associated Symptoms: malaise, shortness of breath, weakness Allergies/Adverse Reactions: Allergies Alprazolam Allergy (Verified 12/22/19 07:26) Unknown Hydromorphone [From Dilaudid] Allergy (Verified 12/22/19 07:26) Unknown Home Medications: Ambulatory Orders Albuterol Sulfate Nebs [Proventil Nebs] 2.5 mg NEB Q4H PRN #120 vial 06/04/18 Fluticasone Furoate-Vilanterol [Breo Ellipta 100-25 Mcg/INH] 1 inh IN DAILY 07/06/19 Albuterol Sulfate [Proair Hfa] 2 puff INH Q6H PRN 10/28/19 Tiotropium [place] Monohydrate [Spiriva Handihaler] 18 mcg INH DAILY 10/28/19 Azithromycin Tab [Zithromax Tab] 250 mg PO QD #3 tab 12/24/19 Cefdinir 300 mg PO BID #24 capsule 12/24/19 predniSONE See Taper PO DAILY #30 tab 12/24/19 Review of Systems - Review of Systems Constitutional: States: malaise EENTM: States: no symptoms reported Respiratory: States: cough, short of breath, wheezing Cardiology: States: no symptoms reported Gastrointestinal/Abdominal: States: no symptoms reported Genitourinary: States: no symptoms reported Musculoskeletal: States: no symptoms reported Skin: States: no symptoms reported Neurological: States: no symptoms reported Endocrine: States: no symptoms reported All other Systems: No Change from Baseline Past Medical History (General) - Patient Medical History Hx Seizures: Yes Hx Stroke: Yes - hemmorrage Hx Asthma: Yes Hx of COPD: Yes Hx Cardiac Disorders: No Hx Congestive Heart Failure: No Hx Pacemaker: No Hx Hypertension: Yes Hx Thyroid Disease: No Hx Diabetes: No Hx Gastroesophageal Reflux: No Hx Renal Disease: No Hx Cancer: No Hx of HIV: No Hx Hepatitis C: No Hx MRSA: No - Vaccination History Hx Tetanus, Diphtheria Vaccination: No Hx Influenza Vaccination: No Hx Pneumococcal Vaccination: Yes - Social History Hx Tobacco Use: Yes Hx Alcohol Use: No Hx Substance Use: No Hx Substance Use Treatment: No Hx Depression: Yes Hx Physical Abuse: No Hx Emotional Abuse: No - Female History Patient : No Family Medical History - Family History Mother Family History: Unknown Living Status: Unknown Hx Family;Other: Patient unable to remember this information at this time. Physical Exam - Physical Exam General Appearance: Alert, Frail, Obvious distress, Ill Appearing Eye Exam: right normal, left other - Covered by patch. Long-term vision loss. Ears, Nose, Throat: hearing grossly normal, normal pharynx Neck: full range of motion, supple Respiratory: respiratory distress, decreased breath sounds, accessory muscle use, rhonchi, wheezing Cardiovascular/Chest: normal peripheral pulses, no edema, other - Regular rate Peripheral Pulses: radial,right: 2+, radial,left: 2+ Gastrointestinal/Abdominal: non tender, soft Rectal Exam: deferred Back Exam: no CVA tenderness, no vertebral tenderness Extremity: normal range of motion, non-tender, normal inspection, no pedal edema, normal capillary refill Neurologic: business operations manager II-XII nml as tested, alert, normal mood/affect - He is appropriately anxious, oriented x 3 Skin Exam: diaphoresis Comments: Vital Signs - 24 hr 03/01/20 03/01/20 03/01/20 15:55 16:30 16:35 Temperature 98.9 F Pulse Rate 98 H Pulse Rate [ 96 H 93 H left brachial] Respiratory 28 H 22 27 H Rate Blood Pressure 141/76 132/66 [left brachial] O2 Sat by Pulse 96 98 99 Oximetry Progress - Progress Progress: 03/01/20 17:15 The patient is a 69-year-old patient with end-stage COPD presenting with an a cute on chronic COPD exacerbation. The patient has received 3 breathing treatments here and is oxygenating better and breathing a little easier at this point. He will likely take several days of fairly aggressive pulmonary care in order to get to the point where he can go back home. The patient obviously needs education on how to do his own breathing treatments. He was given prednisone 40 mg here and has been started on Rocephin and azithromycin in IV form. Blood culture has been performed. Continue supplemental oxygen. Patient does have end-stage disease and prognosis is less than 6 months. No known coronavirus exposure. - Results/Orders Results/Orders: Chest x-ray shows changes of emphysema. No obvious pneumonia. EKG shows mild right axis deviation. Poor R wave progression. No ST segment or T wave changes indicative of acute ischemia. Laboratory Tests 03/01/20 03/01/20 03/01/20 15:37 15:37 16:23 WBC 12.7 H RBC 3.26 L Hgb 8.3 L Hct 27.8 L MCV 85.3 MCH 25.3 L MCHC 29.7 L RDW 19.5 H Plt Count 262 MPV 8.4 Absolute Neuts (auto) 8.20 H Absolute Lymphs (auto) 1.10 Absolute Monos (auto) 1.20 H Absolute Eos (auto) 2.00 H Absolute Basos (auto) 0.20 H Neutrophils % 64.7 Lymphocytes % 8.8 L Monocytes % 9.4 H Eosinophils % 15.7 H Basophils % 1.4 Sodium 138 Potassium 4.2 Chloride 104 Carbon Dioxide 27 Anion Gap 11.2 L BUN 14 Creatinine 0.87 BUN/Creatinine Ratio 16.1 Random Glucose 99 Serum Osmolality 276.2 Lactic Acid 1.2 Calcium 8.5 Total Bilirubin 0.3 AST 16 ALT 10 Alkaline Phosphatase 58 Creatine Kinase 59 CK-MB (CK-2) 3.9 CK-MB (CK-2) % Not Reportable Troponin I < 0.02 B-Natriuretic Peptide 43.6 Serum Total Protein 7.2 Albumin 4.1 Globulin 3.1 Albumin/Globulin Ratio 1.3 Departure - Departure Clinical Impression: Acute bronchitis with COPD, Respiratory distress Disposition: Admit Patient Condition: Poor Departure Forms: ED Discharge - Pt. Copy, Patient Portal Self Enrollment Referrals: Lee Johnson MD [Primary Care Provider] - 1-2 Weeks Home Medications: Ambulatory Orders Albuterol Sulfate Nebs [Proventil Nebs] 2.5 mg NEB Q4H PRN #120 vial 06/04/18 Fluticasone Furoate-Vilanterol [Breo Ellipta 100-25 Mcg/INH] 1 inh IN DAILY 07/06/19 Albuterol Sulfate [Proair Hfa] 2 puff INH Q6H PRN 10/28/19 Tiotropium [place] Monohydrate [Spiriva Handihaler] 18 mcg INH DAILY 10/28/19 Azithromycin Tab [Zithromax Tab] 250 mg PO QD #3 tab 12/24/19 Cefdinir 300 mg PO BID #24 capsule 12/24/19 predniSONE See Taper PO DAILY #30 tab 12/24/19 Decision To Admit - Decistion To Admit Decision to Admit Reason: Medical Nature Decision to Admit Date: 03/01/20 Decision to Admit Time: 17:16
[2020-03-01] MEDS ORDERED: cefTRIAXone SODIUM 1 GM VIAL ONE (17:36)
[2020-03-01] MEDS ORDERED: AZITHROMYCIN IV 500 MG VIAL IVPB ONE (17:36)
[2020-03-01] MEDS ORDERED: SODIUM CHLORIDE 0.9% 250ML 250 ML ONE (17:36)
[2020-03-01] MEDS ORDERED: SODIUM CHL 0.9% 50ML MIN-BAG+ 50 ML IVPB ONE (17:36)
[2020-03-01] MEDS: AZITHROMYCIN IV 500 MG in SODIUM CHLORIDE 0.9% 250ML 250 ML IVPB ONE ×2 (17:40→18:16)
--- NOTE | 2020-03-01 17:49 | HP ---
SUPERVISING PHYSICIAN: Jalil Ontiveros MD CHIEF COMPLAINT: Shortness of breath. HISTORY OF PRESENT ILLNESS: Mr. Rashid is a 69-year-old male patient with a longstanding history of chronic obstructive pulmonary disease. He presents to the Emergency Room today with a COPD exacerbation. It is noted that he does have extensive end-stage lung disease and wears O2 at home continually. He endorses that he was unable to get his shortness of breath under control at home and became hypoxic even on 4 liters nasal cannula. He is not complaining of any fevers, sputum production, chest pain, syncope. He does report some generalized weakness and has been tripoding and using accessory muscles. Actually on initial presentation, he had an O2 saturation of 82% on 4 liters nasal cannula. The duration of his symptoms have been going on for about a week, worsening within the last week. He endorses he has not had any exposure to anybody that has been sick and has been staying at home trying to socially isolate, only doing essential travel to the grocery store and such back and forth. His initial labs in the Emergency Room today showed white count 12,700, hemoglobin down to 8.3, hematocrit 27.8, platelet count 252,000. Differential did show a slight left shift. Chemistries were essentially within normal limits with BUN 14, creatinine 0.87, troponin less than 0.02 and BNP 43. Lactic acid was normal at 1.2. Influenza A and B by PCR was negative. Blood cultures were drawn. He was started on p.o. prednisone initially. He is now going to be admitted for exacerbation of his COPD with continued hypoxia in a patient that has known end-stage COPD, O2 dependent, that was saturating in the low 80s even on 4 liters nasal cannula. He was stable at time of presentation after breathing treatments and was showing O2 saturations on 3 to 4 liters of 93%. He was admitted in stable condition. PAST MEDICAL HISTORY: 1. Advanced chronic obstructive pulmonary disease, O2 dependent 2. Previous stroke for an arteriovenous malformation repair with residual left sided weakness and left sided vision changes. 3. Dementia with depression. PAST SURGICAL HISTORY: 1. Bilateral cataract removal. 2. Arteriovenous malformation coiling resulting in hemorrhagic stroke. CURRENT MEDICATIONS: 1. Spiriva Handihaler. 2. Brio Ellipta. 3. Albuterol nebulizers. 4. Ibuprofen p.r.n. ALLERGIES: ALPRAZOLAM, HYDROMORPHONE. FAMILY HISTORY: Positive for chronic obstructive pulmonary disease and alcoholism. SOCIAL HISTORY: The patient continues to smoke. He is not really sure how long he has smoked, but the majority of his life. He does not drink alcohol, but has a longstanding history of excessive alcohol usage in the past. 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 He lives by himself, but has a hearing aide technician in the form of his granddaughter. REVIEW OF SYSTEMS: CONSTITUTIONAL: Negative for any fevers, chills. He does have some general malaise and generalized weakness. No reported weight loss. HEENT: He has chronic vision problems on the left side due to past stroke and wears a patch, but reports no vision changes in his right eye. Negative for sore throats, earaches, headaches. He does have chronic nasal congestion. RESPIRATORY: Positive for cough, increasing weakness, but no hemoptysis. He has had some reported wheezing, but is not having productive cough. CARDIOVASCULAR: Negative for chest pain, palpitations. He does have some chest wall pain with coughing, but no peripheral edema or syncopal episodes. GASTROINTESTINAL: Negative for nausea, vomiting, diarrhea, constipation or abdominal pain. GENITOURINARY: Negative for dysuria, hematuria, polyuria. SKIN: Negative for lesions, rashes or unexplained changes. NEUROLOGIC: Negative for syncopal episodes, seizures, paresthesias, ataxia or other focal deficits other than mentioned residual from hemorrhagic stroke from arteriovenous malformation repair as noted in past history and chronic vision changes on the left as noted. HEMATOLOGIC: Denies easy bruising, unexplained bleeding or transfusion reactions. PHYSICAL EXAMINATION: VITAL SIGNS: Initially in the Emergency Room, on 4 liters nasal cannula, saturation was 82%. After breathing treatment, he improved to 93 to 96%. He was tachypneic between 28 and 34. Blood pressure initially was 141/76 with heart rate 92, temperature 98.9. Admission weight was 59.4 kg. GENERAL: He does looks frail, ill-appearing, advanced in age, but is alert and at time of exam on the Medical/Surgical Floor, is not in any acute distress. He resting comfortably. HEENT: Right eye shows normal extraocular movements. Left eye is covered with a patch with long-term vision loss. Oropharynx is pink, moist without any lesions. NECK: Supple, nontender with full range of motion. No jugular venous distention noted. RESPIRATORY: Breath sounds decreased throughout with some noted rhonchi and mild inspiratory and expiratory wheezing. No rales noted. CARDIOVASCULAR: Regular rate and rhythm without any appreciable murmurs, gallops, or rubs. ABDOMEN: Soft, nontender. Positive bowel sounds. BACK: No CVA tenderness or vertebral tenderness. EXTREMITIES: There is no cyanosis, clubbing or edema. NEUROLOGIC: Cranial nerves II-XII are grossly intact except for noted left eye vision problems post hemorrhagic stroke. He is alert and oriented times 3. Facial features are symmetrical. Extraocular movements are within normal limits in the right eye with residual left eye abnormalities. There is no nystagmus noted. SKIN: Warm, pink and dry. LABORATORY: White count showed some mild leukocytosis at 12,700, hemoglobin down to 8.3, hematocrit 27.8 with a mild microcytic/hypochromic presentation on RBC indices, but platelet count 262,000. Differential did show a left shift with no bands. Chemistry essentially within normal limits with BUN 14, creatinine 0.87, lactic acid normal at 1.2. Liver functions all within normal limits. Troponin less than 0.02. BNP 43.6. Urinalysis was pending. MICROBIOLOGY: Blood cultures completed in the ER prior to administration of antibiotics and his influenza A and B by PCR was negative for both A and B. COVID-19 testing was collected and pending. RADIOLOGY: Chest x-ray per radiologic interpretation showed no consolidated infiltrates, no pulmonary masses or worrisome nodules. No pneumothorax or pleural effusions. Please see that report for details. ASSESSMENT: 1. Acute exacerbation of chronic obstructive pulmonary disease with severe hypoxia in a patient chronically ill on O2 with end-stage chronic obstructive pulmonary disease in a current smoker with concerns for developing community acquired pneumonia. 2. Sepsis secondary to #1 with leukocytosis and the patient being tachypneic and mildly tachycardic on admission. 3. Microcytic/hypochromic anemia likely due to chronic illness with no mention of acute blood loss. 4. 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 PLAN: Given the fact that he has end-stage chronic obstructive pulmonary disease and had some severe hypoxia on O2 and cannot completely rule out developing underlying pneumonia, we will go ahead and start him on treatment for community acquired pneumonia with azithromycin and Rocephin. He was given oral prednisone in the ER, but we will go ahead and put him on some Solu-Medrol 40 mg q.6h. for 2 doses and reassess in the morning. We will resume his home medications as appropriate to care. He will be on DVT prophylaxis per protocol. He will be on Protonix for PPI protection. He will have albuterol inhaler and nebulizer treatments q.i.d. and p.r.n. He has been tested for COVID-19 just given current state of the pandemic and inability to completely rule out, but this man has been socially isolated. We will await those results. Otherwise, suspect his exposure is minimal and risk is very minimal. He will be in airborne isolation until the testing comes back. We will anticipate length of stay to be 2 to 3 days. Until the patient can transition to outpatient management, we will continue to monitor and treat as needed. [facility][id number] [facility]
[2020-03-01] MEDS ORDERED: SODIUM CHLORIDE 0.9% (FLUSH) 10 ML SYG IV PRN (18:11)
[2020-03-01] MEDS ORDERED: ONDANSETRON INJ 4 MG/2 ML VIAL IV PRN (18:11)
[2020-03-01] MEDS ORDERED: ACETAMINOPHEN 325 MG TAB PO PRN (18:11)
[2020-03-01] MEDS ORDERED: MAGNESIUM HYDROXIDE 30 ML UD PO PRN (18:11)
[2020-03-01] MEDS ORDERED: IV SET AND CAP CHANGE INJ INJ SCH (18:30)
[2020-03-01] MEDS ORDERED: ENOXAPARIN SODIUM 40 MG/0.4 ML SYG SUBCU SCH (21:00)
[2020-03-01] MEDS ORDERED: ALBUTEROL INHALER 64 PUFF/8GM INH PRN (22:15)
[2020-03-01] MEDS: ALBUTEROL INHALER 64 PUFF/8GM INH SCH (23:30)
[2020-03-01] MEDS: methylPREDNISolone SODIUM SUC 40 MG/ML VIAL IV SCH ×2 (23:44→23:48)
[2020-03-02] MEDS: methylPREDNISolone SODIUM SUC 40 MG/ML VIAL IV SCH (05:30)
[2020-03-02] MEDS: PANTOPRAZOLE SODIUM IV 40 MG VIAL IV SCH (05:30)
[2020-03-02] MEDS ORDERED: AZITHROMYCIN IV 500 MG VIAL IVPB ONE (07:24)
[2020-03-02] MEDS ORDERED: cefTRIAXone SODIUM 1 GM VIAL ONE (07:24)
[2020-03-02] MEDS ORDERED: SODIUM CHL 0.9% 50ML MIN-BAG+ 50 ML IVPB ONE (07:24)
[2020-03-02] MEDS ORDERED: SODIUM CHLORIDE 0.9% 250ML 250 ML ONE (07:24)
[2020-03-02] MEDS: ALBUTEROL INHALER 64 PUFF/8GM INH SCH ×4 (08:15→20:10)
[2020-03-02] MEDS ORDERED: FUROSEMIDE INJ 40 MG/4 ML VIAL IV ONE (08:21)
[2020-03-02] MEDS ORDERED: ACETAMINOPHEN 325 MG TAB PO ONE (08:21)
[2020-03-02] MEDS ORDERED: diphenhydrAMINE HCL 50 MG/ML VIAL IV ONE (08:21)
[2020-03-02] MEDS ORDERED: SODIUM CHLORIDE 0.9% 500ML 500 ML IVS SCH (08:30)
[2020-03-02] MEDS: cefTRIAXone SODIUM 1 GM in SODIUM CHL 0.9% 50ML MIN-BAG+ 50 ML IVPB SCH (08:30)
--- NOTE | 2020-03-02 08:43 | RAD ---
EXAM DESCRIPTION: Chest,1 View CLINICAL HISTORY: 69 years Male, Pneumonia COMPARISON: Radiograph of the chest dated 03/01/2020. TECHNIQUE: AP radiograph of the chest was obtained. FINDINGS: Trachea is midline.The cardiomediastinal silhouette is enlarged in size. Bilateral pulmonary vascular congestion. Bilateral lower lobe airspace opacities could represent atelectasis and/or pneumonia. IMPRESSION: Enlarged cardiac silhouette with pulmonary vascular congestion. Bilateral lower lobe airspace opacities could represent atelectasis and/or pneumonia. Electronically signed by: Lazara Muñoz MD 03/02/2020 8:41 AM CDT
[2020-03-02] MEDS: AZITHROMYCIN IV 500 MG in SODIUM CHLORIDE 0.9% 250ML 250 ML IVPB SCH (08:59)
--- NOTE | 2020-03-02 13:36 | PN ---
SUPERVISING PHYSICIAN: Jalil Ontiveros MD DATE: 03/02/20 SUBJECTIVE: The patient is sitting up in bed. He complains of shortness of breath and weakness. He is presently getting a blood transfusion. He is still under isolation precautions for COVID-19 and will need aggressive pulmonary hygiene. He denies chest pain, nausea or vomiting. OBJECTIVE: VITAL SIGNS: Temperature 97.5, heart rate 97, blood pressure 147/75, respiratory rate 22 to 24 breaths per minute. O2 saturation 94% on 2 liters nasal cannula. RESPIRATORY: Diminished throughout with some expiratory wheezing bilaterally. He is tachypneic and can only speak in 2 to 3 word phrases due to his shortness of breath with increased work of breathing. CARDIAC: Regular rate and rhythm. GASTROINTESTINAL: Abdomen is soft, nondistended, nontender. Bowel sounds are positive. NEUROLOGIC: Awake, alert and oriented times three. LABORATORY: WBCs 4,900, hemoglobin 7.6, hematocrit 24.9. He has a left shift on his differential. BMP is basically within normal limits with the exception of his calcium is slightly low at 8.2. His preliminary blood cultures are negative to date. We are still awaiting COVID testing. Chest x-ray shows enlarged cardiac silhouette with pulmonary vascular continue, bilateral lower lobe airspace opacities could represent atelectasis and/or pneumonia. All other labs and films have been reviewed via the EMR. ASSESSMENT: 1. Acute exacerbation of chronic obstructive pulmonary disease with severe hypoxia in a patient chronically ill on O2 with end-stage chronic obstructive pulmonary disease. 2. Bilateral community acquired pneumonia on the pneumonia guidelines and Rocephin and azithromycin. 3. Sepsis secondary to #1 and #2 with admitting leukocytosis. The patient continues to be tachypneic and at times tachycardic. 4. Microcytic/hypochromic anemia, likely due to chronic illness. He is requiring 2 units of packed red blood cells today. He has a history of transfusions. 5. High risk for COVID-19 due to his co-morbidities and age, awaiting testing results. 6. 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 PLAN: We will continue present supportive care. We are continuing to await his COVID-19 results. I have discontinued Lovenox and added SCDs for ulcer prophylaxis due to his blood loss. He is receiving 2 units of packed red blood cells and I will guaiac his stools x3. On discharge, he will need to see a GI specialist and at some point, we will need to talk to the family about hospice due to his poor outcomes as well as end-stage disease. I will taper his IV Solu-Medrol down and hopefully we can change him to oral prednisone in the next day or two. I ordered lab and chest x-ray in the morning. We will continue to monitor the patient closely and follow as needed. #[id number] [facility]
[2020-03-02] MEDS: methylPREDNISolone SODIUM SUC 125 MG/2 ML VIAL IV SCH ×2 (14:03→21:49)
[2020-03-02] MEDS ORDERED: methylPREDNISolone SODIUM SUC 40 MG/ML VIAL IV SCH (23:55)
[2020-03-03] MEDS: PANTOPRAZOLE SODIUM IV 40 MG VIAL IV SCH (06:01)
[2020-03-03] MEDS: methylPREDNISolone SODIUM SUC 125 MG/2 ML VIAL IV SCH (06:01)
--- NOTE | 2020-03-03 07:20 | RAD ---
EXAM: Chest,1 View HISTORY: copd COMPARISON: Chest one view 03/02/2020 TECHNIQUE: Chest one view portable AP upright FINDINGS: Bilateral lung hyperinflation reidentified. Mild hazy left lower lung field opacity again noted. Trachea midline. Heart size within normal limits. No significant pleural effusion or pneumothorax. IMPRESSION: 1. Moderate bilateral lung hyperinflation may represent asthma or emphysema. 2. Mild hazy left lower lung field opacity may represent subsegmental atelectasis or infection. Electronically signed by: Antonio Alvarez MD 03/03/2020 7:18 AM CDT
[2020-03-03] MEDS ORDERED: SODIUM CHLORIDE 0.9% 250ML 250 ML ONE (08:05)
[2020-03-03] MEDS ORDERED: cefTRIAXone SODIUM 1 GM VIAL ONE (08:06)
[2020-03-03] MEDS ORDERED: AZITHROMYCIN IV 500 MG VIAL IVPB ONE (08:06)
[2020-03-03] MEDS ORDERED: SODIUM CHL 0.9% 50ML MIN-BAG+ 50 ML IVPB ONE (08:06)
[2020-03-03] MEDS: predniSONE 20 MG TAB PO SCH (08:30)
[2020-03-03] MEDS: ALBUTEROL INHALER 64 PUFF/8GM INH SCH ×4 (08:30→20:00)
[2020-03-03] MEDS: cefTRIAXone SODIUM 1 GM in SODIUM CHL 0.9% 50ML MIN-BAG+ 50 ML IVPB SCH (08:30)
[2020-03-03] MEDS: AZITHROMYCIN IV 500 MG in SODIUM CHLORIDE 0.9% 250ML 250 ML IVPB SCH (09:25)
--- NOTE | 2020-03-03 10:50 | PN ---
SUPERVISING PHYSICIAN: Jalil Ontiveros MD DATE: 03/03/20 SUBJECTIVE: The patient is sitting up in bed. He says he feels much better since he got the blood. He is much less short of breath today. He denies nausea, vomiting or chest pain. OBJECTIVE: VITAL SIGNS: Temperature 97.6, heart rate 90, blood pressure 141/84, respiratory rate 20. O2 saturation 94% on 2 liters nasal cannula. RESPIRATORY: Diminished breath sounds throughout. CARDIAC: Regular rate and rhythm. GASTROINTESTINAL: Abdomen is soft, nondistended, nontender. Bowel sounds are positive. NEUROLOGIC: Awake, alert and oriented times three. LABORATORY: WBCs 11,200, hemoglobin 9.2, hematocrit 29.9. He has a left shift on differential. Electrolytes are basically within normal limits. Bilirubin is slightly elevated at 1.1. Preliminary blood cultures show no growth after 24 hours. COVID-19 testing is still pending. Chest x-ray shows 1) Moderate bilateral lung hyperinflation, may represent asthma or emphysema. 2) Mild hazy left lower lung field opacities may represent subsegmental atelectasis or infection. All other labs and films have been reviewed via the EMR. ASSESSMENT: 1. Acute exacerbation of chronic obstructive pulmonary disease with severe hypoxia in a patient chronically ill on O2 with end-stage chronic obstructive pulmonary disease. 2. Bilateral community acquired pneumonia on the pneumonia guidelines and Rocephin and azithromycin. 3. Sepsis secondary to #1 and #2 with admitting leukocytosis. The patient's respiratory status has improved. 4. Microcytic/hypochromic anemia, likely due to chronic illness. He received 2 units of packed red blood cells yesterday. 5. High risk for COVID-19 due to his co-morbidities and age, awaiting testing results. 6. 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 PLAN: We will continue present supportive care including his present antibiotics and monitor cultures as they become available. Hopefully, his COVID-19 testing will come back within the next day or so. His steroids have been titrated from IV to p.o. We will continue with good pulmonary hygiene. I have also ordered CBC for in the morning and he will need a followup with Dr. Johnson to discuss a possible GI consult. It may be also beneficial for him to have a hospice consultation with his poor prognosis. We will continue to monitor the patient closely and follow as needed. [id number]
[2020-03-04] MEDS: PANTOPRAZOLE SODIUM IV 40 MG VIAL IV SCH (05:58)
[2020-03-04] MEDS: ALBUTEROL INHALER 64 PUFF/8GM INH SCH ×3 (08:02→18:16)
[2020-03-04] MEDS ORDERED: SODIUM CHLORIDE 0.9% 250ML 250 ML ONE (09:18)
[2020-03-04] MEDS ORDERED: SODIUM CHL 0.9% 50ML MIN-BAG+ 50 ML IVPB ONE (09:19)
[2020-03-04] MEDS ORDERED: AZITHROMYCIN IV 500 MG VIAL IVPB ONE (09:19)
[2020-03-04] MEDS ORDERED: cefTRIAXone SODIUM 1 GM VIAL ONE (09:19)
[2020-03-04] MEDS: cefTRIAXone SODIUM 1 GM in SODIUM CHL 0.9% 50ML MIN-BAG+ 50 ML IVPB SCH (09:28)
[2020-03-04] MEDS: predniSONE 20 MG TAB PO SCH (09:28)
[2020-03-04] MEDS: AZITHROMYCIN IV 500 MG in SODIUM CHLORIDE 0.9% 250ML 250 ML IVPB SCH (10:14)
[2020-03-04] MEDS ORDERED: methylPREDNISolone SODIUM SUC 125 MG/2 ML VIAL IV ONE (11:41)
--- NOTE | 2020-03-04 13:14 | PN ---
SUPERVISING PHYSICIAN: Jalil Ontiveros MD DATE: 03/04/20 SUBJECTIVE: The patient is lying in bed asleep. He awakens easily. He feels like he has been more short of breath overnight and actually had some shortness of breath during the night. We also discussed that his COVID-19 results were back and they were negative and he would be moved out of isolation. He denies chest pain, nausea or vomiting, diarrhea or constipation. OBJECTIVE: VITAL SIGNS: Temperature 97.6, heart rate 78, blood pressure 136/72, respiratory rate 22. O2 saturation 97% on 2 liters nasal cannula. RESPIRATORY: Somewhat diminished at the bases. He does have a few expiratory wheezes in the apices as well as some scattered rhonchi. He also gets slightly tachypneic and short of breath with speaking. CARDIAC: Regular rate and rhythm. GASTROINTESTINAL: Abdomen is soft, nondistended, nontender. Bowel sounds are positive. NEUROLOGIC: Awake, alert and oriented times three. He is hard of hearing. LABORATORY: WBCs jumped to 17,700 with stable hemoglobin 9.2 and hematocrit 29.5. He has a left shift on differential. Preliminary blood cultures show no growth after 48 hours. COVID-19 testing is negative. All other labs and films have been reviewed via the EMR. ASSESSMENT: 1. Acute exacerbation of chronic obstructive pulmonary disease with severe hypoxia in a patient chronically ill on O2 with end-stage chronic obstructive pulmonary disease. 2. Bilateral community acquired pneumonia on the pneumonia guidelines and Rocephin and azithromycin. 3. Sepsis secondary to #1 and #2 with admitting leukocytosis. The patient's respiratory status has improved. 4. Microcytic/hypochromic anemia, likely due to chronic illness. He received 2 units of packed red blood cells yesterday. 5. High risk for COVID-19 due to his co-morbidities and age. He did negative results. 6. 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 PLAN: We will continue present supportive care including his antibiotics and continue to monitor cultures. I ordered some labs for in the morning and we will watch his WBCs closely. I have also given him a one-time dose of IV Solu- Medrol. Hopefully, that will improve his respiratory status. On discharge, it is recommended that hospice be considered given his poor prognosis and/or GI consult due to his anemia and need for blood transfusion. Otherwise, we will continue to monitor the patient closely and follow as needed. [id number]
[2020-03-04] MEDS ORDERED: methylPREDNISolone SODIUM SUC 125 MG/2 ML VIAL ONE (14:04)
[2020-03-04] MEDS ORDERED: IPRATROPIUM/ALBUTEROL 3 ML VIAL NEB ONE (16:07)
[2020-03-04] MEDS: IPRATROPIUM/ALBUTEROL 3 ML VIAL NEB SCH ×2 (16:18→20:00)
[2020-03-05 06:13] VITALS: BP 135/68; TEMP 97.9
[2020-03-05] MEDS: PANTOPRAZOLE SODIUM IV 40 MG VIAL IV SCH (06:18)
--- NOTE | 2020-03-05 06:28 | RAD ---
EXAM: Chest,2 Views HISTORY: Pneumonia COMPARISON: Chest one view 03/03/2020 TECHNIQUE: Chest one view AP FINDINGS: Heart size normal. Improved aeration at left lower lung field. No focal consolidation, pleural effusion, or pneumothorax. Mild bilateral lung hyperinflation again seen. Mild bilateral perihilar interstitial lung prominence again seen. No acute fracture. IMPRESSION: Bilateral lung hyperinflation again seen. Mild bilateral perihilar interstitial lung prominence again seen. This may be seen in COPD (emphysema and chronic bronchitis). Electronically signed by: Antonio Alvarez MD 03/05/2020 6:27 AM CDT
[2020-03-05] MEDS: IPRATROPIUM/ALBUTEROL 3 ML VIAL NEB SCH ×2 (08:20→13:20)
[2020-03-05] MEDS ORDERED: cefTRIAXone SODIUM 1 GM VIAL ONE (08:34)
[2020-03-05] MEDS ORDERED: SODIUM CHLORIDE 0.9% 250ML 250 ML ONE (08:34)
[2020-03-05] MEDS ORDERED: SODIUM CHL 0.9% 50ML MIN-BAG+ 50 ML IVPB ONE (08:34)
[2020-03-05] MEDS ORDERED: AZITHROMYCIN IV 500 MG VIAL IVPB ONE (08:34)
[2020-03-05 09:00] VITALS: O2SAT 96
[2020-03-05] MEDS: predniSONE 20 MG TAB PO SCH (09:40)
[2020-03-05] MEDS: cefTRIAXone SODIUM 1 GM in SODIUM CHL 0.9% 50ML MIN-BAG+ 50 ML IVPB SCH (09:40)
[2020-03-05] MEDS: AZITHROMYCIN IV 500 MG in SODIUM CHLORIDE 0.9% 250ML 250 ML IVPB SCH (10:15)
--- NOTE | 2020-03-06 12:58 | DS ---
SUPERVISING PHYSICIAN: Jalil Ontiveros MD DATE OF ADMISSION: 03/01/2020 DATE OF DISCHARGE: 03/05/2020 ADMISSION DIAGNOSES: 1. Acute exacerbation of chronic obstructive pulmonary disease with severe hypoxia in a patient chronically ill on O2 with end-stage chronic obstructive pulmonary disease in a current smoker with concerns for developing community acquired pneumonia. 2. Sepsis secondary to #1 with leukocytosis and the patient being tachypneic and mildly tachycardic on admission. 3. Microcytic/hypochromic anemia likely due to chronic illness with no mention of acute blood loss. 4. 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 DISCHARGE DIAGNOSES: 1. Acute exacerbation of chronic obstructive pulmonary disease with severe hypoxia in a patient chronically ill on O2 with end-stage chronic obstructive pulmonary disease. 2. Bilateral community acquired pneumonia with exacerbation of chronic obstructive pulmonary disease treated with Rocephin and azithromycin and showing good response to treatment. 3. Sepsis secondary to #1 and #2 with admitting leukocytosis. The patient's respiratory status has improved. 4. Microcytic/hypochromic anemia, due to chronic illness. He received 2 units of packed red blood cells during hospitalization. 5. COVID-19 due to co-morbidities and age with negative results. 6. 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 REASON FOR HOSPITALIZATION: Mr. Rashid is a 69-year-old male patient with a longstanding history of chronic obstructive pulmonary disease. He presents to the Emergency Room today with a COPD exacerbation. It is noted that he does have extensive end-stage lung disease and wears O2 at home continually. He endorses that he was unable to get his shortness of breath under control at home and became hypoxic even on 4 liters nasal cannula. He is not complaining of any fevers, sputum production, chest pain, syncope. He does report some generalized weakness and has been tripoding and using accessory muscles. Actually on initial presentation, he had an O2 saturation of 82% on 4 liters nasal cannula. The duration of his symptoms have been going on for about a week, worsening within the last week. He endorses he has not had any exposure to anybody that has been sick and has been staying at home trying to socially isolate, only doing essential travel to the grocery store and such back and forth. His initial labs in the Emergency Room today showed white count 12,700, hemoglobin down to 8.3, hematocrit 27.8, platelet count 252,000. Differential did show a slight left shift. Chemistries were essentially within normal limits with BUN 14, creatinine 0.87, troponin less than 0.02 and BNP 43. Lactic acid was normal at 1.2. Influenza A and B by PCR was negative. Blood cultures were drawn. He was started on p.o. prednisone initially. He is now going to be admitted for exacerbation of his COPD with continued hypoxia in a patient that has known end-stage COPD, O2 dependent, that was saturating in the low 80s even on 4 liters nasal cannula. He was stable at time of presentation after breathing treatments and was showing O2 saturations on 3 to 4 liters of 93%. He was admitted in stable condition. LABORATORY: Discharge white count 13,000, hemoglobin 9.2, hematocrit 29.9 after a low of hemoglobin 7.6, hematocrit 24.9. He did receive 2 units of packed red blood cells. Discharge platelet count 200,000 and differential did show a left shift. Chemistries showed normal electrolytes on discharge with BUN of 24, creatinine 0.89, calcium 8.6, magnesium 2.0, total bilirubin slightly elevated at 1.1, otherwise everything else was within normal limits. Urinalysis within normal limits. MICROBIOLOGY: COVID-19 testing was negative. Influenza A and B by PCR was negative. Blood cultures remained negative after four days. RADIOLOGY: Final chest x-ray on discharge per radiology interpretation showed bilateral lung hyperinflation, again seen was mild bilateral perihilar interstitial lung prominence. See those reports for details. EKG on admission 12 lead, showed sinus rhythm but no acute ST or T-wave changes. HOSPITAL COURSE: Mr. Rashid was admitted for acute respiratory failure with hypoxia, being oxygen dependent. He was treated for community acquired pneumonia and exacerbation of chronic obstructive pulmonary disease with antibiotics consisting of Rocephin and azithromycin and Solu-Medrol and p.o. prednisone. Given his advanced end-stage chronic obstructive pulmonary disease, he did respond but slowly and on date of discharge was showing to be stable and clinically improved well enough to continue with outpatient management. DISCHARGE ASSESSMENT: VITAL SIGNS: Temperature 97.9, pulse 74, blood pressure 135/68, respirations 18, oxygen saturation 96% on 2-liter nasal cannula. GENERAL: The patient was resting comfortably, did not appear to be in any acute distress. RESPIRATORY: Chest sounds were just a little diminished toward the bases. No wheezing or rhonchi was noted. HEART: Regular rate and rhythm. ABDOMEN: Soft, non-tender, positive bowel sounds. EXTREMITIES: Without edema. NEUROLOGIC: He was alert and oriented x 3. PLAN: Mr. Rashid was discharged on 03/05/20. He did finish a full course of azithromycin but was continued on antibiotic overage with Omnicef for another 5 days, 300 mg twice a day. He was to continue with a tapered dose of prednisone 10 mg tablets over 10 days awaiting followup in the clinic. He was instructed to wear his oxygen as previous hospitalization to maintain his 02 levels. Increase activity as tolerated. Diet: resume normal diet as tolerated. Given his end-stage chronic obstructive pulmonary disease, there was some discussion whether or not hospice was warranted, however, at this point, patient is not interested. He does have home health with [facility]. DISCHARGE MEDICATIONS: Continue as prior hospitalization except for the addition of the Omnicef 300 mg b.i.d. for 5 days, no refills, as well as prednisone tapering dose, 10 mg tablets starting at 40 mg, taper to 10 mg over 10 days. CONDITION ON DISCHARGE: Stable and improved. DISPOSITION: Patient was discharged to home to care of [facility]. [id number]
== END 2020-03-05 13:10 | disposition home health service (06) | DRG 871 ==
LOC: ER 15:51 → INTOOBSV 17:47 → UNDOADMOB 17:47 → MS 17:47 → OBSVTOIN 17:47 → MS 03-04 23:25
PROVIDERS: ADMIT Nurse Practitioner Family; ATTEND Nurse Practitioner Family
PROC: 30233N1 Transfusion of Nonautologous Red Blood Cells into Peripheral Vein, Percutaneous Approach (ICD-10-PCS; principal; 2020-03-02)
DX: A41.9 Sepsis, unspecified organism (principal); J96.01 Acute respiratory failure with hypoxia; J18.9 Pneumonia, unspecified organism; J44.1 Chronic obstructive pulmonary disease with (acute) exacerbation; I69.354 Hemiplegia and hemiparesis following cerebral infarction affecting left non-dominant side; J44.0 Chronic obstructive pulmonary disease with (acute) lower respiratory infection; F17.210 Nicotine dependence, cigarettes, uncomplicated; I10 Essential (primary) hypertension; D50.9 Iron deficiency anemia, unspecified; Z11.59 Encounter for screening for other viral diseases; Z99.81 Dependence on supplemental oxygen; F03.90 Unspecified dementia, unspecified severity, without behavioral disturbance, psychotic disturbance, mood disturbance, and anxiety; F32.9 Major depressive disorder, single episode, unspecified; Z88.5 Allergy status to narcotic agent; Z88.8 Allergy status to other drugs, medicaments and biological substances; Z79.899 Other long term (current) drug therapy

== ENCOUNTER → 2020-03-11 | Outpatient (CLI) | payer MEDICARE ==
--- NOTE | 2020-03-11 16:52 | RAD ---
EXAM DESCRIPTION: Chest,2 Views CLINICAL HISTORY: COPD J44.1 COMPARISON: Previous chest x-ray March 05, 2015 TECHNIQUE: PA/lateral FINDINGS: There is no acute appearing cardiac or pulmonary abnormality. Heart size is normal with normal pulmonary vascularity. No pleural effusion or pneumothorax. Lungs are clear with no consolidating infiltrate. Lateral view shows intact sternum and T-spine. Lungs appear hyperexpanded on lateral view. Degenerative spurring in the T-spine with old mid thoracic partial compression. Blunting the posterior costophrenic angles could be pleural scarring or small effusions. Similar appearance on previous study. IMPRESSION: No consolidating infiltrate. Electronically signed by: Kirill Torres MD 03/11/2020 4:51 PM CDT
== END ==
LOC: RAD 16:04
PROVIDERS: ATTEND Family Medicine
DX: J44.1 Chronic obstructive pulmonary disease with (acute) exacerbation (principal)

== ENCOUNTER → 2020-03-16 | Outpatient (CLI) | payer MEDICARE | LOC: BFHH 13:34 | PROVIDERS: ATTEND Family Medicine | DX: J44.1 Chronic obstructive pulmonary disease with (acute) exacerbation (principal); I69.354 Hemiplegia and hemiparesis following cerebral infarction affecting left non-dominant side; Z87.01 Personal history of pneumonia (recurrent) ==

== ENCOUNTER → 2020-03-19 | Outpatient (CLI) | payer MEDICARE ==
--- NOTE | 2020-03-22 12:12 | CT ---
EXAM DESCRIPTION: Chest w/o Contrast : Computed Tomography. CLINICAL HISTORY: 69 years Male solitary pulmonary nodule COMPARISON: Low-dose CT lung cancer screening examination November 2018. CTA chest June 2019. TECHNIQUE: Spiral-axial scans at 2.5 x 2.5 mm intervals, low-dose technique, through the lungs and thorax without IV contrast. 45 MA. 120.0 KVP. Coronal and sagittal 6.0 Mm MIP reconstructions. Total Exam DLP: 62 mGy-cm. This exam was performed according to our departmental dose-optimization program which includes automated exposure control, adjustment of the mA and/or kV according to patient size and/or use of iterative reconstruction technique; to reduce radiation dose to as low as reasonably achievable (ALARA). Nodule measurements under 10 mm are given as mean value of 3 axes diameters. FINDINGS: Lungs and large Airways: focal dense tissue in the posterior subpleural right apex again noted with central air density inferiorly and also associated with posterior apical pleura. Similar area much smaller abutting the pleura in the subpleural right lateral upper lobe is stable. Similar stable pleural/subpleural nodule medial posterior left apex. Pleural parenchymal scarring bilaterally. Bilateral centrilobular distribution of emphysematous blebs in the upper lobes more prominently, is stable. No new nodules or mass. No acute infiltrate. Pleural spaces: Bilateral pleural thickening prominent in the apices unchanged. Mediastinum and [place]: Evaluation limited due to lack of IV contrast stable paratracheal and azygous nodes with other smaller nodes area no dominant soft tissue mass. Great vessels and Heart: Evaluation limited due to lack of IV contrast. Atherosclerotic calcifications in the coronary arteries several brachiocephalic vessels and the aorta unchanged. Soft tissues of neck base, axillae, and chest wall: Evaluation limited due to lack of IV contrast. Small nodes with normal morphology and stable. Upper abdomen: No free fluid or free air. Vascular calcifications. Osseous structures: Spondylosis thoracic spine arthrosis sternomanubrial joint sternoclavicular joints and glenohumeral joints. IMPRESSION: 1. Stable nodular densities associated with pleural thickening in the right upper lobe and left upper lobe are stable. No new abnormal nodules or masses. No acute infiltrate. No change in centrilobular emphysema. Stable since the prior two chest CT scans. [employer] [facility] Best Practice guidelines utilizing lung RADS criteria: CATEGORY 2- Nodules with a very low likelihood (less than 1%) of becoming a clinically active cancer due to size or lack of growth. Nodules: Perifissural nodule(s) < 10 mm. (526mm3). Solid or part solid nodule(s) less than 6mm (113.1 mm3), new solid nodule less than 4mm (33.5 mm3). Ground glass nodule(s) less than 30mm (34857.2 mm3) or unchanged or slow growing ground glass nodule 30mm or greater. Cat 3 or 4 nodule unchanged for 3 or more months. FOLLOW-UP: Continue annual screening with a Low Dose Chest CT in 12 months for re-evaluation. Electronically signed by: Erick Harman MD 03/22/2020 12:10 PM CDT
== END ==
LOC: CT 11:00
PROVIDERS: ATTEND Family Medicine
DX: R91.8 Other nonspecific abnormal finding of lung field (principal)

== ENCOUNTER 2020-05-20 15:35 | Emergency (ER) | payer MEDICARE ==
[2020-05-20] MEDS ORDERED: SODIUM CHLORIDE 0.9% (FLUSH) 10 ML SYG IV PRN (15:46)
[2020-05-20] MEDS ORDERED: IPRATROPIUM/ALBUTEROL 3 ML VIAL INH ONE (15:46)
[2020-05-20] MEDS ORDERED: methylPREDNISolone SODIUM SUC 125 MG/2 ML VIAL IV ONE (15:48)
--- NOTE | 2020-05-20 15:53 | ED.PDOC ---
History of Present Illness - General Time Seen by Provider: 05/20/20 15:39 Source: patient, RN notes reviewed, Vital Signs reviewed, family, RN/MD, old records Exam Limitations: no limitations - History of Present Illness Initial Comments: Patient is a 69-year-old male with a history of end stage COPD on 3.5 L oxygen by nasal cannula continuously. States for the past week he has had worsening of his COPD with wheezing, nonproductive cough and feeling short of breath. He has been taking breathing treatments at home with some improvement. He denies fever, chest pain, nausea or vomiting. Family states that he has had a headache for the past 2 days and has a history of arteriovenous malformations that have caused a stroke in the past. He denies any change in speech weakness or any neuro deficits. Allergies/Adverse Reactions: Allergies Alprazolam Allergy (Verified 03/01/20 19:38) Unknown Hydromorphone [From Dilaudid] Allergy (Verified 03/01/20 19:38) Unknown Home Medications: Ambulatory Orders Albuterol Sulfate Nebs [Proventil Nebs] 2.5 mg NEB Q4H PRN #120 vial 06/04/18 Albuterol Sulfate [Proair Hfa] 2 puff INH Q6H PRN 10/28/19 Fluticasone Furoate-Vilanterol [Breo Ellipta 200-25 Mcg/INH] 1 inh IN DAILY 03/01/20 Ibuprofen 400 mg PO Q6H PRN 03/01/20 Tiotropium [place] Monohydrate [Spiriva Respimat] 2.5 mcg IN DAILY 03/01/20 Cefdinir [Omnicef] 300 mg PO BID #10 cap 03/05/20 Prednisone See Taper PO DAILY #30 tab 03/05/20 Prednisone 60 mg PO DAILY 5 Days #15 tab 05/20/20 Review of Systems - Review of Systems Constitutional: Denies: chills, fever, weakness EENTM: Denies: blurred vision, nose congestion, throat pain Respiratory: States: cough, short of breath, wheezing Cardiology: Denies: chest pain, edema, palpitations, syncope Gastrointestinal/Abdominal: Denies: abdominal pain, nausea, vomiting Musculoskeletal: Denies: back pain, joint pain, neck pain Neurological: States: headache. Denies: paresthesia, weakness All other Systems: Reviewed and Negative Past Medical History (General) - Patient Medical History Hx Seizures: No Hx Stroke: No Hx Asthma: No Hx of COPD: Yes Hx Cardiac Disorders: No Hx Congestive Heart Failure: No Hx Pacemaker: No Hx Hypertension: No Hx Thyroid Disease: No Hx Diabetes: No Hx Gastroesophageal Reflux: No Hx Renal Disease: No Hx Cancer: No Hx of HIV: No Hx Hepatitis C: No Hx MRSA: No - Vaccination History Hx Tetanus, Diphtheria Vaccination: No Hx Influenza Vaccination: No Hx Pneumococcal Vaccination: Yes - Social History Hx Tobacco Use: Yes Hx Alcohol Use: No Hx Substance Use: No Hx Substance Use Treatment: No Hx Depression: Yes Hx Physical Abuse: No Hx Emotional Abuse: No - Female History Patient : No Family Medical History - Family History Mother Family History: Unknown Living Status: Hx Family;Other: Patient unable to remember this information at this time. Father Family History: Unknown Living Status: Physical Exam - Physical Exam General Appearance: Alert, Other - Mild distress, tachypneic Eyes, Ears, Nose, Throat Exam: pharynx normal Neck: full range of motion, supple Respiratory: chest non-tender, other - Mild distress, tachypneic. He has diffuse expiratory wheezes in all lung prabhakar. Speaks in 3-4 word sentences. Cardiovascular/Chest: no edema, tachycardia Gastrointestinal/Abdominal: non tender, soft, no pulsatile mass Extremity: normal range of motion, non-tender, no pedal edema Neurologic: rhit II-XII nml as tested, no motor/sensory deficits, alert, normal mood/affect, oriented x 3 Skin Exam: normal color, warm/dry Progress - Progress Progress: 05/20/20 15:55 Patient has known history of end-stage COPD on oxygen at home. Has been more short of breath with wheezing for the past week. Presents with symptoms of his typical COPD exacerbation. Differential diagnosis includes COPD, CHF, pneumonia, bronchitis, viral syndrome 05/20/20 17:47 Recheck patient. He states he is feeling improved after 3 breathing treatments. On exam he has no respiratory distress or tachypnea. He now has good air movement but continues to have expiratory wheezes. He is on his usual 3.5 L nasal cannula and is satting 98 to 100%. I have discussed lab and imaging fin kenn. I have offered patient admission for continued breathing treatments and therapies, but patient states he feels at his baseline and would prefer to go home. He has oxygen and a nebulizer machine at home he can use and I will start patient on short course of steroids for COPD exacerbation. 05/20/20 18:10 Patient continues to feel improved and is requesting to go home because he is hungry. His O2 sats are 97 to 98% and he is down to 2 L nasal cannula. COVID- 19 test was negative. I have discussed with patient to continue his albuterol treatments and inhalers at home and will start a short course of steroids. He will follow-up with his primary care doctor within 2 days for continued outpatient evaluation. Strict return precautions given. - Results/Orders Results/Orders: EKG- sinus tachycardia, rate 107, nml intervals, nonspecific ST abnormality CHEST XRAY EXAM DESCRIPTION: Chest,1 View CLINICAL HISTORY: short of breath COMPARISON: 11 Mar 2020 TECHNIQUE: AP portable chest FINDINGS: The lungs are clear. There is no infiltrate or effusion. The heart is normal size. IMPRESSION: Normal portable chest CT BRAIN IMPRESSION: Prominent ventricles similar to previous study. Compared to previous study, no significant change to suggest an acute intracranial process. See above. 05/20/20 16:00 EKG STAT 05/20/20 16:10 BLOOD CULTURE Stat 05/20/20 16:12 RESPIRATORY PANEL 2 Stat Laboratory Results - last 24 hr 05/20/20 05/20/20 16:10 16:10 WBC 12.0 H RBC 3.49 L Hgb 8.1 L Hct 27.5 L MCV 78.9 L MCH 23.2 L MCHC 29.4 L RDW 19.3 H Plt Count 330 MPV 8.2 Absolute Neuts (auto) 8.40 H Absolute Lymphs (auto) 1.10 Absolute Monos (auto) 1.20 H Absolute Eos (auto) 1.20 H Absolute Basos (auto) 0.10 Neutrophils % 69.9 Lymphocytes % 8.8 L Monocytes % 10.1 H Eosinophils % 10.0 H Basophils % 1.2 Sodium 138 Potassium 4.5 Chloride 104 Carbon Dioxide 27 Anion Gap 11.5 L BUN 8 Creatinine 0.85 BUN/Creatinine Ratio 9.4 L Random Glucose 124 H Serum Osmolality 275.4 Calcium 8.6 Total Bilirubin 0.4 AST 17 ALT 12 Alkaline Phosphatase 76 B-Natriuretic Peptide 64.3 Serum Total Protein 7.7 Albumin 4.0 Globulin 3.7 H Albumin/Globulin Ratio 1.1 Departure - Departure Clinical Impression: COPD with exacerbation Dyspnea Qualifiers: Dyspnea type: shortness of breath Qualified Code(s): R06.02 - Shortness of breath Anemia Qualifiers: Anemia type: unspecified type Qualified Code(s): D64.9 - Anemia, unspecified Time of Disposition: 18:12 Disposition: Discharge to Home or Self Care Condition: Good Instructions: Chronic Obstructive Pulmonary Disease (COPD) (DC) Diet: resume usual diet Activity: increase activity as tolerated Referrals: Lee Johnson MD [Primary Care Provider] - 1-2 Days Prescriptions: Prednisone 60 mg PO DAILY 5 Days #15 tab Home Medications: Ambulatory Orders Albuterol Sulfate Nebs [Proventil Nebs] 2.5 mg NEB Q4H PRN #120 vial 06/04/18 Albuterol Sulfate [Proair Hfa] 2 puff INH Q6H PRN 10/28/19 Fluticasone Furoate-Vilanterol [Breo Ellipta 200-25 Mcg/INH] 1 inh IN DAILY 03/01/20 Ibuprofen 400 mg PO Q6H PRN 03/01/20 Tiotropium [place] Monohydrate [Spiriva Respimat] 2.5 mcg IN DAILY 03/01/20 Cefdinir [Omnicef] 300 mg PO BID #10 cap 03/05/20 Prednisone See Taper PO DAILY #30 tab 03/05/20 Prednisone 60 mg PO DAILY 5 Days #15 tab 05/20/20
--- NOTE | 2020-05-20 16:11 | RAD ---
EXAM DESCRIPTION: Chest,1 View CLINICAL HISTORY: short of breath COMPARISON: 11 Mar 2020 TECHNIQUE: AP portable chest FINDINGS: The lungs are clear. There is no infiltrate or effusion. The heart is normal size. IMPRESSION: Normal portable chest Electronically signed by: Daron Dacosta MD 05/20/2020 4:09 PM CDT
--- NOTE | 2020-05-20 17:31 | CT ---
EXAM DESCRIPTION: CT head without contrast CLINICAL HISTORY: headache COMPARISON: Previous CT head July 20, 2017 TECHNIQUE: Noncontrast head CT was performed with routine protocol. FINDINGS: Low density in the medial right temporal lobe could be beam hardening artifact or loss of density due to subacute infarction. Prominent sulcus or old infarction of the left cerebellar hemisphere. Coronal CT images show low signal intensity with linear configuration consistent with streak artifact affecting both medial temporal lobes. Therefore artifact is favored over subacute or chronic infarction of the medial right temporal lobe. Decreased density of the white matter consistent with chronic microvascular ischemic disease. Vascular coils with metal artifacts in the left ventricular region. Ventricles and sulci are prominent consistent with age-related cerebral volume loss. Ventricular prominence appears slightly increased on the left compared to previous study. The biventricular frontal diameter 5.1 cm on the present study compares to a previous measurement of 5.0 cm. Underdevelopment or chronic mastoiditis of the right mastoid air cells. No high density hemorrhage, focal edema or shift of the midline. No sulcal effacement. Normal orbital contents. Basilar cisterns appear clear. Intact calvarium with no fracture or lytic lesion. Normal aeration of tympanic cavities and left mastoid air cells. No fluid levels in the paranasal sinuses. Skull base appears intact. Symmetrical internal auditory canals. No significant change compared to the previous study. Coronal and sagittal reformatted images confirm the findings. Fourth ventricle appears prominent on the sagittal images. This was prominent on previous studies as well. Generalized atrophy is favored over normal pressure hydrocephalus. Clinical correlation recommended. IMPRESSION: Prominent ventricles similar to previous study. Compared to previous study, no significant change to suggest an acute intracranial process. See above. This exam was performed according to our departmental dose-optimization program, which includes automated exposure control, adjustment of the mA and/or kV according to patient size and/or use of iterative reconstruction technique. Total DLP equals 859.97 mGycm. Electronically signed by: Kirill Torres MD 05/20/2020 5:29 PM CDT
[2020-05-20 18:12] VITALS: BP 148/71; O2SAT 100
[2020-05-20 18:36] VITALS: TEMP 97.9
== END 2020-05-20 18:34 | disposition home or self-care (01) ==
LOC: ER 15:35
DX: J44.1 Chronic obstructive pulmonary disease with (acute) exacerbation (principal); D64.9 Anemia, unspecified; R51 Headache; Z99.81 Dependence on supplemental oxygen; Z87.891 Personal history of nicotine dependence
CPT/HCPCS: 70450; 71045; 80053; 83880; 85025; 87040; 87635; 93005; 94640; 94760; A4216; J2930; J7620

== ENCOUNTER 2020-07-29 19:20 | Inpatient (IN) | payer MEDICARE ==
[2020-07-29] MEDS ORDERED: SODIUM CHLORIDE 0.9% (FLUSH) 10 ML SYG IV PRN ×2 (19:28→22:28)
[2020-07-29] MEDS ORDERED: ALBUTEROL INHALER 64 PUFF/8GM INH ONE (19:32)
--- NOTE | 2020-07-29 19:35 | ED.PDOC ---
History of Present Illness - General Chief Complaint: Respiratory Problem Stated Complaint: SOB Time Seen by Provider: 07/29/20 19:21 - History of Present Illness Initial Comments: Patient is a 70-year-old male with COPD and a history of a prior stroke that presents emergency department with complaints of trouble breathing. As per the patient's granddaughter at bedside he has had confusion and memory issues since his stroke and occasionally will forget to do his breathing treatments or wears oxygen. She states that she thinks he did not have his nasal cannula oxygen at home. He normally wears 2 to 3 L of nasal cannula oxygen 21/05 Timing/Duration: constant, other - TODAY Severity: moderate Activities at Onset: rest Possible Cause: unknown cause Worsening Factors: nothing Allergies/Adverse Reactions: Allergies Alprazolam Allergy (Verified 03/01/20 19:38) Unknown Hydromorphone [From Dilaudid] Allergy (Verified 03/01/20 19:38) Unknown Home Medications: Ambulatory Orders Albuterol Sulfate Nebs [Proventil Nebs] 2.5 mg NEB Q4H PRN #120 vial 06/04/18 Albuterol Sulfate [Proair Hfa] 2 puff INH Q6H PRN 10/28/19 Fluticasone Furoate-Vilanterol [Breo Ellipta 200-25 Mcg/INH] 1 inh IN DAILY 03/01/20 Ibuprofen 400 mg PO Q6H PRN 03/01/20 Tiotropium [place] Monohydrate [Spiriva Respimat] 2.5 mcg IN DAILY 03/01/20 Cefdinir [Omnicef] 300 mg PO BID #10 cap 03/05/20 Prednisone See Taper PO DAILY #30 tab 03/05/20 Prednisone 60 mg PO DAILY 5 Days #15 tab 05/20/20 Review of Systems - Review of Systems Constitutional: Denies: chills, fever EENTM: States: nose congestion. Denies: blurred vision, tearing, ear discharge, nose pain Respiratory: States: cough, short of breath Cardiology: Denies: see HPI, chest pain, edema, palpitations, syncope Gastrointestinal/Abdominal: Denies: no symptoms reported, abdominal pain, diarrhea, nausea Genitourinary: Denies: see HPI, discharge, frequency, hematuria Musculoskeletal: Denies: see HPI, gout, muscle pain, muscle stiffness Skin: Denies: see HPI, change in color Neurological: Denies: anxiety, depressed, numbness, paresthesia Endocrine: Denies: see HPI, excessive sweating, flushing Hematologic/Lymphatic: Denies: anemia, easy bruising Past Medical History (General) - Patient Medical History Hx Seizures: No Hx Stroke: No Hx Asthma: No Hx of COPD: Yes Hx Cardiac Disorders: No Hx Congestive Heart Failure: No Hx Pacemaker: No Hx Hypertension: No Hx Thyroid Disease: No Hx Diabetes: No Hx Gastroesophageal Reflux: No Hx Renal Disease: No Hx Cancer: No Hx of HIV: No Hx Hepatitis C: No Hx MRSA: No - Vaccination History Hx Tetanus, Diphtheria Vaccination: No Hx Influenza Vaccination: No Hx Pneumococcal Vaccination: Yes - Social History Hx Tobacco Use: Yes Hx Alcohol Use: No Hx Substance Use: No Hx Substance Use Treatment: No Hx Depression: Yes Hx Physical Abuse: No Hx Emotional Abuse: No - Female History Patient : No Family Medical History - Family History Mother Family History: Unknown Living Status: Hx Family;Other: Patient unable to remember this information at this time. Father Family History: Unknown Living Status: Physical Exam - Physical Exam General Appearance: Alert, Well Developed Eyes, Ears, Nose, Throat Exam: TMs normal, pharynx normal Neck: non-tender, supple Respiratory: chest non-tender, decreased breath sounds, accessory muscle use, crackles Cardiovascular/Chest: normal peripheral pulses, regular rate, rhythm, no JVD Peripheral Pulses: radial,right: 2+, radial,left: 2+ Gastrointestinal/Abdominal: normal bowel sounds, non tender, soft Extremity: normal range of motion, no pedal edema Neurologic: alert, disoriented x 3 - BASELINE Skin Exam: normal color Progress - EKG/XRAY/CT XRAY: chest - EXAM DESCRIPTION: Chest,1 View CLINICAL HISTORY: 70 years Male, sob COMPARISON: 05/20/2020 TECHNIQUE: Single AP chest radiograph. FINDINGS: Nonspecific patchy pulmonary opacities in the right midlung and left lower lung. No pneumothorax or pleural effusion. Normal cardiomediastinal contour. Departure - Departure Clinical Impression: Bilateral pneumonia, COPD exacerbation, Anemia, Chronic respiratory failure Disposition: Admit Patient Home Medications: Ambulatory Orders Albuterol Sulfate Nebs [Proventil Nebs] 2.5 mg NEB Q4H PRN #120 vial 06/04/18 Albuterol Sulfate [Proair Hfa] 2 puff INH Q6H PRN 10/28/19 Fluticasone Furoate-Vilanterol [Breo Ellipta 200-25 Mcg/INH] 1 inh IN DAILY 03/01/20 Ibuprofen 400 mg PO Q6H PRN 03/01/20 Tiotropium [place] Monohydrate [Spiriva Respimat] 2.5 mcg IN DAILY 03/01/20 Cefdinir [Omnicef] 300 mg PO BID #10 cap 03/05/20 Prednisone See Taper PO DAILY #30 tab 03/05/20 Prednisone 60 mg PO DAILY 5 Days #15 tab 05/20/20
--- NOTE | 2020-07-29 19:56 | RAD ---
EXAM DESCRIPTION: Chest,1 View CLINICAL HISTORY: 70 years Male, sob COMPARISON: 05/20/2020 TECHNIQUE: Single AP chest radiograph. FINDINGS: Nonspecific patchy pulmonary opacities in the right midlung and left lower lung. No pneumothorax or pleural effusion. Normal cardiomediastinal contour. Normal osseous structures. IMPRESSION: 1. Nonspecific patchy pulmonary opacities. Differential includes multifocal infection. Electronically signed by: Rakan Kerr MD 07/29/2020 7:54 PM CDT
[2020-07-29] MEDS ORDERED: methylPREDNISolone SODIUM SUC 125 MG/2 ML VIAL IV ONE (20:03)
[2020-07-29] MEDS ORDERED: ALBUTEROL INHALER 64 PUFF/8GM INH SCH (20:30)
[2020-07-29] MEDS ORDERED: AZITHROMYCIN 250 MG TAB PO ONE (20:38)
[2020-07-29] MEDS ORDERED: cefTRIAXone SODIUM 1 GM VIAL IM ONE (20:38)
[2020-07-29] MEDS ORDERED: LIDOCAINE 1% 2 ML VIAL INJ ONE (20:47)
--- NOTE | 2020-07-29 21:50 | HP ---
SUPERVISING PHYSICIAN: Aaron Banerjee MD CHIEF COMPLAINT: Confusion and shortness of breath. HISTORY OF PRESENT ILLNESS: This is a 70-year-old male with a history of endstage chronic obstructive pulmonary disease and prior stroke who presented to the Emergency Room with difficulty breathing. His family also said he was quite confused. She was unsure, but he may not have worn his oxygen that morning or did his breathing treatment. He normally wears oxygen at 2 to 3 liters per minute at all times. He was brought to the Emergency Room and initial vital signs showed temperature 97.8, heart rate 104, blood pressure 119/87, respiratory rate 22 to 24 breaths per minute and O2 saturation 74%. Oxygen was placed on the patient and he came up to the low 90s. He was given multiple breathing treatments and his chest x-ray showed nonspecific patchy pulmonary opacities that could include multifocal infection. His COVID-19 testing was negative. Labs showed WBC 8,500, hemoglobin 7.1 and hematocrit 25. He had a left shift on his differential. Blood gas showed pCO2 58, pO2 79, pH 7.33, O2 saturation 95%. Electrolytes were basically within normal limits except for chloride was slightly low at 96. BUN 12, creatinine 0.91, BNP 168. Urinalysis was unremarkable. Blood cultures were drawn. He was typed and crossed for blood. He also had CTA of the chest done and showed 1) Motion limited study. 2) No evidence of pulmonary embolism. 3) No evidence of infection as was queried. 4) Biapical subpleural nodules versus scar indeterminate. Recommend a PET/CT versus tissue sampling of the largest nodule. Please see results for further recommendations. He was also given some azithromycin, Rocephin and Solu-Medrol. He was also given a dose of Lasix and was admitted to the hospital in stable condition. PAST MEDICAL HISTORY: 1. Endstage chronic obstructive pulmonary disease, oxygen dependent at all times. 2. 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 3. Dementia with depression. 4. Chronic anemia. PAST SURGICAL HISTORY: 1. Bilateral cataract removal. 2. Arteriovenous malformation coiling resulting in a hemorrhagic stroke. OUTPATIENT MEDICATIONS: Per the EMR. ALLERGIES: ALPRAZOLAM, HYDROMORPHONE. FAMILY HISTORY: Positive for chronic obstructive pulmonary disease and alcoholism. SOCIAL HISTORY: The patient quit smoking several months ago, but he does not remember when. He said it was shortly after his last admission which was in February. He had previously smoked for most of his life. He also has a previous history of alcoholism, but has not drank in the last few years. 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 He has 3 children. He lives in [place]. REVIEW OF SYSTEMS: GENERAL: Negative for fever, fatigue or weight changes. HEENT: Positive for blindness in his left eye due to CVA. Negative for sinus symptoms, hearing problems, vision changes or sore throat. RESPIRATORY: As per history of present illness. CARDIAC: Negative for chest pain, palpitations or tachycardia. GASTROINTESTINAL: Negative for nausea, vomiting, diarrhea, constipation. GENITOURINARY: Negative for hematuria, dysuria or polyuria. SKIN: Negative for lesions or rashes. NEUROLOGIC: Positive for weakness and difficulty speaking as well as a mild headache. Negative for seizures. PHYSICAL EXAMINATION: VITAL SIGNS: Temperature 98.1, heart rate 88, blood pressure 113/67, respiratory rate 22, O2 saturation 93% on 3 liters nasal cannula. GENERAL: This is a 70-year-old unkempt male patient who is lying in his hospital bed. He is in mild respiratory distress. HEENT: Pupil to his right eye is reactive. His left eye is covered with an eye patch. Oropharynx is clear. NECK: Supple without mass. RESPIRATORY: Scattered wheezing throughout all lung prabhakar as well as a few rhonchi. He is tachypneic, especially with speaking. He can only speak in 2 to 3 word phrases. CARDIOVASCULAR: Regular rate and rhythm. GASTROINTESTINAL: Abdomen is soft, nondistended, nontender. Bowel sounds are positive. GENITOURINARY: Deferred. BACK: Deferred. EXTREMITIES: No cyanosis, clubbing or edema. NEUROLOGIC: Awake and alert. He gets somewhat confused with questions, but answers simple questions appropriately. SKIN: Warm, pink and dry. LABORATORY: Followup labs this morning show WBC 3,800. After receiving 2 units of blood, his hemoglobin is 10, hematocrit 32.2. Electrolytes are basically within normal limits. RADIOLOGY: Chest x-ray shows no acute cardiopulmonary process and changes of chronic obstructive pulmonary disease. All other labs and films have been reviewed via the EMR. IMPRESSION: 1. Sepsis with concerns for developing bilateral pneumonia, community acquired, with a heart rate of 104, respiratory rate 22 to 24, O2 saturation 74%, pO2 79 and pCO2 58. 2. Hypercapnic hypoxic respiratory failure with pO2 79, pCO2 58. 3. Acute exacerbation of endstage chronic obstructive pulmonary disease in a previous long-term smoker. He just recently quit in the last months. 4. Chronic anemia, hypochromic/microcytic. Admitting hemoglobin 7.1. 5. 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 PLAN: The patient is admitted to the hospital. The pneumonia guidelines have been started. He will continue on Zithromax and Rocephin. He will have aggressive pulmonary hygiene. I will continue his IV Solu-Medrol and we will titrate that off and hopefully change him to oral prednisone in the next day or so. His home medications will be restarted. He will have Lovenox for DVT prophylaxis and proton pump inhibitor for ulcer prophylaxis. We will monitor his cultures closely. I have repeated lab for in the morning. #[id number] [facility]
--- NOTE | 2020-07-29 22:02 | CT ---
EXAM: CTA Chest HISTORY: ABNORMAL X-RAY COMPARISON: 07/29/2020 TECHNIQUE: Contiguous axial CTA images of the chest were obtained from the thoracic inlet to the upper abdomen after administration of intravenous contrast followed by multiplanar reformats. 3-D postprocessing was performed. This exam was performed according to our departmental dose-optimization program, which includes automated exposure control, adjustment of the mA and/or kV according to patient size and/or use of iterative reconstruction technique. FINDINGS: Motion limited study. There is adequate opacification of the pulmonary arterial vasculature. There is no evidence of pulmonary embolus. Heart size normal. No evidence of right heart strain. No pericardial effusion. No mediastinal adenopathy. Central airways are patent. Great vessels are normal. 17 mm right apical subpleural nodule versus scar. 8 mm right apical subpleural nodule versus scar. Centrilobular emphysema.. No pneumothorax or pleural effusion. Limited visualization of upper abdominal contents is unremarkable for an acute process. No destructive osseous lesion. IMPRESSION: 1. Motion limited study. 2. No evidence of pulmonary embolus. 3. No evidence of infection as was queried. 4. Biapical subpleural nodules versus scar, indeterminate. Recommend a PET/CT versus tissue sampling for the largest nodule; if largest nodule is determined to be benign, recommend a non-contrast Chest CT at 3-6 months to follow up on other nodules, with another non-contrast Chest CT at 18-24 months. Alternatively, a non-contrast Chest CT at 3 months may be performed to follow up on all nodules, with another non-contrast Chest CT at 18-24 months. Electronically signed by: Rakan Kerr MD 07/29/2020 10:01 PM CDT
[2020-07-29] MEDS ORDERED: ONDANSETRON INJ 4 MG/2 ML VIAL IV PRN (22:28)
[2020-07-29] MEDS ORDERED: ALBUTEROL SULFATE 2.5 MG/3 ML VIAL NEB PRN (22:28)
[2020-07-29] MEDS ORDERED: ACETAMINOPHEN 325 MG TAB PO PRN (22:28)
[2020-07-30] MEDS ORDERED: FUROSEMIDE INJ 40 MG/4 ML VIAL IV ONE (00:26)
[2020-07-30] MEDS ORDERED: SODIUM CHLORIDE 0.9% 500ML 500 ML ONE (01:04)
[2020-07-30] MEDS: methylPREDNISolone SODIUM SUC 40 MG/ML VIAL IV SCH ×3 (06:01→22:30)
[2020-07-30] MEDS: PANTOPRAZOLE SODIUM IV 40 MG VIAL IV SCH (06:05)
[2020-07-30] MEDS: IV SET AND CAP CHANGE INJ INJ SCH (07:10)
[2020-07-30] MEDS: IPRATROPIUM/ALBUTEROL 3 ML VIAL INH SCH ×4 (08:30→20:00)
[2020-07-30] MEDS ORDERED: AZITHROMYCIN IV 500 MG VIAL IVPB ONE (08:38)
[2020-07-30] MEDS ORDERED: cefTRIAXone SODIUM 1 GM VIAL ONE (08:38)
[2020-07-30] MEDS ORDERED: SODIUM CHLORIDE 0.9% 250ML 250 ML ONE (08:38)
[2020-07-30] MEDS ORDERED: SODIUM CHL 0.9% 50ML MIN-BAG+ 50 ML IVPB ONE (08:39)
--- NOTE | 2020-07-30 08:45 | RAD ---
EXAM DESCRIPTION: Chest,2 Views CLINICAL HISTORY: Pneumonia COMPARISON: Chest radiograph dated July 29, 2020 TECHNIQUE: Two-view radiograph of the chest FINDINGS: Cardiac silhouette shows normal heart size. Pulmonary vascularity is within normal limits. Lung volumes are hyperinflated compatible with COPD. Lungs show no confluent infiltrates. No pleural effusion. No pneumothorax. Degenerative changes of the thoracic spine. IMPRESSION: 1. No acute cardiopulmonary process. 2. Changes of COPD. Electronically signed by: Daron Granda MD 07/30/2020 8:44 AM CDT
[2020-07-30] MEDS: SODIUM CHLORIDE 0.9% (FLUSH) 10 ML SYG IV SCH ×2 (08:56→20:20)
[2020-07-30] MEDS: cefTRIAXone SODIUM 1 GM in SODIUM CHL 0.9% 50ML MIN-BAG+ 50 ML IVPB SCH (08:56)
[2020-07-30] MEDS: AZITHROMYCIN IV 500 MG in SODIUM CHLORIDE 0.9% 250ML 250 ML IVPB SCH (09:43)
[2020-07-30] MEDS ORDERED: ENOXAPARIN SODIUM 40 MG/0.4 ML SYG SUBCU ONE (18:52)
[2020-07-30] MEDS: ENOXAPARIN SODIUM 40 MG/0.4 ML SYG SUBCU SCH (20:20)
[2020-07-31] MEDS: methylPREDNISolone SODIUM SUC 40 MG/ML VIAL IV SCH ×2 (05:57→20:52)
[2020-07-31] MEDS: PANTOPRAZOLE SODIUM IV 40 MG VIAL IV SCH (06:00)
--- NOTE | 2020-07-31 07:11 | RAD ---
EXAM DESCRIPTION: X-ray two view chest. CLINICAL HISTORY: 70 years Male, pna, exac of copd COMPARISON: Chest x-ray performed on 07/30/2020 and 07/29/[address] performed on 07/29/2020 TECHNIQUE: PA and Lateral views of the chest performed on 07/31/2020 at 5:48 AM FINDINGS: The lungs are hyperinflated consistent with underlying obstructive airways disease. There is mild coarsening of the lung markings likely due to fibrosis. The costophrenic sulci are clear. There is no evidence of a pneumothorax. The cardiac silhouette is normal in size. The mediastinal contours are normal. No acute osseous abnormalities are identified. No focal soft tissue abnormalities are identified. IMPRESSION: 1. Hyperinflation of the lungs consistent with underlying obstructive airways disease. 2. Mild nonspecific coarsening of the lung markings likely due to mild chronic parenchymal fibrosis. 3. No definite acute intrathoracic disease. Electronically signed by: Chiqui Lanier DO 07/31/2020 7:09 AM CDT
[2020-07-31] MEDS: IPRATROPIUM/ALBUTEROL 3 ML VIAL INH SCH ×4 (08:48→20:47)
[2020-07-31] MEDS: cefTRIAXone SODIUM 1 GM in SODIUM CHL 0.9% 50ML MIN-BAG+ 50 ML IVPB SCH (09:48)
[2020-07-31] MEDS: SODIUM CHLORIDE 0.9% (FLUSH) 10 ML SYG IV SCH ×2 (09:52→20:52)
[2020-07-31] MEDS: AZITHROMYCIN IV 500 MG in SODIUM CHLORIDE 0.9% 250ML 250 ML IVPB SCH (10:31)
[2020-07-31] MEDS ORDERED: methylPREDNISolone SODIUM SUC 40 MG/ML VIAL ONE (19:00)
--- NOTE | 2020-07-31 20:33 | PN ---
SUPERVISING PHYSICIAN: Clemente Banerjee M.D. DATE: 07/31/20 SUBJECTIVE: The patient is sitting up in his bed. States he feels much better. He looks much less short of breath. He says he continues to need his oxygen but he uses oxygen at all times at home. Denies nausea, vomiting or diarrhea. No chest pain or shortness of breath other than his normal status. OBJECTIVE: VITAL SIGNS: Temperature 98, heart rate 94, blood pressure 110/60, respiratory rate 18, O2 saturation 98% on 3 liters nasal cannula. RESPIRATORY: Diminished breath sounds throughout. No expiratory wheezing or crackles. CARDIAC: Regular rate and rhythm. GASTROINTESTINAL: Abdomen is soft, nondistended, non-tender. Bowel sounds are positive. NEUROLOGIC: He is awake, alert and oriented times three. LABORATORY: WBCs are 7.4 with hemoglobin 8.9, hematocrit 28.6. Electrolytes are basically within normal limits with the exception of his chloride is slightly low at 96, BUN 33, creatinine 1.07. Bilirubin 0.3. Preliminary blood cultures show no growth after 24 hours. RADIOLOGY: Chest x-ray shows: 1. Hyperinflation of the lungs consistent with underlying obstruction airway disease. 2. Mild nonspecific worsening of the lung markings likely due to mild chronic parenchymal fibrosis. 3. No definite acute intrathoracic disease. All other labs and films have been reviewed via the EMR. ASSESSMENT: 1. Sepsis with concerns for developing bilateral pneumonia, community acquired, with a heart rate of 104, respiratory rate 22 to 24, O2 saturation 74%, pO2 79 and pCO2 58. 2. Hypercapnic hypoxic respiratory failure with pO2 79, pCO2 58. 3. Acute exacerbation of endstage chronic obstructive pulmonary disease in a previous long-term smoker. He just recently quit in the last months. 4. Chronic anemia, hypochromic/microcytic in etiology. Admitting hemoglobin is 7.1. He received 2 units of packed red blood cells and it went up to 10. Today it is 8.9. 5. 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 PLAN: We will continue present supportive care. His hemoglobin has dropped, so we will watch that closely overnight. His IV steroids have been changed to oral prednisone. I will order some lab for in the morning as well as a stool guaiac. He will need a followup on why his hemoglobin keeps dropping with Dr. Johnson at discharge. #[id number] [facility]
[2020-07-31] MEDS: ENOXAPARIN SODIUM 40 MG/0.4 ML SYG SUBCU SCH (20:51)
[2020-07-31] MEDS: guaiFENesin ER TAB 600 MG TAB PO SCH (20:51)
[2020-08-01] MEDS: PANTOPRAZOLE SODIUM IV 40 MG VIAL IV SCH (06:06)
[2020-08-01] MEDS ORDERED: FUROSEMIDE INJ 40 MG/4 ML VIAL IV ONE (06:59)
[2020-08-01] MEDS ORDERED: SODIUM CHLORIDE 0.9% 500ML 500 ML ONE (07:07)
[2020-08-01] MEDS ORDERED: diphenhydrAMINE HCL 50 MG/ML VIAL ONE (08:14)
[2020-08-01] MEDS ORDERED: SODIUM CHLORIDE 0.9% 50ML 50 ML ONE (08:15)
[2020-08-01] MEDS: cefTRIAXone SODIUM 1 GM in SODIUM CHL 0.9% 50ML MIN-BAG+ 50 ML IVPB SCH (08:34)
[2020-08-01] MEDS: SODIUM CHLORIDE 0.9% (FLUSH) 10 ML SYG IV SCH ×2 (08:35→20:38)
[2020-08-01] MEDS: IPRATROPIUM/ALBUTEROL 3 ML VIAL INH SCH ×4 (08:41→20:50)
[2020-08-01] MEDS: guaiFENesin ER TAB 600 MG TAB PO SCH ×2 (09:00→20:38)
[2020-08-01] MEDS: BIFIDOBACTERIUM INFANTIS 4 MG CAP PO SCH (09:00)
[2020-08-01] MEDS: methylPREDNISolone SODIUM SUC 40 MG/ML VIAL IV SCH ×2 (09:01→20:38)
[2020-08-01] MEDS ORDERED: diphenhydrAMINE HCL 50 MG/ML VIAL IV ONE (09:23)
[2020-08-01] MEDS: AZITHROMYCIN IV 500 MG in SODIUM CHLORIDE 0.9% 250ML 250 ML IVPB SCH (10:21)
--- NOTE | 2020-08-01 15:15 | PN ---
SUPERVISING PHYSICIAN: Clemente Banerjee M.D. DATE: 08/01/20 SUBJECTIVE: The patient;s hemoglobin dropped to 8 again this morning which has been about 1 gram daily. He complains of shortness of breath and some weakness. He also complains that he is constipated. He otherwise denies chest pain, nausea or vomiting. OBJECTIVE: VITAL SIGNS: Temperature 98.4, heart rate 93, blood pressure 115/63, respiratory rate 22, O2 saturation 94% on 3 liters nasal cannula. RESPIRATORY: Diminished throughout. He is mildly tachypneic at rest. . CARDIAC: Regular rate and rhythm. GASTROINTESTINAL: Abdomen is soft, nondistended, non-tender. Bowel sounds are positive. NEUROLOGIC: He is awake, alert and oriented times three. LABORATORY: WBCs are up to 12,800 with hemoglobin 8, hematocrit 26.8. His dropped 2 grams in 48 hours. Electrolytes are basically within normal limits with the exception of his chloride is slightly low at 98. Preliminary blood cultures show no growth after 48 hours. All other labs and films have been reviewed via the EMR. ASSESSMENT: 1. Sepsis with concerns for developing bilateral pneumonia, community acquired, with a heart rate of 104, respiratory rate 22 to 24, O2 saturation 74%, pO2 79 and pCO2 58. 2. Chronic anemia, hypochromic/microcytic in etiology. Admitting hemoglobin is 7.1. He received 2 units of packed red blood cells and it went up to 10. Within 48 hours, it has dropped 2 grams down to 8 and he is receiving 2 more units of packed red blood cells. 3. Hypercapnic hypoxic respiratory failure with pO2 79, pCO2 58. 4. Acute exacerbation of endstage chronic obstructive pulmonary disease in a previous long-term smoker. He just recently quit in the last months. 5. 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 PLAN: We will continue present supportive care. He has not had a stool since he has been admitted so I have given him some milk of magnesia and Miralax. We will need to do a stool for occult blood and that has been ordered. I will talk to his primary care physician, Dr. Johnson, tomorrow. His breathing status has improved remarkably but I am not quite sure why he is bleeding, hopefully we can discharge him tomorrow with close followup with a GI doctor, but again, I will discuss that with Dr. Johnson in the next day. I have ordered lab for in the morning and will monitor and follow as needed. [id number] [facility]
[2020-08-01] MEDS ORDERED: MAGNESIUM HYDROXIDE 30 ML UD PO ONE (16:00)
[2020-08-01] MEDS ORDERED: guaiFENesin ER TAB 600 MG TAB ONE (19:37)
[2020-08-01] MEDS: ENOXAPARIN SODIUM 40 MG/0.4 ML SYG SUBCU SCH (20:37)
[2020-08-01] MEDS: IV SET AND CAP CHANGE INJ INJ SCH (22:01)
[2020-08-02] MEDS: PANTOPRAZOLE SODIUM IV 40 MG VIAL IV SCH (05:53)
[2020-08-02 06:21] VITALS: TEMP 98.2
[2020-08-02] MEDS ORDERED: guaiFENesin ER TAB 600 MG TAB ONE (07:11)
[2020-08-02] MEDS ORDERED: BIFIDOBACTERIUM INFANTIS 4 MG CAP ONE (07:11)
[2020-08-02] MEDS: IPRATROPIUM/ALBUTEROL 3 ML VIAL INH SCH ×2 (08:50→12:48)
[2020-08-02] MEDS: guaiFENesin ER TAB 600 MG TAB PO SCH (09:19)
[2020-08-02] MEDS: BIFIDOBACTERIUM INFANTIS 4 MG CAP PO SCH (09:19)
[2020-08-02] MEDS: methylPREDNISolone SODIUM SUC 40 MG/ML VIAL IV SCH (09:20)
[2020-08-02] MEDS: cefTRIAXone SODIUM 1 GM in SODIUM CHL 0.9% 50ML MIN-BAG+ 50 ML IVPB SCH (09:21)
[2020-08-02] MEDS: SODIUM CHLORIDE 0.9% (FLUSH) 10 ML SYG IV SCH (09:24)
[2020-08-02] MEDS: AZITHROMYCIN IV 500 MG in SODIUM CHLORIDE 0.9% 250ML 250 ML IVPB SCH (09:54)
[2020-08-02 11:20] VITALS: BP 123/71
[2020-08-02 14:42] VITALS: O2SAT 99
--- NOTE | 2020-08-02 14:56 | DS ---
SUPERVISING PHYSICIAN: Abraham Lane MD DISCHARGE DIAGNOSIS: 1. Sepsis with concerns for developing bilateral pneumonia, community acquired, with a heart rate of 104, respiratory rate 22 to 24, O2 saturation 74%, pO2 79 and pCO2 58. 2. Chronic anemia, hypochromic/microcytic in etiology. Admitting hemoglobin is 7.1. He received 2 units of packed red blood cells and it went up to 10. Within 48 hours, it dropped 2 grams down to 8 and he is received 2 units of packed red blood cells yesterday. Today, his hemoglobin is 12. 3. Hypercapnic hypoxic respiratory failure with pO2 79, pCO2 58. 4. Acute exacerbation of endstage chronic obstructive pulmonary disease in a previous long-term smoker. He just recently quit in the last months. 5. 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 HISTORY OF PRESENT ILLNESS: This is a 70-year-old male with a history of endstage chronic obstructive pulmonary disease and prior stroke who presented to the Emergency Room with difficulty breathing. He also was quite confused. His daughter said she was unsure, but he frequently forgets to put his oxygen on and he may not have worn his oxygen the morning prior to admission. He normally wears oxygen at 2 to 3 liters per minute. His vital signs in the ER showed temperature 97.8, heart rate 104, blood pressure 119/87, respiratory rate 22 to 24 breaths per minute and O2 saturation 74%. Oxygen was placed on the patient and O2 saturations came up to the low 90s. He was given multiple breathing treatments and his chest x-ray showed nonspecific patchy pulmonary opacities that could include multifocal infection. His COVID-19 testing was negative. Labs showed WBC 8,500, hemoglobin 7.1 and hematocrit 25. He had a left shift on his differential. Blood gas showed pCO2 58, pO2 79, pH 7.33, O2 saturation 95%. Electrolytes were basically within normal limits except for chloride was slightly low at 96. BUN 12, creatinine 0.91, BNP 168. Urinalysis was unremarkable. Blood cultures were drawn. He was typed and crossed for blood. He also had CTA of the chest done and showed 1) Motion limited study. 2) No evidence of pulmonary embolism. 3) No evidence of infection as was queried. 4) Biapical subpleural nodules versus scar indeterminate. Recommend a PET/CT versus tissue sampling of the largest nodule. Please see results for further recommendations. He was also given some azithromycin, Rocephin and Solu-Medrol. He was also given a dose of Lasix and was admitted to the hospital in stable condition. HOSPITAL COURSE: The pneumonia guidelines were initiated. He was continued on Zithromax and Rocephin. He had aggressive pulmonary hygiene. His IV Solu- Medrol was continued, but titrated down to oral prednisone. His home medications were restarted. He had Lovenox for DVT prophylaxis and proton pump inhibitor for ulcer prophylaxis. He was given 2 units of packed red blood cells and the next day, his hemoglobin was up 10. His respiratory symptoms improved, but the following day, his hemoglobin dropped almost 1 gram in 24 hours. The following day, it dropped another gram. He became symptomatic with some shortness of breath and weakness. He was then given 2 additional units of blood. Stool guaiac was ordered. It was difficult to initially get the stool because he was constipated. After giving him some Milk of Magnesia and placing him on MiraLAX, stool for occult blood was done and it was positive. This morning, hemoglobin is 12. I spoke with his primary care physician, Dr. Johnson, and he felt he could be discharged to followup with him tomorrow and to get a GI referral as quickly as possible. LABORATORY: Hemoglobin initially was 8.5, but went up to 12.8. WBCs were initially 8.5 and went up to 12.8. Hemoglobin on admission was 7.1 and hematocrit 25. The following day after 2 units of packed red blood cells, hemoglobin was 10 and hematocrit 32.2. The follow day, it dropped to hemoglobin 8.9 and hematocrit 28.6. The day after that, it dropped to 8 and 26.8. He received 2 units of packed red blood cells and today it is hemoglobin 12.1 and hematocrit 38. Sodium was stable at 138 with stable potassium at 4.3. Chloride 98, carbon dioxide as high as 34, but today is 31. BUN 23, creatinine 0.86. Liver enzymes within normal limits. He did have a slightly elevated BNP of 168. Urinalysis was unremarkable. MICROBIOLOGY: Preliminary blood culture showed no growth after 3 days. COVID panel was negative. RADIOLOGY: Chest CTA per the history of present illness. His final chest x-ray showed 1) Hyperinflation of the lungs consistent with underlying obstructive airway disease. 2) Mild nonspecific worsening of the lung markings likely due to mild chronic parenchymal fibrosis. No definite acute intrathoracic disease. DISCHARGE PLAN: The patient will be discharged home in fair condition. He has a followup appointment with Dr. Johnson tomorrow at 10:15 AM. It will be a Telehealth visit. He is to resume his previous diet and increase his activity as tolerated. He has had [facility] in the past and he has decided to pass on that for now, but he will call Dr. Johnson's office if he decides to reestablish care. Due to his hemoglobin on initial presentation as well as his blood loss of approximately 1 gram per day after his first blood transfusion, it is advisable to get an emergent followup with GI for scope. Please review his CTA for recommendations on the pulmonary nodules. They recommend either CTA/PET scan versus tissue sampling. In addition to his routine home medications, he is to continue with Align, cefdinir, azithromycin and prednisone taper. He is to return to the hospital or followup with Dr. Johnson for any problems or complications. DISCHARGE MEDICATIONS: 1. Albuterol. 2. Spiriva Respimat. 3. Breo Ellipta. 4. Ibuprofen. 5. Prednisone. 6. Align. 7. Azithromycin. 8. Prednisone taper. #[id number] [facility]
== END 2020-08-02 14:53 | disposition home or self-care (01) | DRG 871 ==
LOC: ER 19:20 → MS 21:48 → OBSVTOIN 21:48
PROVIDERS: ADMIT Nurse Practitioner Acute Care; ATTEND Nurse Practitioner Acute Care
PROC: B32T1ZZ Computerized Tomography (CT Scan) of Left Pulmonary Artery using Low Osmolar Contrast (ICD-10-PCS; 2020-07-29)
PROC: B32S1ZZ Computerized Tomography (CT Scan) of Right Pulmonary Artery using Low Osmolar Contrast (ICD-10-PCS; 2020-07-29)
PROC: 30233N1 Transfusion of Nonautologous Red Blood Cells into Peripheral Vein, Percutaneous Approach (ICD-10-PCS; principal; 2020-07-30)
PROC: 30233N1 Transfusion of Nonautologous Red Blood Cells into Peripheral Vein, Percutaneous Approach (ICD-10-PCS; 2020-08-01)
DX: A41.9 Sepsis, unspecified organism (principal); J18.9 Pneumonia, unspecified organism; J96.91 Respiratory failure, unspecified with hypoxia; J96.92 Respiratory failure, unspecified with hypercapnia; J44.1 Chronic obstructive pulmonary disease with (acute) exacerbation; I69.354 Hemiplegia and hemiparesis following cerebral infarction affecting left non-dominant side; D50.9 Iron deficiency anemia, unspecified; K59.00 Constipation, unspecified; R19.5 Other fecal abnormalities; F03.90 Unspecified dementia, unspecified severity, without behavioral disturbance, psychotic disturbance, mood disturbance, and anxiety; F32.9 Major depressive disorder, single episode, unspecified; Z99.81 Dependence on supplemental oxygen; Z87.891 Personal history of nicotine dependence; Z95.828 Presence of other vascular implants and grafts; Z88.5 Allergy status to narcotic agent; Z88.8 Allergy status to other drugs, medicaments and biological substances; Z79.1 Long term (current) use of non-steroidal anti-inflammatories (NSAID); Z79.52 Long term (current) use of systemic steroids; Z79.899 Other long term (current) drug therapy

== ENCOUNTER 2020-08-20 05:16 | Day surgery (SDC) | payer MEDICARE ==
[2020-08-20] MEDS ORDERED: LIDOCAINE 1% 10 ML VIAL INJ ONE (05:17)
[2020-08-20] MEDS ORDERED: PROPOFOL 200 MG/20 ML VIAL IV ONE (05:17)
[2020-08-20] MEDS ORDERED: LACTATED RINGERS 1,000 ML ONE (06:42)
[2020-08-20] MEDS ORDERED: fentaNYL CITRATE INJ 50 MCG/ML 2 ML AMP ONE (11:56)
[2020-08-20] MEDS ORDERED: DEXMEDETOMIDINE HCL 200 MCG/2 ML INJ IV ONE (13:01)
[2020-08-20] MEDS ORDERED: ELECTROLYTE-A 1,000 ML IVS ONE (13:17)
[2020-08-20 14:15] VITALS: BP 128/57; TEMP 97.3; O2SAT 97
--- NOTE | 2020-08-20 16:35 | OP ---
PREOPERATIVE DIAGNOSIS: 1. Anemia. 2. History of colon polyps. POSTOPERATIVE DIAGNOSIS: EGD #1: Two Dieulafoy ulcers, treated. 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 COLONOSCOPY: Polyps x7.to be described. COMPLICATIONS: None. EBL: Minimal. SPECIMEN: Polyps. PLAN: DC indication as stated procedure. SURGEON: Jose Gallegos MD ANESTHESIA: General PROCEDURE: General anesthesia was induced, wide-open position, bite block in place, the upper endoscope was inserted and the stomach showed some reactive little polyp tissue but no mass, no stricture, no evidence of ulcers or severe esophagitis. When we got into the stomach, what appeared to be some coffee- ground was noted, not a large amount but it was there. We went into the duodenum without difficulty and identified a number of AVMs, none of them seemed to be actively bleeding at this time but as we backed up into the stomach we then identified one bleeding spot that was most likely an AVM or a Dieulafoy ulcer. It was oozing so we got out the monopolar cautery and cauterized this and controlled it. On further examination after irrigating the stomach up near the fundus, there was another spot that we saw and it was a small dot and as we irrigated the area it started actively bleeding so this was a definite Dieulafoy ulcer. This was treated with cautery, number up to irrigation and made a couple of different attempts bleeding around the vessel and then getting the actual ulcer itself and it did stop. After completing more of the exam and looking back again it was controlled, with these multiple sites we decided then to treat the duodenal AVMs, each one that was visible was treated. There could be some deeper, we went as deep as we could with the scope and identified one in at least the third portion and then three others more proximally and these were treated superficially, they did aggravate and bleed a little bit but we got that controlled, of course with care not to go too deep as we were on the duodenal wall, very light touch on the mucosal surface for these. That was completion of the scope. Further examination revealed no evidence of continued bleeding. The Josie-Salcedo was seen on retroflexion and as we carefully examined upon withdrawal, we did see the Josie-Salcedo and there was no active bleeding here. The esophageal surfaces did not show any evidence of ulcer bleeding or AVM. COLONOSCOPY: Digital rectal exam was normal. We inserted the colonoscope and identified 2 polyps right away at about 5 to 10 cm but we continued, we got to the cecum and began excising the polyps we had seen. One was in the distal transverse, it was excised with the forceps. There were 2 in the cecum, one in the very distal cecum and one right at the proximal cecum. Each of these were removed with the snare, they were approximately 2.5 cm. Upon further withdrawal there was a polyp about 3.5 cm in the proximal sigmoid that was removed with the snare, a small polyp at 30 cm, removed again with the snare. There were 2 very low down, approximately 5 to 10 cm, these were removed both with snare, one of them we got most with the snare but then completed with the forceps and the other was taken merely with the forceps. We will await for final pathology on those. Ultimately, multiple sites potential anemia. He did have some AVMs from the colon also. I had spoke with his daughter, the warning signs for potential bleeding after the treatment. Will await pathology, I will see him next week. cc: Lee Johnson MD #[id number] [facility]
== END 2020-08-20 15:23 | disposition home or self-care (01) ==
LOC: AMB 05:16
PROVIDERS: ATTEND Surgery
DX: D50.9 Iron deficiency anemia, unspecified (principal); D12.0 Benign neoplasm of cecum; D12.5 Benign neoplasm of sigmoid colon; D12.3 Benign neoplasm of transverse colon; K63.5 Polyp of colon; Q27.33 Arteriovenous malformation of digestive system vessel; J44.9 Chronic obstructive pulmonary disease, unspecified; F41.9 Anxiety disorder, unspecified; Z86.010 Personal history of colon polyps; Z88.8 Allergy status to other drugs, medicaments and biological substances; Z87.891 Personal history of nicotine dependence; Z86.73 Personal history of transient ischemic attack (TIA), and cerebral infarction without residual deficits; Z79.899 Other long term (current) drug therapy
CPT/HCPCS: 00813; 43239; 45380; 45385; 88305; J3010; J3490; J7120

== ENCOUNTER 2020-10-14 17:04 | Emergency (ER) | payer MEDICARE ==
[2020-10-14 17:14] VITALS: TEMP 99
[2020-10-14] MEDS ORDERED: ALBUTEROL SULFATE 2.5 MG/3 ML VIAL NEB ONE (17:19)
[2020-10-14] MEDS ORDERED: IPRATROPIUM/ALBUTEROL 3 ML VIAL NEB ONE (17:19)
--- NOTE | 2020-10-14 19:44 | ED.PDOC ---
History of Present Illness - General Chief Complaint: Respiratory Problem Stated Complaint: SOB Time Seen by Provider: 10/14/20 17:30 Source: patient, RN notes reviewed, Vital Signs reviewed Exam Limitations: no limitations - History of Present Illness Initial Comments: Patient is a 70-year-old white male who presents with worsening shortness of breath and cough. Patient denies any fevers or chills. Cough is intermittently productive for thick white sputum. Cough is worse when he exerts himself. It is better when he rests. It waxes and wanes. Patient is supposed to use his inhaler at home but forgets to take his inhaler treatments as directed. Timing/Duration: getting worse, other - 3 days Severity: moderate Possible Cause: frequent episodes, other - hx of copd Improving Factors: rest Worsening Factors: movement Associated Symptoms: cough, shortness of breath, wheezing Allergies/Adverse Reactions: Allergies Alprazolam Allergy (Verified 10/14/20 17:16) Unknown Hydromorphone [From Dilaudid] Allergy (Verified 10/14/20 17:16) Unknown Home Medications: Ambulatory Orders Tiotropium [place] Monohydrate [Spiriva Respimat] 2.5 mcg IN DAILY 03/01/20 Bifidobacterium Infantis [Align] 4 mg PO DAILY cap 08/02/20 Albuterol Sulfate Nebs [Proventil Nebs] 2.5 mg NEB QID PRN 08/18/20 Ferrous Gluconate [Ferrous Gluconate Iron] 28 mg PO DAILY 08/18/20 Fluticasone Furoate-Vilanterol [Breo Ellipta 200-25 Mcg/INH] 1 inh IN DAILY 08/18/20 Methylprednisolone [Medrol Dose John] 4 mg PO DAILY 6 Days #21 tab 10/14/20 Review of Systems - Review of Systems Constitutional: States: no symptoms reported, see HPI. Denies: chills, fever, malaise, weakness EENTM: States: no symptoms reported, other - left eye blindness-chronic. Denies: eye pain, blurred vision, double vision Respiratory: States: see HPI, cough, short of breath, wheezing. Denies: stridor Cardiology: States: no symptoms reported. Denies: chest pain, palpitations, syncope Gastrointestinal/Abdominal: States: no symptoms reported. Denies: abdominal pain, diarrhea, nausea, vomiting Genitourinary: States: no symptoms reported. Denies: dysuria, frequency Musculoskeletal: States: no symptoms reported. Denies: back pain, joint pain, joint swelling, neck pain Skin: States: no symptoms reported. Denies: change in color, rash Neurological: States: no symptoms reported. Denies: tingling, tremors, weakness Endocrine: States: no symptoms reported. Denies: increased hunger, increased thirst, increased urine Hematologic/Lymphatic: States: no symptoms reported. Denies: blood clots, easy bleeding All other Systems: No Change from Baseline Past Medical History (General) - Patient Medical History Hx Seizures: No Hx Stroke: No Hx Asthma: No Hx of COPD: Yes Hx Cardiac Disorders: No Hx Congestive Heart Failure: No Hx Pacemaker: No Hx Hypertension: No Hx Thyroid Disease: No Hx Diabetes: No Hx Gastroesophageal Reflux: No Hx Renal Disease: No Hx Cancer: No Hx of HIV: No Hx Hepatitis C: No Hx MRSA: No - Vaccination History Hx Tetanus, Diphtheria Vaccination: No Hx Influenza Vaccination: No Hx Pneumococcal Vaccination: Yes - Social History Hx Tobacco Use: Yes Hx Alcohol Use: No Hx Substance Use: No Hx Substance Use Treatment: No Hx Depression: Yes Hx Physical Abuse: No Hx Emotional Abuse: No - Activities of Daily Living Hospice Agency (if applicable):: None - Female History Patient is a Female of Child Bearing Age (10 -59 yrs old): No Patient : No Family Medical History - Family History Mother Family History: Unknown Living Status: Hx Family;Other: Patient unable to remember this information at this time. Father Family History: Unknown Living Status: Physical Exam - Physical Exam General Appearance: Anxious, Emaciated, Obvious distress, Unkempt, Well Hydrated, Well Nourished Eye Exam: bilateral normal ENT Exam: hearing grossly normal, pharynx normal, nasal congestion Neck: non-tender, full range of motion, supple Respiratory: chest non-tender, respiratory distress - moderate, decreased breath sounds, rhonchi, wheezing Cardiovascular/Chest: normal peripheral pulses, no edema, no gallop, no JVD, no murmur, tachycardia Gastrointestinal/Abdominal: normal bowel sounds, non tender, soft Extremity: normal range of motion, non-tender Neurologic: product marketing director II-XII nml as tested, no motor/sensory deficits, alert, normal mood/affect, oriented x 3 Skin Exam: normal color, warm/dry Lymphatic: no adenopathy Progress - Progress Progress: Differential diagnosis: COPD exacerbation, pneumonia, Covid, viral URI among others. 10/14/20 20:21 Patient is without fever. Chest x-ray does not show pneumonia. It appears that he has old interstitial tissue disease that is unchanged. I suspect patient wit h significant COPD. He is improved after breathing treatments. Plan on discharge home with a prescription for steroids. I discussed this plan of care with the patient and his daughter and they voiced understanding and agreement. Sawyer Tang M.D. #[id number] - Results/Orders Results/Orders: EXAM DESCRIPTION: Chest,1 View CLINICAL HISTORY: tachypnea and productive cough COMPARISON: Chest x-ray 07/31/2020. TECHNIQUE: Single view of the chest. FINDINGS: Lung volumes adequate. Cardiac silhouette is normal. No focal consolidation, pneumothorax, pleural effusion. Unchanged coarse bilateral interstitial markings. IMPRESSION: 1. No acute chest findings. 2. Unchanged coarse bilateral interstitial markings. Electronically signed by: Edyta Edwards MD 10/14/2020 8:18 EKG performed 14 October 2020 at 1713 hrs.: Sinus tachycardia 116 bpm, normal axis deviation, no ST or T wave changes, otherwise normal EKG. No prior EKG available for comparison at this time. 10/14/20 19:30 EKG STAT Vital Signs 10/14/20 10/14/20 10/14/20 17:05 17:10 19:13 Temperature 99.0 F Pulse Rate [ 113 H 92 H pulse ox] Respiratory 28 H 28 H 16 Rate Blood Pressure 162/95 139/64 [Left Arm] O2 Sat by Pulse 96 98 Oximetry 10/14/20 20:00 Temperature Pulse Rate [ 87 pulse ox] Respiratory 18 Rate Blood Pressure 130/60 [Left Arm] O2 Sat by Pulse 91 L Oximetry Departure - Departure Clinical Impression: COPD with acute exacerbation Time of Disposition: 20:23 Disposition: Discharge to Home or Self Care Condition: Fair Departure Forms: ED Discharge - Pt. Copy, Patient Portal Self Enrollment Instructions: Exacerbation of COPD (DC) Diet: resume usual diet Activity: increase activity as tolerated Referrals: Lee Johnson MD [Primary Care Provider] - 1-5 Days Prescriptions: Methylprednisolone [Medrol Dose John] 4 mg PO DAILY 6 Days #21 tab Home Medications: Ambulatory Orders Tiotropium [place] Monohydrate [Spiriva Respimat] 2.5 mcg IN DAILY 03/01/20 Bifidobacterium Infantis [Align] 4 mg PO DAILY cap 08/02/20 Albuterol Sulfate Nebs [Proventil Nebs] 2.5 mg NEB QID PRN 08/18/20 Ferrous Gluconate [Ferrous Gluconate Iron] 28 mg PO DAILY 08/18/20 Fluticasone Furoate-Vilanterol [Breo Ellipta 200-25 Mcg/INH] 1 inh IN DAILY 08/18/20 Methylprednisolone [Medrol Dose John] 4 mg PO DAILY 6 Days #21 tab 10/14/20
[2020-10-14 20:06] VITALS: BP 130/60
--- NOTE | 2020-10-14 20:19 | RAD ---
EXAM DESCRIPTION: Chest,1 View CLINICAL HISTORY: tachypnea and productive cough COMPARISON: Chest x-ray 07/31/2020. TECHNIQUE: Single view of the chest. FINDINGS: Lung volumes adequate. Cardiac silhouette is normal. No focal consolidation, pneumothorax, pleural effusion. Unchanged coarse bilateral interstitial markings. IMPRESSION: 1. No acute chest findings. 2. Unchanged coarse bilateral interstitial markings. Electronically signed by: Edyta Edwards MD 10/14/2020 8:18 PM [facility]
[2020-10-14 20:33] VITALS: O2SAT 100
== END 2020-10-14 20:33 | disposition home or self-care (01) ==
LOC: ER 17:04
DX: J44.1 Chronic obstructive pulmonary disease with (acute) exacerbation (principal); R00.0 Tachycardia, unspecified; F32.9 Major depressive disorder, single episode, unspecified; Z87.891 Personal history of nicotine dependence; Z79.899 Other long term (current) drug therapy; Z88.5 Allergy status to narcotic agent; Z88.8 Allergy status to other drugs, medicaments and biological substances
CPT/HCPCS: 71045; 93005; 94640; J7611; J7620

== ENCOUNTER 2020-12-16 21:39 | Emergency (ER) | payer MEDICARE ==
--- NOTE | 2020-12-16 21:51 | ED.PDOC ---
History of Present Illness - General Source: patient, RN notes reviewed, Vital Signs reviewed, EMS notes reviewed, family, EMS, old records Exam Limitations: clinical condition - History of Present Illness Initial Comments: 70 yo with COPD on chronic oxygen therapy comes in with worsening confusion. Per daughter patient seems to be off balance when he walks. Also baseline confusion worse today. Patient does complain of some dizziness and shortness of breath. He denies abdominal pain. daughter states he gets like this when his blood count is low. 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 Patient states he had a bloody bm 2 days ago. <Mayte Villagran - Last Filed: 12/17/20 04:52> <Alyson Maynard - Last Filed: 12/17/20 10:33> - General Time Seen by Provider: 12/16/20 21:40 - History of Present Illness Allergies/Adverse Reactions: Allergies Alprazolam Allergy (Verified 10/14/20 17:16) Unknown Hydromorphone [From Dilaudid] Allergy (Verified 10/14/20 17:16) Unknown Home Medications: Ambulatory Orders Tiotropium Dilliner Monohydrate [Spiriva Respimat] 2.5 mcg IN DAILY 03/01/20 Bifidobacterium Infantis [Align] 4 mg PO DAILY cap 08/02/20 Albuterol Sulfate Nebs [Proventil Nebs] 2.5 mg NEB QID PRN 08/18/20 Ferrous Gluconate [Ferrous Gluconate Iron] 28 mg PO DAILY 08/18/20 Fluticasone Furoate-Vilanterol [Breo Ellipta 200-25 Mcg/INH] 1 inh IN DAILY 08/18/20 Methylprednisolone [Medrol Dose John] 4 mg PO DAILY 6 Days #21 tab 10/14/20 Review of Systems - Review of Systems Constitutional: States: other - dizziness, malaise. . Denies: fever EENTM: Denies: mouth swelling Respiratory: States: short of breath. Denies: cough Cardiology: Denies: chest pain Gastrointestinal/Abdominal: Denies: abdominal pain, diarrhea, nausea, vomiting Skin: Denies: rash Neurological: States: weakness. 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 Hx Dementia: Yes Hx Asthma: No Hx of COPD: Yes - oxygen dependent Hx Cardiac Disorders: No Hx Congestive Heart Failure: No Hx Pacemaker: No Hx Hypertension: No Hx Thyroid Disease: No Hx Diabetes: No Hx Gastroesophageal Reflux: No Hx Renal Disease: No Hx Cancer: No Hx of HIV: No Hx Hepatitis C: No Hx MRSA: No Hx Other PMH: Yes - anemia, AVM, ulcer - Vaccination History Hx Tetanus, Diphtheria Vaccination: No Hx Influenza Vaccination: No Hx Pneumococcal Vaccination: Yes - Social History Hx Tobacco Use: Yes Hx Alcohol Use: No Hx Substance Use: No Hx Substance Use Treatment: No Hx Depression: Yes Hx Physical Abuse: No Hx Emotional Abuse: No - Female History Patient : No <Mayte Villagran - Last Filed: 12/17/20 04:52> Family Medical History - Family History Mother Family History: Unknown Living Status: Hx Family;Other: Patient unable to remember this information at this time. Father Family History: Unknown Living Status: <TyshawnMayte - Last Filed: 12/17/20 04:52> Physical Exam - Physical Exam General Appearance: Alert, Comfortable, No apparent distress, Well Developed, Well Groomed, Well Hydrated, Well Nourished Eye Exam: bilateral normal Ears, Nose, Throat: hearing grossly normal, normal ENT inspection, normal pharynx Neck: non-tender, full range of motion, supple, normal inspection, carotid bruit Respiratory: chest non-tender, lungs clear, normal breath sounds, no respiratory distress, no accessory muscle use Cardiovascular/Chest: normal peripheral pulses, regular rate, rhythm, no edema, no gallop, no JVD, no murmur Peripheral Pulses: radial,right: 2+, radial,left: 2+, dorsalis pedis,right: 2+, dorsalis pedis,left: 2+ Gastrointestinal/Abdominal: normal bowel sounds, non tender, soft, no organomegaly Rectal Exam: normal exam, normal rectal tone, heme positive stool Back Exam: no CVA tenderness, no vertebral tenderness Extremity: normal range of motion, non-tender, normal inspection, no pedal edema, no calf tenderness, normal capillary refill 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 no pronator drift Skin Exam: normal color, warm/dry <Mayte Villagran - Last Filed: 12/17/20 04:52> Progress - Progress Progress: 12/16/20 23:07 partial ddx: anemia, GI bleed, pneumonia, UTI, stroke, cad, others considered. HGb 4.7, stool + blood. Will transfuse 2 units. Given 80 mg pantoprazole. patient made NPO. Delay in dispo - no transportation due to bad road conditions. patient vss. will continue to treat, transfer in AM. The data reviewed when caring for this patient included: nurse notes, prior records, etc. The history and assessments from nurses notes were reviewed and considered, and the patient's home medication list was also reviewed and considered. My assessment and the results of testing completed here in the ED were discussed with the patient/family. All questions were answered, and they express understanding of my assessment and the plan. Mayte Villagran DO #[id number] 12/17/20 04:56 - Results/Orders Results/Orders: 12/16/20 21:42 Arterial Blood Gas Stat 12/16/20 22:00 EKG STAT 12/16/20 22:24 Acetaminophen [Tylenol] 650 mg PO ONCE ONE diphenhydrAMINE HCL [Benadryl] 12.5 mg IV ONCE ONE 12/16/20 22:30 Sodium Chloride 0.9% 500Ml [NS 500ml] 500 ml IVS .KVO 12/17/20 Breakfast NPO Except Meds 12/17/20 23:55 NPO at Midnight ONCE Laboratory Results WBC 7.6 K/mm3 (4.8-10.8) 12/16/20 22:01 RBC 2.74 M/mm3 (4.70-6.10) L 12/16/20 22:01 Hgb 4.7 gm/dL (14.0-18.0) L* 12/16/20 22:01 Hct 16.9 % (42.0-52.0) L 12/16/20 22:01 MCV 61.7 fl (80.0-94.0) L 12/16/20 22:01 MCH 17.2 pg (27.0-31.0) L 12/16/20 22:01 MCHC 27.9 g/dL (33.0-37.0) L 12/16/20 22:01 RDW 26.9 % (11.5-14.5) H 12/16/20 22:01 Plt Count 290 K/mm3 (130-400) 12/16/20 22:01 MPV 8.1 fl (7.40-10.4) 12/16/20 22:01 Absolute Neuts (auto) Not Reportable 12/16/20 22:01 Absolute Lymphs (auto) Not Reportable 12/16/20 22:01 Absolute Monos (auto) Not Reportable 12/16/20 22:01 Absolute Eos (auto) Not Reportable 12/16/20 22:01 Neutrophils % Not Reportable 12/16/20 22: Neutrophils % (Manual) 64.0 % (42.0-78.0) 12/16/20 22:01 Lymphocytes % Not Reportable 12/16/20 22:01 Lymphocytes % (Manual) 19.0 % 12/16/20 22:01 Monocytes % Not Reportable 12/16/20 22:01 Monocytes % (Manual) 12.0 % 12/16/20 22:01 Eosinophils % Not Reportable 12/16/20 22:01 Basophils % Not Reportable 12/16/20 22:01 Eosinophils 5.0 % 12/16/20 22:01 Nucleated RBCs 2.0 % 12/16/20 22:01 Platelet Estimate Normal (NORMAL) 12/16/20 22:01 Normal RBC Morphology 3+aniso 3+poikilocytosis 2+hypochromia 2+microcytosis 2+polychromasia 12/16/20 22:01 Normal RBC Morphology 3+aniso 3+poikilocytosis 2+hypochromia 2+microcytosis 2+polychromasia 12/16/20 22:01 Normal RBC Morphology 3+aniso 3+poikilocytosis 2+hypochromia 2+microcytosis 2+polychromasia 12/16/20 22:01 Normal RBC Morphology 3+aniso 3+poikilocytosis 2+hypochromia 2+microcytosis 2+polychromasia 12/16/20 22:01 Normal RBC Morphology 3+aniso 3+poikilocytosis 2+hypochromia 2+microcytosis 2+p olychromasia 12/16/20 22:01 PT 10.4 SECONDS (9.0-10.9) 12/16/20 21:43 INR 1.05 (0.9-1.15) 12/16/20 21:43 PTT (SP) 25.9 SECONDS (21.8-31.6) 12/16/20 21:43 Sodium 137 mmol/L (135-145) 12/16/20 22:01 Potassium 4.1 mmol/L (3.6-5.0) 12/16/20 22:01 Chloride 94 mmol/L (101-111) L 12/16/20 22:01 Carbon Dioxide 34 mmol/L (21-31) H 12/16/20 22:01 Anion Gap 13.1 (12-18) 12/16/20 22:01 BUN 9 mg/dL (7-18) 12/16/20 22:01 Creatinine 0.76 mg/dL (0.6-1.3) 12/16/20 22:01 BUN/Creatinine Ratio 11.8 (10-20) 12/16/20 22:01 Random Glucose 97 mg/dL (70-105) 12/16/20 22:01 Serum Osmolality 272.4 mOsm/L (275-295) L 12/16/20 22:01 Lactic Acid 1.4 mmol/L (0.5-2.2) 12/16/20 22:01 Calcium 8.8 mg/dL (8.4-10.2) 12/16/20 22:01 Total Bilirubin 0.8 mg/dL (0.2-1.0) 12/16/20 22:01 AST 13 IU/L (10-42) 12/16/20 22:01 ALT 9 IU/L (10-60) L 12/16/20 22:01 Alkaline Phosphatase 56 IU/L (42-121) 12/16/20 22:01 Troponin I < 0.02 ng/mL (0.01-0.05) 12/16/20 22:01 Serum Total Protein 6.8 gm/dL (6.4-8.2) 12/16/20 22:01 Albumin 3.6 g/dl (3.2-5.5) 12/16/20 22: Globulin 3.2 gm/dL (2.3-3.5) 12/16/20 22:01 Albumin/Globulin Ratio 1.1 (1.1-1.9) 12/16/20 22:01 TSH 0.64 uIU/mL (0.34-5.60) 12/16/20 22:01 Urine Color Yellow (Yellow) 12/17/20 00:58 Urine Appearance Clear (Clear) 12/17/20 00:58 Urine pH 7.0 (4.5-7.8) 12/17/20 00:58 Ur Specific [place] 1.010 (1.005-1.030) 12/17/20 00:58 Urine Protein Negative mg/dL 12/17/20 00:58 Urine Glucose (UA) Negative mg/dL (Negative) 12/17/20 00:58 Urine Ketones Negative mg/dL (NEGATIVE) 12/17/20 00:58 Urine Blood Negative (Negative) 12/17/20 00:58 Urine Nitrite Negative 12/17/20 00:58 Urine Bilirubin Negative (NEGATIVE) 12/17/20 00:58 Urine Urobilinogen 1.0 mg/dL (0.2-1.0) 12/17/20 00:58 Ur Leukocyte Esterase Negative (Negative) 12/17/20 00:58 Urine RBC 0 /hpf 12/17/20 00:58 Urine WBC 0 /hpf 12/17/20 00:58 Ur Epithelial Cells 0 /hpf 12/17/20 00:58 Urine Bacteria 0 12/17/20 00:58 Stool Occult Blood Positive (NEGATIVE) H 12/16/20 22:39 Patient ABO/Rh A POSITIVE 12/16/20 22:25 Antibody Screen Negative 12/16/20 22:25 Crossmatch See Detail 12/16/20 22:25 - EKG/XRAY/CT EKG: Sinus - 80 Comments: normal intervals, no acute ischemic changes. XRAY: chest - no acute cardiopulmonary pathology CT: head: no ICH <Mayte Villagran - Last Filed: 12/17/20 04:52> - Progress Progress: 12/17/20 10:32 12/16/20 21:42 Arterial Blood Gas Stat 12/16/20 22:00 EKG STAT 12/16/20 22:24 Acetaminophen [Tylenol] 650 mg PO ONCE ONE diphenhydrAMINE HCL [Benadryl] 12.5 mg IV ONCE ONE 12/16/20 22:30 Sodium Chloride 0.9% 500Ml [NS 500ml] 500 ml IVS .KVO 12/17/20 Breakfast NPO Except Meds 12/17/20 23:55 NPO at Midnight ONCE Laboratory Results - last 24 hr 12/16/20 12/16/20 12/16/20 21:43 22:01 22:01 WBC 7.6 RBC 2.74 L Hgb 4.7 L* Hct 16.9 L MCV 61.7 L MCH 17.2 L MCHC 27.9 L RDW 26.9 H Plt Count 290 MPV 8.1 Absolute Neuts (auto) Not Reportable Absolute Lymphs (auto) Not Reportable Absolute Monos (auto) Not Reportable Absolute Eos (auto) Not Reportable Neutrophils % Not Reportable Neutrophils % (Manual) 64.0 Lymphocytes % Not Reportable Lymphocytes % (Manual) 19.0 Monocytes % Not Reportable Monocytes % (Manual) 12.0 Eosinophils % Not Reportable Basophils % Not Reportable Eosinophils 5.0 Nucleated RBCs 2.0 Platelet Estimate Normal Normal RBC Morphology 2+polychromasia PT 10.4 INR 1.05 PTT (SP) 25.9 Sodium 137 Potassium 4.1 Chloride 94 L Carbon Dioxide 34 H Anion Gap 13.1 BUN 9 Creatinine 0.76 BUN/Creatinine Ratio 11.8 Random Glucose 97 Serum Osmolality 272.4 L Lactic Acid Calcium 8.8 Total Bilirubin 0.8 AST 13 ALT 9 L Alkaline Phosphatase 56 Troponin I Serum Total Protein 6.8 Albumin 3.6 Globulin 3.2 Albumin/Globulin Ratio 1.1 TSH Urine Color Urine Appearance Urine pH Ur Specific [place] Urine Protein Urine Glucose (UA) Urine Ketones Urine Blood Urine Nitrite Urine Bilirubin Urine Urobilinogen Ur Leukocyte Esterase Urine RBC Urine WBC Ur Epithelial Cells Urine Bacteria Stool Occult Blood Patient ABO/Rh Antibody Screen Crossmatch 12/16/20 12/16/20 12/16/20 22:01 22:01 22:01 WBC RBC Hgb Hct MCV MCH MCHC RDW Plt Count MPV Absolute Neuts (auto) Absolute Lymphs (auto) Absolute Monos (auto) Absolute Eos (auto) Neutrophils % Neutrophils % (Manual) Lymphocytes % Lymphocytes % (Manual) Monocytes % Monocytes % (Manual) Eosinophils % Basophils % Eosinophils Nucleated RBCs Platelet Estimate Normal RBC Morphology PT INR PTT (SP) Sodium Potassium Chloride Carbon Dioxide Anion Gap BUN Creatinine BUN/Creatinine Ratio Random Glucose Serum Osmolality Lactic Acid 1.4 Calcium Total Bilirubin AST ALT Alkaline Phosphatase Troponin I < 0.02 Serum Total Protein Albumin Globulin Albumin/Globulin Ratio TSH 0.64 Urine Color Urine Appearance Urine pH Ur Specific [place] Urine Protein Urine Glucose (UA) Urine Ketones Urine Blood Urine Nitrite Urine Bilirubin Urine Urobilinogen Ur Leukocyte Esterase Urine RBC Urine WBC Ur Epithelial Cells Urine Bacteria Stool Occult Blood Patient ABO/Rh Antibody Screen Crossmatch 12/16/20 12/16/20 12/17/20 22:25 22:39 00:58 WBC RBC Hgb Hct MCV MCH MCHC RDW Plt Count MPV Absolute Neuts (auto) Absolute Lymphs (auto) Absolute Monos (auto) Absolute Eos (auto) Neutrophils % Neutrophils % (Manual) Lymphocytes % Lymphocytes % (Manual) Monocytes % Monocytes % (Manual) Eosinophils % Basophils % Eosinophils Nucleated RBCs Platelet Estimate Normal RBC Morphology PT INR PTT (SP) Sodium Potassium Chloride Carbon Dioxide Anion Gap BUN Creatinine BUN/Creatinine Ratio Random Glucose Serum Osmolality Lactic Acid Calcium Total Bilirubin AST ALT Alkaline Phosphatase Troponin I Serum Total Protein Albumin Globulin Albumin/Globulin Ratio TSH Urine Color Yellow Urine Appearance Clear Urine pH 7.0 Ur Specific [place] 1.010 Urine Protein Negative Urine Glucose (UA) Negative Urine Ketones Negative Urine Blood Negative Urine Nitrite Negative Urine Bilirubin Negative Urine Urobilinogen 1.0 Ur Leukocyte Esterase Negative Urine RBC 0 Urine WBC 0 Ur Epithelial Cells 0 Urine Bacteria 0 Stool Occult Blood Positive H Patient ABO/Rh A POSITIVE Antibody Screen Negative Crossmatch See Detail 12/17/20 07:56 WBC RBC Hgb 7.7 L* D Hct 26.1 L D MCV MCH MCHC RDW Plt Count MPV Absolute Neuts (auto) Absolute Lymphs (auto) Absolute Monos (auto) Absolute Eos (auto) Neutrophils % Neutrophils % (Manual) Lymphocytes % Lymphocytes % (Manual) Monocytes % Monocytes % (Manual) Eosinophils % Basophils % Eosinophils Nucleated RBCs Platelet Estimate Normal RBC Morphology PT INR PTT (SP) Sodium Potassium Chloride Carbon Dioxide Anion Gap BUN Creatinine BUN/Creatinine Ratio Random Glucose Serum Osmolality Lactic Acid Calcium Total Bilirubin AST ALT Alkaline Phosphatase Troponin I Serum Total Protein Albumin Globulin Albumin/Globulin Ratio TSH Urine Color Urine Appearance Urine pH Ur Specific [place] Urine Protein Urine Glucose (UA) Urine Ketones Urine Blood Urine Nitrite Urine Bilirubin Urine Urobilinogen Ur Leukocyte Esterase Urine RBC Urine WBC Ur Epithelial Cells Urine Bacteria Stool Occult Blood Patient ABO/Rh Antibody Screen Crossmatch The patient has done fairly well overnight. He received 2 units of packed red blood cells and his hemoglobin is up to 7.7. He seems to be mentating better though he does likely have some very mild dementia at baseline. He has not thr own up any blood. He has not passed any blood from below since he has been here. The patient is being transferred [facility] for further GI evaluation and monitoring. Transferring for specialty care. alyson [email or web address] [id number] <Alyson Maynard - Last Filed: 12/17/20 10:33> Departure - Departure Diet: other - NPO <Mayte Villagran - Last Filed: 12/17/20 04:52> <Alyson Maynard - Last Filed: 12/17/20 10:33> - Departure Clinical Impression: GI bleed not requiring more than 4 units of blood in 24 hours, ICU, or surgery, Severe anemia Disposition: Transfer to Hospital Referrals: Lee Maynard MD [Primary Care Provider] - 1-2 Weeks Home Medications: Ambulatory Orders Tiotropium Dilliner Monohydrate [Spiriva Respimat] 2.5 mcg IN DAILY 03/01/20 Bifidobacterium Infantis [Align] 4 mg PO DAILY cap 08/02/20 Albuterol Sulfate Nebs [Proventil Nebs] 2.5 mg NEB QID PRN 08/18/20 Ferrous Gluconate [Ferrous Gluconate Iron] 28 mg PO DAILY 08/18/20 Fluticasone Furoate-Vilanterol [Breo Ellipta 200-25 Mcg/INH] 1 inh IN DAILY 08/18/20 Methylprednisolone [Medrol Dose John] 4 mg PO DAILY 6 Days #21 tab 10/14/20 Transfer to Outside Facility - Transfer Information Decision to Transfer Date: 12/16/20 Decision to Transfer Time: 22:33 Reason for Transfer: required specialist not available Accepting Facility: [facility] <Mayte Villagran - Last Filed: 12/17/20 04:52>
--- NOTE | 2020-12-16 22:06 | RAD ---
EXAM DESCRIPTION: Chest,1 View CLINICAL HISTORY: ams COMPARISON: October 14, 2020 FINDINGS: Cardiac silhouette is within normal limits. EKG leads project over the chest. There is no focal parenchymal or pleural disease. There is no acute osseous process visualized. IMPRESSION: No evidence of acute cardiopulmonary disease. Electronically signed by: Roger Ibarra MD 12/16/2020 10:05 PM [employer]
[2020-12-16] MEDS ORDERED: ACETAMINOPHEN 325 MG TAB PO ONE (22:24)
[2020-12-16] MEDS ORDERED: diphenhydrAMINE HCL 50 MG/ML VIAL IV ONE (22:24)
--- NOTE | 2020-12-16 22:27 | CT ---
EXAM DESCRIPTION: CT of the head without contrast CLINICAL HISTORY: confusion COMPARISON: 04/20/2020 TECHNIQUE: Axial CT of the head obtained from the skull apex to the skull base without contrast. FINDINGS: No acute intracranial hemorrhage identified. No mass, mass effect, shift of the midline, abnormal extra-axial fluid collection or CT evidence of acute ischemic change identified. Mild enlargement of ventricular system out of proportion to the sulcal spaces is stable. Scattered areas of hypodensity throughout the supratentorial white matter are nonspecific and may be related to chronic small vessel ischemic change. 2 interval coils in the posterior third ventricle and left lateral ventricle again identified. The visualized paranasal sinuses and mastoid air cells are well aerated. No skull fracture identified. Visualized orbits and globes are unremarkable. Atherosclerotic calcification of the intracranial internal carotid arteries. Mild contusion in the right frontal scalp soft tissues. IMPRESSION: 1. No acute intracranial abnormality by CT criteria. This exam was performed according to our departmental dose-optimization program, which includes automated exposure control, adjustment of the mA and/or kV according to patient size and/or use of iterative reconstruction technique. Electronically signed by: Clemente Anna 12/16/2020 10:25 PM [facility]
[2020-12-16] MEDS ORDERED: SODIUM CHLORIDE 0.9% 500ML 500 ML IVS SCH (22:30)
[2020-12-16] MEDS ORDERED: PANTOPRAZOLE INJECTION 80 MG in SODIUM CHLORIDE 0.9% 100ML 80 ML IVPB ONE (22:38)
[2020-12-17] MEDS ORDERED: SUCRALFATE 1 GM/10 ML 1 GM UD PO ONE (07:56)
[2020-12-17] MEDS ORDERED: PANTOPRAZOLE SODIUM IV 40 MG VIAL IV ONE (07:56)
[2020-12-17 09:32] VITALS: O2SAT 100
[2020-12-17 12:15] VITALS: BP 139/66; TEMP 98
== END 2020-12-17 11:25 | disposition short-term general hospital (02) ==
LOC: ER 21:39
DX: K92.1 Melena (principal); D50.0 Iron deficiency anemia secondary to blood loss (chronic); F32.9 Major depressive disorder, single episode, unspecified; R41.0 Disorientation, unspecified; R42 Dizziness and giddiness; J44.9 Chronic obstructive pulmonary disease, unspecified; F03.90 Unspecified dementia, unspecified severity, without behavioral disturbance, psychotic disturbance, mood disturbance, and anxiety; I69.398 Other sequelae of cerebral infarction; Z20.822 Contact with and (suspected) exposure to COVID-19; Z99.81 Dependence on supplemental oxygen; Z87.19 Personal history of other diseases of the digestive system; Z79.899 Other long term (current) drug therapy; Z88.5 Allergy status to narcotic agent; Z88.8 Allergy status to other drugs, medicaments and biological substances; Z87.891 Personal history of nicotine dependence
CPT/HCPCS: 36415; 70450; 71045; 80053; 81001; 82270; 83605; 84443; 84484; 85014; 85018; 85025; 85610; 85730; 86850; 86900; 86901; 86922; 87635; 93005; J1200; J7040; J7050; P9016